=== PATIENT | female | born 1950 | race Caucasian/White ===

== ENCOUNTER → 2018-06-09 14:51 | Outpatient (CLI) | payer MEDICARE, BC, OTHER, SELFPAY ==
[2018-03-03 13:42] VITALS: TEMP 37.1
[2018-06-09 15:10] LABS: Hematocrit 34.2 % (36-46); Hemoglobin 11.4 g/dL (12.0-16.0); Mean Corpuscular HGB Conc 33.3 % (30-36); Mean Corpuscular Hemoglobin 27.7 PG (26-34); Mean Corpuscular Volume 83.2 fL (80-100); Platelet Count 225 X10^3/uL (150-400); Red Blood Cell Count 4.11 X10^6/uL (4.0-5.2); Red Cell Distribution Width 14.8 % (11.6-14.8); White Blood Cell Count 6.5 X10^3/uL (4.5-11.0)
[2018-06-09 15:27] LABS: Neutrophils Absolute Manual 3445 /uL (3000-5900); Total Cells Counted 100
[2018-06-09 15:28] LABS: Anisocytosis 1+; Ovalocytes 1+
[2018-06-09 15:40] LABS: HEMOLYSIS < 15 (0-50); Iron 47 ug/dL (37-170)
[2018-06-09 15:43] LABS: Alanine Aminotransferase 29 IU/L (9-52); Albumin 3.9 g/dL (3.5-5.0); Albumin Globulin Ratio 1.3 (1.0-2.8); Alkaline Phosphatase 78 U/L (38-126); Aspartate Aminotransferase 39 IU/L (14-36); Bilirubin Total 0.4 mg/dL (0.2-1.3); Blood Urea Nitrogen 12 mg/dL (7-17); Carbon Dioxide 28 mmol/L (22-32); Chloride 102 mmol/L (98-107); Estimated Glomerular Filt Rate > 60.0 mL/min (>60); Globulin 2.9 g/dL (1.7-4.1); Glucose 152 mg/dL (80-110); HEMOLYSIS < 15 (0-50); Sodium 140 mmol/L (137-145); Total Protein 6.8 g/dL (6.3-8.2)
[2018-06-09 15:50] LABS: Percent Iron Saturation 12 % (15-50); Total Iron Binding Capacity 393 ug/dL (265-497); Transferrin 318 mg/dL (206-381)
== END ==
PROVIDERS: Family Provider Family Medicine; PCP Family Medicine; Visit Provider Nurse Practitioner Gerontology
DX: D50.9 Iron deficiency anemia, unspecified (principal)
CPT/HCPCS: 36415; 80053; 83540; 83550; 85025

== ENCOUNTER → 2018-06-10 09:43 | Outpatient (CLI) | payer MEDICARE, BC, OTHER, SELFPAY ==
--- NOTE | 2018-06-10 | DI.RAD.S_ITS ---
PROCEDURE: XR ABDOMEN 1V INDICATIONS: FOREIGN BODY IN DIGESTIVE SYSTEM TECHNIQUE: One view of the abdomen acquired. COMPARISON: [facility], CR, XR KUB, 07/06/2015, 12:37. FINDINGS: Surgical changes and devices: Surgical clips again noted along the left iliac region. Bowel: Bowel gas pattern is normal without evidence of obstruction. No radiopaque foreign bodies. Soft tissues: No suspicious abdominal calcifications. Visualized solid organ contours appear normal in size. Bones: No suspicious bony lesions. IMPRESSION: Normal bowel pattern, no foreign body seen. Dictated by: Almas Sadler M.D. on 06/10/2018 at 10:02 Approved by: Almas Sadler M.D. on 06/10/2018 at 10:05
== END ==
PROVIDERS: Family Provider Family Medicine; PCP Family Medicine; Visit Provider Internal Medicine Gastroenterology
DX: T18.9XXA Foreign body of alimentary tract, part unspecified, initial encounter (principal)
CPT/HCPCS: 74018

== ENCOUNTER → 2018-07-10 10:44 | Outpatient (CLI) | payer MEDICARE, BC, OTHER, SELFPAY ==
--- NOTE | 2018-07-10 | DI.MG.S_ITS ---
BILATERAL DIGITAL SCREENING MAMMOGRAM 3D/2D WITH CAD: 07/10/2018 CLINICAL: Routine screening. Comparison is made to exams dated: 07/03/2017 mammogram, 06/22/2016 mammogram, and 06/21/2015 mammogram - [facility]. There are scattered fibroglandular elements in both breasts. Current study was also evaluated with a Computer Aided Detection (CAD) system. No significant masses, calcifications, or other findings are seen in either breast. There is a linear scar marker overlying the upper left breast. There has been no significant interval change. IMPRESSION: NEGATIVE There is no mammographic evidence of malignancy. A 1 year screening mammogram is recommended. This exam was interpreted at Station ID: [id number]. NOTE: For mammograms, a report in lay terms will be sent to the patient. Approximately 15% of breast malignancies will not be visualized mammographically. In the management of a palpable breast mass, a negative mammogram must not discourage biopsy of a clinically suspicious lesion. Electronically Signed By: Germán Mcmullen M.D. ecl/:07/11/2018 03:35:57 letter sent: Normal Exam ACR BI-RADS Category 1: Negative 3341F
== END ==
PROVIDERS: Family Provider Family Medicine; PCP Family Medicine; Visit Provider Family Medicine
DX: Z12.31 Encounter for screening mammogram for malignant neoplasm of breast (principal)
CPT/HCPCS: 77063; 77067

== ENCOUNTER → 2018-07-10 11:34 | Outpatient (CLI) | payer MEDICARE, BC, OTHER, SELFPAY ==
[2018-07-10 12:34] LABS: Estimated Glomerular Filt Rate > 60.0 mL/min (>60)
== END ==
PROVIDERS: PCP Family Medicine; Visit Provider Otolaryngology
DX: J38.01 Paralysis of vocal cords and larynx, unilateral (principal); R22.1 Localized swelling, mass and lump, neck
CPT/HCPCS: 36415; 82565

== ENCOUNTER → 2018-07-14 09:41 | Outpatient (CLI) | payer MEDICARE, BC, OTHER, SELFPAY ==
--- NOTE | 2018-07-14 | DI.CT.S_ITS ---
PROCEDURE: CT SOFT TISSUE NECK W CON INDICATIONS: RIGHT VOCAL CHORD TECHNIQUE: After the administration of intravenous contrast, 3.0 mm axial sections acquired from the skull base to the upper chest. Additional 1.5 mm axial sections acquired through the true vocal cords. 1 mm thick coronal reformats were generated. For radiation dose reduction, the following was used: automated exposure control. COMPARISON: None. FINDINGS: Image quality: Excellent. Vocal cords: The right vocal cord is minimally thickened compared to the left. On coronal images, there is potential hyperenhancement seen of the right vocal cord. The false vocal cords are unremarkable. Neck spaces: The oropharynx, nasopharynx, and pharynx demonstrate no mucosal lesions. The pyriform sinuses, epiglottis, vallecular, and tongue base all appear normal. Extramucosal spaces of the neck are unremarkable. Lymph nodes: No enlarged lymph nodes seen throughout the neck. Vessels: Visualized vasculature appears patent. Glands: The parotid and submandibular glands appear normal. Thyroid gland is small in size. Miscellaneous: Visualized brain and orbits appear unremarkable. Lung apices appear clear. Superficial soft tissues appear normal. Bones: No suspicious bony lesions. Visualized sinuses and mastoids appear unremarkable. Degenerative changes are seen, which are most prominent involving the C6-C7 level. IMPRESSION: The right vocal cord is minimally thickened and potentially hyperenhancing compared to the left. Please correlate with direct visualization via laryngoscopy. Dictated by: Pierre Trinidad M.D. on 07/14/2018 at 10:29 Approved by: Pierre Trinidad M.D. on 07/14/2018 at 10:35
== END ==
PROVIDERS: Family Provider Family Medicine; PCP Family Medicine; Visit Provider Otolaryngology
DX: J38.2 Nodules of vocal cords (principal); J38.00 Paralysis of vocal cords and larynx, unspecified
CPT/HCPCS: 70491; Q9967

== ENCOUNTER → 2018-09-03 12:38 | Outpatient (CLI) | payer MEDICARE, BC, OTHER, SELFPAY | PROVIDERS: Family Provider Family Medicine; PCP Family Medicine; Visit Provider Family Medicine | DX: Z13.820 Encounter for screening for osteoporosis (principal); M85.851 Other specified disorders of bone density and structure, right thigh; Z78.0 Asymptomatic menopausal state; E11.9 Type 2 diabetes mellitus without complications; E07.9 Disorder of thyroid, unspecified | CPT/HCPCS: 77080 ==

== ENCOUNTER → 2018-09-09 14:26 | Outpatient (CLI) | payer MEDICARE, BC, OTHER, SELFPAY ==
[2018-09-09 15:15] LABS: Add Manual Diff / Slide Review NO; Basophils Percent Auto 0.7 % (0-2); Eosinophils Percent Auto 2.9 % (2-4); Hematocrit 38.4 % (36-46); Hemoglobin 12.9 g/dL (12.0-16.0); Lymphocytes Percent Auto 35.3 % (25-40); Mean Corpuscular HGB Conc 33.5 % (30-36); Mean Corpuscular Volume 86.4 fL (80-100); Monocytes Percent Auto 6.5 % (3-14); Neutrophils Absolute Auto 3700 /uL (3000-5900); Neutrophils Percent Auto 54.6 % (50-75); Platelet Count 185 X10^3/uL (150-400); Red Blood Cell Count 4.44 X10^6/uL (4.0-5.2); Red Cell Distribution Width 18.7 % (11.6-14.8); White Blood Cell Count 6.7 X10^3/uL (4.5-11.0)
[2018-09-09 15:25] LABS: Alanine Aminotransferase 37 IU/L (9-52); Albumin 4.1 g/dL (3.5-5.0); Albumin Globulin Ratio 1.5 (1.0-2.8); Alkaline Phosphatase 69 U/L (38-126); Aspartate Aminotransferase 42 IU/L (14-36); BUN Creatinine Ratio 14.3 (6-22); Bilirubin Total 0.3 mg/dL (0.2-1.3); Blood Urea Nitrogen 10 mg/dL (7-17); Carbon Dioxide 28 mmol/L (22-32); Chloride 102 mmol/L (98-107); Estimated Glomerular Filt Rate > 60.0 mL/min (>60); Globulin 2.7 g/dL (1.7-4.1); Glucose 138 mg/dL (80-110); HEMOLYSIS < 15 (0-50); Potassium 4.1 mmol/L (3.4-5.1); Sodium 141 mmol/L (137-145); Total Protein 6.8 g/dL (6.3-8.2)
[2018-09-09 15:53] LABS: HEMOLYSIS < 15 (0-50); Iron 87 ug/dL (37-170)
[2018-09-09 16:04] LABS: Percent Iron Saturation 29 % (15-50); Total Iron Binding Capacity 296 ug/dL (265-497); Transferrin 229 mg/dL (206-381)
== END ==
PROVIDERS: Family Provider Family Medicine; PCP Family Medicine; Visit Provider Internal Medicine Hematology & Oncology
DX: D50.9 Iron deficiency anemia, unspecified (principal)
CPT/HCPCS: 36415; 80053; 82728; 83540; 83550; 85025

== ENCOUNTER 2018-09-17 12:30 | Outpatient (RCR) | payer MEDICARE, BC, OTHER, SELFPAY | END 2018-10-13 10:23 | LOC: SP 12:30 | PROVIDERS: Family Provider Family Medicine; PCP Family Medicine; Visit Provider Specialist | DX: J38.01 Paralysis of vocal cords and larynx, unilateral (principal) | CPT/HCPCS: 92507; 92524; 92526; 92610 ==

== ENCOUNTER → 2019-08-04 09:48 | Outpatient (CLI) | payer MEDICARE, BC, OTHER, SELFPAY ==
--- NOTE | 2019-08-04 | DI.MG.S_ITS ---
BILATERAL DIGITAL SCREENING MAMMOGRAM 3D/2D WITH CAD: 08/04/2019 CLINICAL: Routine screening. Comparison is made to exams dated: 07/10/2018 mammogram, 07/03/2017 mammogram, and 06/22/2016 mammogram - [facility]. There are scattered fibroglandular elements in both breasts. Current study was also evaluated with a Computer Aided Detection (CAD) system. No significant masses, calcifications, or other findings are seen in either breast. There has been no significant interval change. IMPRESSION: NEGATIVE There is no mammographic evidence of malignancy. A 1 year screening mammogram is recommended. This exam was interpreted at Station ID: [id number]. NOTE: For mammograms, a report in lay terms will be sent to the patient. Approximately 15% of breast malignancies will not be visualized mammographically. In the management of a palpable breast mass, a negative mammogram must not discourage biopsy of a clinically suspicious lesion. Electronically Signed By: Carolina barnes/cynthia:08/04/2019 10:29:35 letter sent: Normal Exam ACR BI-RADS Category 1: Negative 3341F
== END ==
PROVIDERS: Family Provider Family Medicine; PCP Family Medicine; Visit Provider Family Medicine
DX: Z12.31 Encounter for screening mammogram for malignant neoplasm of breast (principal)
CPT/HCPCS: 77063; 77067

== ENCOUNTER → 2020-05-11 08:28 | Outpatient (CLI) | payer MEDICARE, BC, OTHER, SELFPAY ==
--- NOTE | 2020-05-11 | DI.NM.S_ITS ---
PROCEDURE: NM GASTRIC EMPTYING STUDY RADIOPHARMACEUTICAL: 1.0 mCi Tc-99m sulfur colloid in an egg sandwich. INDICATIONS: Nausea with vomiting, unspecified TECHNIQUE: A Tc-99m labeled sulfur colloid labeled egg sandwich or oatmeal was served to the patient. Anterior and posterior planar images of the abdomen were obtained at 0 minutes and 30 minutes, then at hourly intervals up to 4 hours. The patient was upright and ambulating during the interval. COMPARISON: None. FINDINGS: The stomach has normal size, morphology, and position. There is delayed emptying of solid gastric contents from the stomach by visual inspection. No gastroesophageal reflux is visualized. The percentage of tracer retained at specific time points are as follows: Time point Percent gastric retention Normal range 1 hour 11% 30% to 90% T1/2: 285 minutes. IMPRESSION: Delayed gastric emptying. Dictated by: Jagdeep Mccormick M.D. on 05/11/2020 at 13:36 Approved by: Jagdeep Mccormick M.D. on 05/11/2020 at 13:39
== END ==
PROVIDERS: Family Provider Family Medicine; PCP Family Medicine; Referring Provider Internal Medicine; Visit Provider Internal Medicine
DX: K30 Functional dyspepsia (principal); R14.0 Abdominal distension (gaseous); R11.2 Nausea with vomiting, unspecified
CPT/HCPCS: 78264; A9541

== ENCOUNTER → 2020-06-22 12:44 | Outpatient (CLI) | payer MEDICARE, BC, OTHER, SELFPAY ==
--- NOTE | 2020-06-22 13:55 | DIET.PN ---
Diabetes Intake: Initial Assessment Assess: Ms. Escamilla is a 70 YOF referred for type 2 diabetes. She has a long standing hx (90?s) of Type 2 Diabetes with a strong family hx including mother, grandmother, and brother. She reports shas not been eating well. Unsure what to eat related to GI issues for the last 5-6 mo. Intake includes a lot of cereal, toast, eggs, nutrition supplements, sweet treats, tea, and occasional carbonated beverage. She monitor?s her BG every other day. Labs: Per pt report: A1c: 7.0 Meds: glipizide am; metformin 500mg BID Wt: 218lb Ht: 67in BMI: 34.14 DX: Altered nutrition related laboratory values related to impaired glucose metabolism, lack of previous exposure to nutrition information as evidenced by pt report, diagnosis of diabetes, previous diet high in refined carbohydrates. Intervention: 1. Completed intake assessment. Discussed barriers to care. 2. Discussed pathophysiology of diabetes. Reviewed A1c and its correlation to blood glucose numbers. Discussed recommended BG ranges. 3. Discussed importance of self-monitoring, how often, and when to check. 4. Reviewed hyper/hypoglycemia and treatment. 5. Reviewed safe disposal of equipment (strip/lancets/insulin needles). 6. Created SMART goals for pt self-care and success. 7. Discussed program curriculum outline and class needs based on individual goals. 8. Discussed Gastroparesis MNT. SMART Goals: 1. Pt would like to lose 10 lb (5%) in the next 3 mo with an overall goal of 185 lb through learning proper eating habits for weight, activity level, and recent GI complications. Monitor/Evaluate: Anticipate excellent compliance. Basic Nutrition class scheduled for Jul 05.
== END ==
PROVIDERS: Family Provider Family Medicine; PCP Family Medicine; Referring Provider Family Medicine; Visit Provider Family Medicine
DX: E11.9 Type 2 diabetes mellitus without complications (principal); Z79.84 Long term (current) use of oral hypoglycemic drugs
CPT/HCPCS: G0108

== ENCOUNTER → 2020-07-05 14:20 | Outpatient (CLI) | payer MEDICARE, BC, OTHER, SELFPAY ==
--- NOTE | 2020-07-05 16:40 | DIET.PN ---
Diabetes: Healthy Eating 1 Intervention: ? Discussed pathophysiology of diabetes and impact of nutrition/diet on blood sugar control.? Discussed fed versus non-fed state.?? ? Reviewed importance of Balance, Variety, and Moderation. ? Discussed the effect of carbohydrates/protein/fat on blood sugar control.? ? Stressed importance of consistent carbohydrate intake at each meal and provided instructions for recommended servings/portions of carbohydrates/protein per meal. Provided educational material. ? Reviewed carbohydrate counting and measuring carbohydrate content via serving sizes and reading nutrition labels.? Provided handouts.?? ? Discussed the difference between simple versus complex carbohydrates and the effect of fiber on blood sugar control.? Discussed various methods to increase fiber content in diet. ? Discussed the plate method for creating more carbohydrate conscious balanced meals. ? Stressed importance of meal timing and not going >4-5 hours between meals. Encouraged adding protein to evening snack to support glucose control overnight. ? Discussed importance of making dietary habits part of lifestyle change.
== END ==
PROVIDERS: Family Provider Family Medicine; PCP Family Medicine; Referring Provider Family Medicine; Visit Provider Family Medicine
DX: E11.9 Type 2 diabetes mellitus without complications (principal); Z71.3 Dietary counseling and surveillance
CPT/HCPCS: G0109

== ENCOUNTER → 2020-07-14 14:15 | Outpatient (CLI) | payer MEDICARE, BC, OTHER, SELFPAY ==
--- NOTE | 2020-07-14 16:03 | DIET.PN ---
Diabetes: Healthy Eating 2 Intervention: Fats effects on glucose, weight, heart disease, cholesterol Sat Vs Unsat Protein- animal and plant based options Low, med, high fat meats Sugar substitutes Sodium Health claims Grocery shopping guidelines Eating away from home Alcohol Sick day guidelines Ketone Testing
== END ==
PROVIDERS: Family Provider Family Medicine; PCP Family Medicine; Referring Provider Family Medicine; Visit Provider Family Medicine
DX: E11.9 Type 2 diabetes mellitus without complications (principal); Z71.3 Dietary counseling and surveillance
CPT/HCPCS: G0109

== ENCOUNTER → 2020-07-26 09:52 | Outpatient (CLI) | payer MEDICARE, BC, OTHER, SELFPAY ==
[2020-07-26 10:49] VITALS: BMI 33.6
--- NOTE | 2020-07-26 10:59 | DIET.PN ---
DIABETES Nutrition Initial Assessment:? ASSESS:?? Ms. Escamilla is a 70 yof??referred for type 2 diabetes seen as part of DSME program. She continues to have frequent nausea, but reports only 2 episodes of vomiting in the last month with dietary changes. She is incorporating small, frequent meals into her routine and is limiting fiber to 3grams/meal. She walking the park 3x/wk and working in her garden the other days, but has noticed this to be more challenging as her energy levels are very low due to anemia. ??? LABS: Per pt report:? A1c: 7.1 FB?s ? MEDS:?? no change ? DIET: Per 24-hour recall:? B: 2 slices white toast w/ apple sauce L: protein drink w/ 2 crackers and cheese D: tilapia w/ mashed potatoes and peas, ice cream Eating Out: rarely Changes in Appetite: less hungry; nervous to eat Nutrition Supplements: Papaya enzyme ? Weight: 214lb Height: 67in BMI: ? 33.5 ? Exercise:? walking; gardening NUTRITION DX 1. Altered Nutrition related labs related to impaired glucose metabolism, lack of previous exposure to accurate nutrition information as evidenced by pt report, dx of diabetes, previous diet high in refined carbohydrates.? INTERVENTION(s): 1. Reviewed pathophysiology of diabetes and impact of nutrition/diet on blood sugar control.? Discussed fed versus non-fed state.?? 2. Discussed the effect of carbohydrates/protein/fat on blood sugar control.? Stressed importance of consistent carbohydrate intake at each meal and provided instructions for recommended servings/portions of carbohydrates/protein per meal. Provided pt with educational material. 3. Reviewed carbohydrate counting and measuring carbohydrate content via serving sizes and reading nutrition labels.? Provided handouts.?? 4. Provided gastroparesis handout and encouraged limiting fiber to 3g/meal, limiting saturated fats, and incorporating nutrition supplements for protein support. 5. Stressed importance of meal timing and not going >4 hours between meals. Encouraged adding protein to meals and snacks for glucose control. 6. Discussed healthy weight loss goals of 1-2lbs per week through diet and exercise.? Pt agreeable to walking at least 30 minutes daily to encourage gastric movement. 7. Recommend alternating monitoring fasting and evening glucose. MONITOR/EVALUATE: Anticipate good compliance.? Nutrition follow-up scheduled for 1 month.
== END ==
PROVIDERS: Family Provider Family Medicine; PCP Family Medicine; Referring Provider Family Medicine; Visit Provider Family Medicine
DX: E11.9 Type 2 diabetes mellitus without complications (principal); R11.0 Nausea; E66.9 Obesity, unspecified; Z68.33 Body mass index [BMI] 33.0-33.9, adult; Z71.3 Dietary counseling and surveillance
CPT/HCPCS: G0109

== ENCOUNTER → 2020-08-04 12:48 | Outpatient (CLI) | payer MEDICARE, BC, OTHER, SELFPAY ==
[2020-08-04 13:04] LABS: Add Manual Diff / Slide Review NO; Basophils Absolute Auto 100 /uL (0-100); Basophils Percent Auto 0.7 % (0-2); Eosinophils Absolute Auto 200 /uL (0-450); Eosinophils Percent Auto 2.3 % (2-4); Hematocrit 32.5 % (36-46); Hemoglobin 10.4 g/dL (12.0-16.0); Lymphocytes Absolute Auto 2700 /uL (1100-4500); Lymphocytes Percent Auto 35.2 % (25-40); Mean Corpuscular Hemoglobin 24.5 PG (26-34); Mean Corpuscular Volume 76.4 fL (80-100); Monocytes Absolute Auto 600 /uL (0-900); Monocytes Percent Auto 7.7 % (3-14); Neutrophils Absolute Auto 4200 /uL (1500-7000); Neutrophils Percent Auto 54.1 % (50-75); Platelet Count 298 X10^3/uL (150-400); Red Blood Cell Count 4.25 X10^6/uL (4.0-5.2); Red Cell Distribution Width 15.9 % (11.6-14.8); White Blood Cell Count 7.8 X10^3/uL (4.5-11.0)
[2020-08-04 13:21] LABS: HEMOLYSIS < 15 (0-50); Iron 37 ug/dL (37-170)
[2020-08-04 13:32] LABS: Percent Iron Saturation 8 % (15-50); Total Iron Binding Capacity 447 ug/dL (265-497); Transferrin 366 mg/dL (206-381)
[2020-08-04 14:00] LABS: Ferritin 6 ng/mL (11-264)
== END ==
PROVIDERS: Family Provider Family Medicine; PCP Family Medicine; Referring Provider Internal Medicine Hematology & Oncology; Visit Provider Internal Medicine Hematology & Oncology
DX: D50.9 Iron deficiency anemia, unspecified (principal)
CPT/HCPCS: 36415; 82728; 83540; 83550; 85025

== ENCOUNTER → 2020-08-10 10:59 | Outpatient (CLI) | payer MEDICARE, BC, OTHER, SELFPAY ==
--- NOTE | 2020-08-10 | DI.MG.S_ITS ---
BILATERAL DIGITAL SCREENING MAMMOGRAM 3D/2D WITH CAD: 08/10/2020 CLINICAL: Routine screening. Comparison is made to exams dated: 08/04/2019 mammogram, 07/10/2018 mammogram, 07/03/2017 mammogram, and 06/22/2016 mammogram - [facility]. There are scattered fibroglandular elements in both breasts. Current study was also evaluated with a Computer Aided Detection (CAD) system. No significant masses, calcifications, or other findings are seen in either breast. There has been no significant interval change. IMPRESSION: NEGATIVE There is no mammographic evidence of malignancy. A 1 year screening mammogram is recommended. This exam was interpreted at Station ID: [id number]. NOTE: For mammograms, a report in lay terms will be sent to the patient. Approximately 15% of breast malignancies will not be visualized mammographically. In the management of a palpable breast mass, a negative mammogram must not discourage biopsy of a clinically suspicious lesion. Electronically Signed By: Aditya jiménez/cynthia:08/10/2020 12:44:16 letter sent: Normal Exam ACR BI-RADS Category 1: Negative 3341F
== END ==
PROVIDERS: Family Provider Family Medicine; PCP Family Medicine; Referring Provider Family Medicine; Visit Provider Family Medicine
DX: Z12.31 Encounter for screening mammogram for malignant neoplasm of breast (principal)
CPT/HCPCS: 77063; 77067

== ENCOUNTER → 2020-08-23 09:47 | Outpatient (CLI) | payer MEDICARE, BC, OTHER, SELFPAY ==
--- NOTE | 2020-08-23 10:40 | DIET.PN ---
Diabetes Follow Up Assess: Ms Escamilla is a 70 yof seen for 3 mo follow up visit for diabetes and gastroparesis. She reports improvement in GI complications with only 1 episode of nausea with abdominal pain in the last month. She continues to eat small meals when she is hungry with limited fiber (3g/meal). She continues to aim for daily activity through walking or gardening, but continues to find this challenging with decreased energy levels. She recently started seeing Dr. Reina for iron infusions. Labs: A1c: 7.1 Meds: glipizide am; metformin 500mg BID Dietary changes: reduced fiber intake, foods with less than 3 grams fiber/serving Ht: 67in Wt: 214lb BMI: 33.5 Nutrition DX: Altered nutrition related laboratory values related to impaired glucose metabolism, lack of previous exposure to nutrition information as evidenced by pt report, diagnosis of diabetes, previous diet high in refined carbohydrates. Intervention: 1. Completed follow up assessment. Reviewed barriers to care. 2. Reviewed new labs and importance of continued BG monitoring. 3. Reviewed SMART goals and made modifications where appropriate including wt management, activity, and A1c goals. 4. Discussed plan for ongoing support. Provided information for continued support and success. SMART goals: 1. Pt would like to lose 10 lb (5%) in the next 3 mo with an overall goal of 185lb through continued improvement in eating habits for weight, activity level, and gastroparesis. Monitor/Evaluate: Pt will follow up in 3 mo to discuss new labs and barriers to care.
== END ==
PROVIDERS: Family Provider Family Medicine; PCP Family Medicine; Referring Provider Family Medicine; Visit Provider Family Medicine
DX: E11.43 Type 2 diabetes mellitus with diabetic autonomic (poly)neuropathy (principal); K31.84 Gastroparesis; E66.9 Obesity, unspecified; Z79.84 Long term (current) use of oral hypoglycemic drugs; Z68.33 Body mass index [BMI] 33.0-33.9, adult; Z71.3 Dietary counseling and surveillance
CPT/HCPCS: G0109

== ENCOUNTER → 2020-11-03 14:20 | Oncology outpatient (ONC) | payer MEDICARE, BC, OTHER, SELFPAY ==
[2018-07-28] MEDS: IRON SUCROSE 200 MG in SODIUM CHLORIDE 0.9% 100 ML 220 ML IV (15:38)
--- NOTE | 2018-07-28 16:36 | PC.NURSE ---
Vital signs taken but machine inadvertently shut off before recording
[2018-08-04 14:54] VITALS: BP 130/68; PULSE 72; RESP 16; TEMP 36.8; O2SAT 97
[2018-08-04] MEDS: IRON SUCROSE 200 MG in SODIUM CHLORIDE 0.9% 100 ML 220 ML IV (15:00)
[2018-08-11 14:49] VITALS: BP 144/75; PULSE 76; RESP 18; TEMP 36.7; O2SAT 98
[2018-08-11] MEDS: IRON SUCROSE 200 MG in SODIUM CHLORIDE 0.9% 100 ML 220 ML IV (14:53)
--- NOTE | 2018-09-15 15:14 | P.PNONC_ITS ---
PN -Subjective Interval history: 68-year-old female with iron deficiency anemia status post 5 infusions weekly of iron sucrose (Venofer). Patient has tolerated the infusion very well. She completed on 08/11/2018. She presents here today for scheduled follow-up. Patient said that she is feeling very good pressure has good energy good appetite. She denies any nausea vomiting. No diarrhea no constipation. For detailed medical history please see my previous note dated 06/09/2018. Briefly she has a long history of iron deficiency anemia likely due to obscured gastrointestinal bleeding. Patient underwent extensive surgical workup in 2017 including EGD, colonoscopy, small-bowel capsule endoscopy, but no obvious bleeding sites were identified. CT scan in 01/15/2018 was unremarkable. - Additional ROS All systems PM: reviewed and no additional remarkable complaints except as stated Home Medications and Allergies Home Medications Medication Instructions Recorded Confirmed Type cyanocobalamin (vitamin B-12) 1,000 mcg PO Q DAY #0 01/18/17 06/16/18 History [Vitamin B-12] cholecalciferol (vitamin D3) 1 tab PO QDAY #0 12/27/17 06/16/18 History [Vitamin D3] Allergies Allergy/AdvReac Type Severity Reaction Status Date / Time No Known Drug Allergies Allergy Verified 06/16/18 14:52 Exam Vital signs: Last Vital Signs Temp 98.1 F 08/11/18 14:49 Pulse 76 08/11/18 14:49 Resp 18 08/11/18 14:49 BP 144/75 H 08/11/18 14:49 Pulse Ox 98 08/11/18 14:49 ECOG 1 Narrative: Constitutional: WDWN, NAD, obese, well groomed, pleasant and cooperative. HEENT: NCAT, EOMI, PERRLA, anicteric sclera, no hearing difficulty; Oral mucus membrane moist and without ulcers. Neck: Supple, symmetrical, and tracheal midline; No palpable thyromegaly and no palpable lymph nodes. Respiratory: No use of accessory muscles. Clear to auscultation, and no wheezes or rales or rubs. Cardiovascular: Regular rate and rhythm, S1 and S2 normal, no murmurs gallops or rubs. No JVD. No pitting edema of lower extremities. Abdomen: Soft, nontender, non-distended, bowel sounds normal, no palpable organomegaly, no hernia, no palpable masses. Lower extremities: No palpable pedal edema. Lymphatic: no palpable lymph nodes in the neck, axillae, or groins. Musculoskeletal: normal gait and station, no clubbing, no cyanosis, no pitting edema. Skin: no rashes, no ulcers, no petechiae Neurological: Awake and alert and oriented x3. CN II-XII grossly intact. No focal motor or sensory deficit. Psychiatric: Good judgment, good insight, normal affect, normal thought process , cooperative, no depression, no anxiety. Results - Labs 09/09/2018: WBC 6.7, hemoglobin 12.9, hematocrit 38.4, MCV 86.4, platelets 185. Sodium 141, potassium 4.1, chloride 102, carbon dioxide 28, BUN 10, creatinine 0.7, glucose 138, calcium 9.0, iron 87, TIBC 296, saturation 29%, transferrin 229, ferritin 99, total bilirubin 0.3, AST 42, ALT 37, alk-phos 69, total protein 6.8, albumin 4.1, - Imaging Additional studies: Procedures Closed [endoscopic] biopsy of large intestine (03/03/14) Other endoscopy of small intestine (03/03/14) Assessment and Plan (1) Iron (Fe) deficiency anemia Assessment and Plan: I reviewed the laboratory tests with the patient. Patient has normal CBC with differentials and normal iron storage. Patient had EGD and colonoscopy in 2017 and small bowel capsule endoscopy in the same year. No obvious bleeding sites were identified. I talked with the patient that she will need continued follow- up. She will need iron infusion on as needed basis. Patient voiced understanding. The patient will continue follow-up with Dr. Flowers, her primary care provider. If there are any new signs of iron deficiency anemia, she will call us for follow-up visit.
[2018-09-15 15:17] VITALS: BP 149/80; PULSE 84; RESP 18; TEMP 36.9; O2SAT 100
--- NOTE | 2020-07-20 09:19 | ONC.MSW ---
Description: New Referral Navigation Reason for Referral: Anemia Activity: Reviewed referral, assessed for medical status and immediate needs. Forwarded to scheduling for next available initial consult visit.
[2020-08-04 12:05] VITALS: BP 152/67; PULSE 84; RESP 18; TEMP 36.6; O2SAT 97
--- NOTE | 2020-08-04 12:10 | P.PNONC_ITS ---
PN -Subjective Interval history: 70-year-old female with iron deficiency anemia of unknown etiology. She requires intermittent iron sucrose (Venofer) infusion. I saw the patient last time on 09/15/2018. Since then patient has been followed with Dr. Flowers, her primary care provider. Patient has had multiple workup in 2017 including EGD, colo noscopy, small-bowel capsule endoscopy, but no obvious bleeding sites were identified. CT scan in 01/15/2018 was unremarkable. Recently, she said she felt tired. She said she gets that symptoms when her iron is low. In addition she also noticed that she has craving for salt. Those are the russell is for her to know that her iron is low. She was seen and Dr. carter office on 07/11/2020. Lab tests showed vitamin B12 less than 50 pg/cc. WBC 5.9, hemoglobin 10.5, hematocrit 32.4, MCV 78.4, platelets 278. She was then started on Vitamin B12 injection 2000 mcg every 2 weeks, and is now being followed by Dr. Flowers. - Patient Self-Reported Symptoms SR Constitution: Fatigue/Malaise SR ears, nose, mouth, throat issues: Ears ringing SR Cardiovascular issues: Dizzy/lightheaded SR Gastrointestinal issues: Poor or no appetite, Nausea, Vomiting SR Neuro issues: Lightheaded/dizzy, Numbness or tingling - Additional ROS All systems PM: reviewed and no additional remarkable complaints except as stated Home Medications and Allergies Home Medications Medication Instructions Recorded Confirmed Type Vitamin B-12 2,000 units SUBCUT Q8W 08/04/20 08/04/20 History aspirin 81 mg PO DAILY 08/04/20 08/04/20 History cholecalciferol (vitamin D3) 1,000 unit DAILY 08/04/20 08/04/20 History [Vitamin D3] glipizide 5 mg PO DAILY 08/04/20 08/04/20 History levothyroxine 100 mcg PO DAILY 08/04/20 08/04/20 History lisinopril 5 mg PO DAILY 08/04/20 08/04/20 History metformin 500 mg PO DAILY 08/04/20 08/04/20 History pantoprazole 40 mg PO DAILY 08/04/20 08/04/20 History simvastatin 10 mg PO DAILY 08/04/20 08/04/20 History Allergies Allergy/AdvReac Type Severity Reaction Status Date / Time No Known Drug Allergies Allergy Verified 06/16/18 14:52 Exam Vital signs: Vital Signs Temp Pulse Resp BP Pulse Ox 08/04/20 12:05 97.9 F 84 18 152/67 H 97 Intake and Output 08/03/20 08/04/20 08/04/20 23:59 07:59 15:59 Other: Weight 98 kg Patient Weight 08/04/20 23:59 Weight 98 kg - Constitutional positive no acute distress, positive obese, positive cooperative - Routine HEENT Exam Head: Present: normocephalic, atraumatic Eye: Present: EOMI, PERRL, normal accommodation. Absent: conjunctival icterus - Routine Neck Exam Present: supple. Absent: lymphadenopathy, thyromegaly - Routine Chest/Breast/Axilla Exam Axillae: Absent: lymphadenopathy - Routine Respiratory Exam Present: Clear to auscultation bilaterally. Absent: wheezes - Routine Cardiovascular Exam Present: RRR, S1, S2. Absent: murmur, gallop, rubs - Routine Abdominal Exam Present: soft. Absent: tenderness, distended, organomegaly - Routine Extremities Exam Absent: edema - Routine Neurological Exam Present: alert, oriented X3, CN II-XII intact. Absent: sensory deficit, motor deficit - Routine Psychiatric Exam Present: normal affect Results - Labs Pending - Imaging Additional studies: Procedures COLONOSCOPY (05/03/10) Closed [endoscopic] biopsy of large intestine (03/03/14) Other endoscopy of small intestine (03/03/14) Assessment and Plan (1) Iron (Fe) deficiency anemia I reviewed the lab tests with the patient. It was drawn on 07/11/2020. Patient has a hypochromic microcytic anemia. In addition vitamin B12 level is below 50. Clinically patient has symptoms she is familiar with including fatigue, and craving for salt. I agree with the patient that the evidence is consistent with iron deficient on top of vitamin B12 deficiency. I talked with the patient that I will proceed with intravenous iron infusion. I encouraged the patient continue follow-up with Dr. Flowers for vitamin B12 injection. Patient voiced understanding. Plan: CBC/D, iron profile, ferritin Venofer 200 mg iv weekly x 5, starting 08/18/2020 per patient preference F/u with Dr. Flowers for B12 injection RTC in 3 months, CBC, CMP, Iron panel, Ferritin, B12, folate
[2020-08-17 11:41] VITALS: BP 142/70; PULSE 79; RESP 16; TEMP 37; O2SAT 98
[2020-08-17] MEDS: IRON SUCROSE 200 MG in SODIUM CHLORIDE 0.9% 100 ML 220 ML IV (11:46)
[2020-08-25 14:30] VITALS: BP 151/71; PULSE 79; RESP 18; TEMP 36.3; O2SAT 100
[2020-08-25] MEDS: IRON SUCROSE 200 MG in SODIUM CHLORIDE 0.9% 100 ML 220 ML IV (14:41)
[2020-09-01 14:49] VITALS: BP 136/62; PULSE 75; RESP 16; O2SAT 99
[2020-09-01] MEDS: IRON SUCROSE 200 MG in SODIUM CHLORIDE 0.9% 100 ML 220 ML IV (15:06)
[2020-09-07] MEDS: IRON SUCROSE 200 MG in SODIUM CHLORIDE 0.9% 100 ML 220 ML IV (14:42)
[2020-09-07 14:50] VITALS: BP 125/61; PULSE 71; RESP 16; TEMP 36.8; O2SAT 100
[2020-09-15 14:37] VITALS: BP 150/70; PULSE 79; RESP 16; TEMP 37; O2SAT 100
[2020-09-15] MEDS: IRON SUCROSE 200 MG in SODIUM CHLORIDE 0.9% 100 ML 110 ML IV (14:38)
[2020-10-26 10:24] LABS: Add Manual Diff / Slide Review NO; Basophils Absolute Auto 100 /uL (0-100); Basophils Percent Auto 0.8 % (0-2); Eosinophils Absolute Auto 200 /uL (0-450); Eosinophils Percent Auto 3.1 % (2-4); Hemoglobin 13.3 g/dL (12.0-16.0); Lymphocytes Absolute Auto 2300 /uL (1100-4500); Lymphocytes Percent Auto 36.5 % (25-40); Mean Corpuscular HGB Conc 33.2 % (30-36); Mean Corpuscular Hemoglobin 27.8 PG (26-34); Monocytes Absolute Auto 500 /uL (0-900); Monocytes Percent Auto 8.2 % (3-14); Neutrophils Absolute Auto 3300 /uL (1500-7000); Neutrophils Percent Auto 51.4 % (50-75); Platelet Count 211 X10^3/uL (150-400); Red Blood Cell Count 4.77 X10^6/uL (4.0-5.2); Red Cell Distribution Width 21.5 % (11.6-14.8); White Blood Cell Count 6.3 X10^3/uL (4.5-11.0)
[2020-10-26 10:40] LABS: Anisocytosis 2+; Poikilocytosis 1+
[2020-10-26 11:03] LABS: Alanine Aminotransferase 23 IU/L (<35); Albumin 4.4 g/dL (3.5-5.0); Albumin Globulin Ratio 1.3 (1.0-2.8); Alkaline Phosphatase 78 U/L (38-126); Aspartate Aminotransferase 38 IU/L (14-36); BUN Creatinine Ratio 13.6 (6-22); Bilirubin Total 0.4 mg/dL (0.2-1.3); Blood Urea Nitrogen 11 mg/dL (7-17); Calcium 9.4 mg/dL (8.4-10.2); Carbon Dioxide 29 mmol/L (22-32); Chloride 103 mmol/L (98-107); Estimated Glomerular Filt Rate > 60.0 mL/min (>60); Globulin 3.4 g/dL (1.7-4.1); Glucose 180 mg/dL (80-110); Potassium 4.5 mmol/L (3.4-5.1); Sodium 136 mmol/L (137-145); Total Protein 7.8 g/dL (6.3-8.2)
[2020-10-26 11:20] LABS: Vitamin D 25 Hydroxy (D3) 37.1 ng/mL (30.0-100.0)
[2020-10-26 11:34] LABS: Thyroid Stimulating Hormone 0.389 uIU/mL (0.47-4.68)
[2020-10-26 11:37] LABS: Ferritin 59 ng/mL (11-264)
[2020-10-26 12:22] LABS: HEMOLYSIS < 15 (0-50); Iron 99 ug/dL (37-170)
[2020-10-26 12:35] LABS: Percent Iron Saturation 29 % (15-50); Total Iron Binding Capacity 338 ug/dL (265-497); Transferrin 256 mg/dL (206-381)
[2020-10-26 12:59] LABS: Alanine Aminotransferase 23 IU/L (<35); Albumin 4.3 g/dL (3.5-5.0); Albumin Globulin Ratio 1.4 (1.0-2.8); Alkaline Phosphatase 78 U/L (38-126); Aspartate Aminotransferase 39 IU/L (14-36); BUN Creatinine Ratio 15.4 (6-22); Bilirubin Total 0.3 mg/dL (0.2-1.3); Blood Urea Nitrogen 12 mg/dL (7-17); Calcium 9.5 mg/dL (8.4-10.2); Carbon Dioxide 27 mmol/L (22-32); Chloride 104 mmol/L (98-107); Cholesterol 154 mg/dL (140-199); Estimated Glomerular Filt Rate > 60.0 mL/min (>60); Globulin 3.1 g/dL (1.7-4.1); Glucose 180 mg/dL (80-110); HDL Cholesterol 41 mg/dL (40-60); HEMOLYSIS < 15 (0-50); LDL Cholesterol Calculated 79 mg/dL (<100); Potassium 4.9 mmol/L (3.4-5.1); Sodium 138 mmol/L (137-145); Total Protein 7.4 g/dL (6.3-8.2); Triglycerides 170 mg/dL (35-150); VLDL Cholesterol Calculated 34 mg/dL (2-30)
[2020-10-26 13:46] LABS: Vitamin B12 341 pg/mL (239-931)
[2020-10-26 14:55] LABS: Hemoglobin A1C% w Est Avg Glu 6.4 % (4.0-6.0)
[2020-10-26 15:16] LABS: Folate 8.6 ng/mL (2.76-20.0); HEMOLYSIS < 15 (0-50); Vitamin B12 336 pg/mL (239-931)
[2020-11-03 15:10] VITALS: BP 135/85; PULSE 88; RESP 18; TEMP 36.4; O2SAT 96
--- NOTE | 2020-11-03 15:31 | ONC.PN ---
PN -Subjective Interval history: 70-year-old female with iron deficiency anemia of unknown etiology. She requires intermittent iron sucrose (Venofer) infusion. I first saw the patient on 09/15/2018. Since then patient has been followed with Dr. Flowers, her primary care provider. The patient has had multiple workup in 2017 including EGD, colonoscopy, small-bowel capsule endoscopy, but no obvious bleeding sites were identified. CT scan in 01/15/2018 was unremarkable. She was aso found to have vitamin B12 deficiency. Therefore, she was also started on Vitamin B12 injection 2000 mcg every 2 weeks, and is now being followed by Dr. Flowers. Recently she completed iron infusion 200 mg weekly x5 from 08/17/2020 through 09/15/2020. She presents here today for scheduled follow-up visit. She said she feels good. She has good energy and good appetite. She denies any shortness of breath or chest pain. She denies any abdominal pain diarrhea or constipation. - Patient Self-Reported Symptoms SR Constitution: Fatigue/Malaise SR ears, nose, mouth, throat issues: Ears ringing SR Cardiovascular issues: Dizzy/lightheaded SR Skin issues: Blistering or peeling SR Gastrointestinal issues: Poor or no appetite, Nausea, Vomiting SR Neuro issues: Numbness or tingling - Additional ROS All systems PM: reviewed and no additional remarkable complaints except as stated Home Medications and Allergies Home Medications Medication Instructions Recorded Confirmed Type Vitamin B-12 2,000 units SUBCUT Q2W 08/04/20 11/03/20 History aspirin 81 mg PO DAILY 08/04/20 11/03/20 History cholecalciferol (vitamin D3) 1,000 unit DAILY 08/04/20 11/03/20 History [Vitamin D3] glipizide 5 mg PO DAILY 08/04/20 11/03/20 History levothyroxine 100 mcg PO DAILY 08/04/20 11/03/20 History lisinopril 5 mg PO DAILY 08/04/20 11/03/20 History metformin 500 mg PO BID 08/04/20 11/03/20 History pantoprazole 40 mg PO DAILY 08/04/20 11/03/20 History simvastatin 10 mg PO DAILY 08/04/20 11/03/20 History Allergies Allergy/AdvReac Type Severity Reaction Status Date / Time No Known Drug Allergies Allergy Verified 06/16/18 14:52 Exam Vital signs: Last Vital Signs Temp 97.5 F L 11/03/20 15:10 Pulse 88 11/03/20 15:10 Resp 18 11/03/20 15:10 BP 135/85 11/03/20 15:10 Pulse Ox 96 11/03/20 15:10 - Constitutional positive no acute distress, positive cooperative - Routine HEENT Exam Head: Present: normocephalic, atraumatic Eye: Present: EOMI, PERRL, normal accommodation. Absent: conjunctival icterus, scleral injection - Routine Neck Exam Absent: lymphadenopathy, thyromegaly - Routine Chest/Breast/Axilla Exam Axillae: Absent: lymphadenopathy - Routine Respiratory Exam Present: Clear to auscultation bilaterally. Absent: wheezes - Routine Cardiovascular Exam Present: RRR, S1, S2. Absent: murmur, gallop, rubs - Routine Abdominal Exam Present: soft. Absent: tenderness, distended, organomegaly - Routine Extremities Exam Absent: edema - Routine Neurological Exam Present: alert, oriented X3, CN II-XII intact. Absent: sensory deficit, motor deficit - Routine Psychiatric Exam Present: normal affect Results - Labs Laboratory Last Values WBC 6.3 X10^3/uL (4.5-11.0) 10/26/20 10:03 RBC 4.77 X10^6/uL (4.0-5.2) 10/26/20 10:03 Hgb 13.3 g/dL (12.0-16.0) 10/26/20 10:03 Hct 40.0 % (36-46) 10/26/20 10:03 MCV 84.0 fL (80-100) 10/26/20 10:03 MCH 27.8 PG (26-34) 10/26/20 10:03 MCHC 33.2 % (30-36) 10/26/20 10:03 RDW 21.5 % (11.6-14.8) H 10/26/20 10:03 Plt Count 211 X10^3/uL (150-400) 10/26/20 10:03 Neut % (Auto) 51.4 % (50-75) 10/26/20 10:03 Lymph % (Auto) 36.5 % (25-40) 10/26/20 10:03 [place] % (Auto) 8.2 % (3-14) 10/26/20 10:03 Eos % (Auto) 3.1 % (2-4) 10/26/20 10:03 Baso % (Auto) 0.8 % (0-2) 10/26/20 10:03 Neut # (Auto) 3300 /uL (0723-3856) 10/26/20 10:03 Lymph # (Auto) 2300 /uL (1612-7837) 10/26/20 10:03 [place] # (Auto) 500 /uL (0-900) 10/26/20 10:03 Eos # (Auto) 200 /uL (0-450) 10/26/20 10:03 Baso # (Auto) 100 /uL (0-100) 10/26/20 10:03 RBC Morphology Not Reportable 10/26/20 10:03 Poikilocytosis 1+ H 10/26/20 10:03 Anisocytosis 2+ H 10/26/20 10:03 Sodium 136 mmol/L (137-145) L 10/26/20 10:03 Sodium 138 mmol/L (137-145) 10/26/20 10:03 Potassium 4.5 mmol/L (3.4-5.1) 10/26/20 10:03 Potassium 4.9 mmol/L (3.4-5.1) 10/26/20 10:03 Chloride 103 mmol/L (98-107) 10/26/20 10:03 Chloride 104 mmol/L (98-107) 10/26/20 10:03 Carbon Dioxide 27 mmol/L (22-32) 10/26/20 10:03 Carbon Dioxide 29 mmol/L (22-32) 10/26/20 10:03 BUN 11 mg/dL (7-17) 10/26/20 10:03 BUN 12 mg/dL (7-17) 10/26/20 10:03 Creatinine 0.78 mg/dL (0.52-1.04) 10/26/20 10:03 Creatinine 0.81 mg/dL (0.52-1.04) 10/26/20 10:03 Estimated GFR > 60.0 mL/min (>60) 10/26/20 10:03 Estimated GFR > 60.0 mL/min (>60) 10/26/20 10:03 BUN/Creatinine Ratio 13.6 (6-22) 10/26/20 10:03 BUN/Creatinine Ratio 15.4 (6-22) 10/26/20 10:03 Glucose 180 mg/dL (80-110) H 10/26/20 10:03 Glucose 180 mg/dL (80-110) H 10/26/20 10:03 Hemoglobin A1c 6.4 % (4.0-6.0) H 10/26/20 10:03 Calcium 9.4 mg/dL (8.4-10.2) 10/26/20 10:03 Calcium 9.5 mg/dL (8.4-10.2) 10/26/20 10:03 Iron 99 ug/dL (37-170) 10/26/20 10:03 TIBC 338 ug/dL (265-497) 10/26/20 10:03 % Saturation 29 % (15-50) 10/26/20 10:03 Transferrin 256 mg/dL (206-381) 10/26/20 10:03 Ferritin 59 ng/mL (11-264) 10/26/20 10:03 Total Bilirubin 0.3 mg/dL (0.2-1.3) 10/26/20 10:03 Total Bilirubin 0.4 mg/dL (0.2-1.3) 10/26/20 10:03 AST 38 IU/L (14-36) H 10/26/20 10:03 AST 39 IU/L (14-36) H 10/26/20 10:03 ALT 23 IU/L (<35) 10/26/20 10:03 ALT 23 IU/L (<35) 10/26/20 10:03 Alkaline Phosphatase 78 U/L (38-126) 10/26/20 10:03 Alkaline Phosphatase 78 U/L (38-126) 10/26/20 10:03 Total Protein 7.4 g/dL (6.3-8.2) 10/26/20 10:03 Total Protein 7.8 g/dL (6.3-8.2) 10/26/20 10:03 Albumin 4.3 g/dL (3.5-5.0) 10/26/20 10:03 Albumin 4.4 g/dL (3.5-5.0) 10/26/20 10:03 Globulin 3.1 g/dL (1.7-4.1) 10/26/20 10:03 Globulin 3.4 g/dL (1.7-4.1) 10/26/20 10:03 Albumin/Globulin Ratio 1.3 (1.0-2.8) 10/26/20 10:03 Albumin/Globulin Ratio 1.4 (1.0-2.8) 10/26/20 10:03 Triglycerides 170 mg/dL (35-150) H 10/26/20 10:03 Cholesterol 154 mg/dL (140-199) 10/26/20 10:03 LDL Cholesterol, Calc 79 mg/dL (<100) 10/26/20 10:03 VLDL Cholesterol 34 mg/dL (2-30) H 10/26/20 10:03 HDL Cholesterol 41 mg/dL (40-60) 10/26/20 10:03 Vitamin B12 336 pg/mL (239-931) 10/26/20 10:03 Vitamin B12 341 pg/mL (239-931) 10/26/20 10:03 25-OH Vitamin D Total 37.1 ng/mL (30.0-100.0) 10/26/20 10:03 Folate 8.6 ng/mL (2.76-20.0) 10/26/20 10:03 TSH 0.389 uIU/mL (0.47-4.68) L 10/26/20 10:03 - Imaging Additional studies: Procedures COLONOSCOPY (05/03/10) Closed [endoscopic] biopsy of large intestine (03/03/14) Other endoscopy of small intestine (03/03/14) Assessment and Plan (1) Iron (Fe) deficiency anemia Today I reviewed the lab results with the patient. Patient's hemoglobin and hematocrit level have returned back to normal. Iron studies showed that the ferritin is within the normal range as well as the iron saturation. I talked with the patient that at this point, I would recommend continued monitoring of the iron storage status and will initiate intravenous iron infusion on an as-needed basis. Patient currently is being followed by Dr. Flowers and will get blood work once every 3 months. Patient prefers to follow-up in that way and if the lab showed any evidence of iron deficiency, she then would like to come back for follow-up visit. Plan: F/u with Dr. Flowers RTC PRN for iron infusion
== END ==
PROVIDERS: Family Provider Family Medicine; PCP Family Medicine; Referring Provider Family Medicine; Visit Provider Internal Medicine Hematology & Oncology
DX: D50.9 Iron deficiency anemia, unspecified (principal); E53.8 Deficiency of other specified B group vitamins
CPT/HCPCS: 36415; 80053; 80061; 82306; 82607; 82728; 82746; 83036; 83540; 83550; 84443; 85025; 96365; 96366; 99214; J1756

== ENCOUNTER → 2020-11-08 12:31 | Outpatient (CLI) | payer MEDICARE, BC, OTHER, SELFPAY | PROVIDERS: Family Provider Family Medicine; PCP Family Medicine; Referring Provider Family Medicine; Visit Provider Family Medicine | DX: M85.851 Other specified disorders of bone density and structure, right thigh (principal); Z78.0 Asymptomatic menopausal state; E07.9 Disorder of thyroid, unspecified; E11.9 Type 2 diabetes mellitus without complications | CPT/HCPCS: 77080 ==

== ENCOUNTER → 2020-11-09 09:43 | Outpatient (CLI) | payer MEDICARE, BC, OTHER, SELFPAY ==
--- NOTE | 2020-11-09 11:35 | DIET.PN ---
Dietary Progress Note Assessment: Ms. Escamilla was seen for DSME 6 mo follow up. She reports improved appetite and energy. Her A1c has come down and Ferritin levels are up. She continues to experience occasional GI discomfort w/ vomiting related to her gastroparesis, but feels this is improving. She has been able to tolerate more foods and is learning appropriate portion sizes. She has not been able to exercise in the last month due to a foot infection which has resolved. HT: 67in WT: 202lb UBW: 220lb BMI: 31.6 Labs: A1c: 6.4 Ferritin: 59 Nutrition Diagnosis: Altered nutrition related laboratory values related to impaired glucose metabolism, lack of previous exposure to nutrition information as evidenced by pt report, diagnosis of diabetes, previous diet high in refined carbohydrates. Interventions: 1. Reviewed current intake. Recommended continuing to keep a list of food intolerances. 2. Discussed importance of exercise for continued glucose control. Monitoring/Evaluations: No f/u at this time. Patient with contact with any concerns or changes in laboratory results.
== END ==
PROVIDERS: Family Provider Family Medicine; PCP Family Medicine; Referring Provider Family Medicine; Visit Provider Family Medicine
DX: E11.43 Type 2 diabetes mellitus with diabetic autonomic (poly)neuropathy (principal); K31.84 Gastroparesis; E66.9 Obesity, unspecified; Z68.31 Body mass index [BMI] 31.0-31.9, adult; Z71.3 Dietary counseling and surveillance
CPT/HCPCS: G0109

== ENCOUNTER → 2021-01-31 08:50 | Outpatient (CLI) | payer MEDICARE, BC, OTHER, SELFPAY ==
[2021-01-31 10:11] LABS: Add Manual Diff / Slide Review NO; Basophils Absolute Auto 0 /uL (0-100); Basophils Percent Auto 0.7 % (0-2); Eosinophils Absolute Auto 200 /uL (0-450); Eosinophils Percent Auto 3.4 % (2-4); Hematocrit 41.1 % (36-46); Lymphocytes Absolute Auto 2800 /uL (1100-4500); Lymphocytes Percent Auto 41.2 % (25-40); Mean Corpuscular HGB Conc 34.2 % (30-36); Mean Corpuscular Hemoglobin 30.4 PG (26-34); Mean Corpuscular Volume 89.1 fL (80-100); Monocytes Absolute Auto 600 /uL (0-900); Monocytes Percent Auto 8.4 % (3-14); Neutrophils Absolute Auto 3100 /uL (1500-7000); Neutrophils Percent Auto 46.3 % (50-75); Platelet Count 272 X10^3/uL (150-400); Red Blood Cell Count 4.61 X10^6/uL (4.0-5.2); Red Cell Distribution Width 14.2 % (11.6-14.8); White Blood Cell Count 6.7 X10^3/uL (4.5-11.0)
[2021-01-31 10:17] LABS: Hemoglobin A1C% w Est Avg Glu 6.5 % (4.0-6.0)
[2021-01-31 10:31] LABS: Alanine Aminotransferase 25 IU/L (<35); Albumin 4.1 g/dL (3.5-5.0); Albumin Globulin Ratio 1.5 (1.0-2.8); Alkaline Phosphatase 72 U/L (38-126); Aspartate Aminotransferase 39 IU/L (14-36); BUN Creatinine Ratio 14.5 (6-22); Bilirubin Total 0.6 mg/dL (0.2-1.3); Blood Urea Nitrogen 11 mg/dL (7-17); Calcium 9.3 mg/dL (8.4-10.2); Carbon Dioxide 26 mmol/L (22-32); Chloride 103 mmol/L (98-107); Cholesterol 111 mg/dL (140-199); Estimated Glomerular Filt Rate > 60.0 mL/min (>60); Globulin 2.8 g/dL (1.7-4.1); Glucose 161 mg/dL (80-110); HDL Cholesterol 27 mg/dL (40-60); LDL Cholesterol Calculated 60 mg/dL (<100); Sodium 139 mmol/L (137-145); Total Protein 6.9 g/dL (6.3-8.2); Triglycerides 120 mg/dL (35-150)
[2021-01-31 11:34] LABS: Ferritin 40 ng/mL (11-264); HEMOLYSIS < 15 (0-50)
[2021-01-31 11:35] LABS: Free T4, Direct Thyroxine 2.01 ng/dL (0.78-2.19)
[2021-01-31 11:48] LABS: Vitamin B12 636 pg/mL (239-931)
[2021-01-31 11:49] LABS: Thyroid Stimulating Hormone 0.197 uIU/mL (0.47-4.68)
== END ==
PROVIDERS: Family Provider Family Medicine; PCP Family Medicine; Referring Provider Family Medicine; Visit Provider Family Medicine
DX: E11.9 Type 2 diabetes mellitus without complications (principal)
CPT/HCPCS: 36415; 80053; 80061; 82607; 82728; 83036; 84439; 84443; 85025

== ENCOUNTER → 2021-05-04 08:37 | Outpatient (CLI) | payer MEDICARE, BC, OTHER, SELFPAY ==
[2021-05-04 09:49] LABS: Add Manual Diff / Slide Review NO; Basophils Absolute Auto 0 /uL (0-100); Basophils Percent Auto 0.8 % (0-2); Eosinophils Absolute Auto 200 /uL (0-450); Hematocrit 40.5 % (36-46); Hemoglobin 13.5 g/dL (12.0-16.0); Lymphocytes Absolute Auto 2300 /uL (1100-4500); Lymphocytes Percent Auto 41.2 % (25-40); Mean Corpuscular HGB Conc 33.3 % (30-36); Mean Corpuscular Hemoglobin 30.1 PG (26-34); Mean Corpuscular Volume 90.3 fL (80-100); Monocytes Absolute Auto 400 /uL (0-900); Monocytes Percent Auto 6.5 % (3-14); Neutrophils Absolute Auto 2700 /uL (1500-7000); Neutrophils Percent Auto 48.5 % (50-75); Platelet Count 219 X10^3/uL (150-400); Red Blood Cell Count 4.49 X10^6/uL (4.0-5.2); Red Cell Distribution Width 13.3 % (11.6-14.8); White Blood Cell Count 5.6 X10^3/uL (4.5-11.0)
[2021-05-04 10:17] LABS: Hemoglobin A1C% w Est Avg Glu 6.8 % (4.0-6.0)
[2021-05-04 10:18] LABS: Alanine Aminotransferase 32 IU/L (<35); Albumin Globulin Ratio 1.4 (1.0-2.8); Alkaline Phosphatase 66 U/L (38-126); Aspartate Aminotransferase 63 IU/L (14-36); BUN Creatinine Ratio 15.7 (6-22); Bilirubin Total 0.4 mg/dL (0.2-1.3); Blood Urea Nitrogen 11 mg/dL (7-17); Calcium 9.3 mg/dL (8.4-10.2); Carbon Dioxide 26 mmol/L (22-32); Chloride 107 mmol/L (98-107); Estimated Glomerular Filt Rate > 60.0 mL/min (>60); Globulin 2.9 g/dL (1.7-4.1); Glucose 174 mg/dL (80-110); HEMOLYSIS < 15 (0-50); Potassium 4.4 mmol/L (3.4-5.1); Sodium 140 mmol/L (137-145); Total Protein 6.9 g/dL (6.3-8.2)
[2021-05-04 10:48] LABS: Free T4, Direct Thyroxine 1.62 ng/dL (0.78-2.19)
[2021-05-04 10:56] LABS: Ferritin 21 ng/mL (11-264)
[2021-05-04 11:02] LABS: Thyroid Stimulating Hormone 0.575 uIU/mL (0.47-4.68)
[2021-05-04 11:10] LABS: Vitamin B12 342 pg/mL (239-931)
== END ==
PROVIDERS: Family Provider Family Medicine; PCP Family Medicine; Referring Provider Family Medicine; Visit Provider Family Medicine
DX: E78.5 Hyperlipidemia, unspecified (principal); D64.9 Anemia, unspecified; E03.9 Hypothyroidism, unspecified; E11.9 Type 2 diabetes mellitus without complications
CPT/HCPCS: 36415; 80053; 82607; 82728; 83036; 84439; 84443; 85025

== ENCOUNTER → 2021-08-15 09:43 | Outpatient (CLI) | payer MEDICARE, BC, OTHER, SELFPAY ==
--- NOTE | 2021-08-15 09:45 | DI.MG.S_ITS ---
BILATERAL DIGITAL SCREENING MAMMOGRAM 3D/2D WITH CAD: 08/15/2021 CLINICAL: Routine screening. Comparison is made to exams dated: 08/10/2020 mammogram, 08/04/2019 mammogram, and 07/10/2018 mammogram - [facility]. There are scattered fibroglandular elements in both breasts. Current study was also evaluated with a Computer Aided Detection (CAD) system. No significant masses, calcifications, or other findings are seen in either breast. There has been no significant interval change. IMPRESSION: NEGATIVE There is no mammographic evidence of malignancy. A 1 year screening mammogram is recommended. This exam was interpreted at Station ID: [id number]. NOTE: For mammograms, a report in lay terms will be sent to the patient. Approximately 15% of breast malignancies will not be visualized mammographically. In the management of a palpable breast mass, a negative mammogram must not discourage biopsy of a clinically suspicious lesion. Electronically Signed By: Thomas Bettencourt M.D., jr/cynthia:08/15/2021 10:39:11 letter sent: Normal Exam ACR BI-RADS Category 1: Negative 3341F
== END ==
PROVIDERS: Family Provider Family Medicine; PCP Family Medicine; Referring Provider Family Medicine; Visit Provider Family Medicine
DX: Z12.31 Encounter for screening mammogram for malignant neoplasm of breast (principal)
CPT/HCPCS: 77063; 77067

== ENCOUNTER → 2021-10-02 08:19 | Outpatient (CLI) | payer MEDICARE, BC, OTHER, SELFPAY ==
[2021-10-02 11:22] LABS: COVID19 -Nasal RAPID Negative (Negative)
== END ==
PROVIDERS: Family Provider Family Medicine; PCP Family Medicine; Visit Provider Nurse Practitioner Family
DX: Z20.822 Contact with and (suspected) exposure to COVID-19 (principal)
CPT/HCPCS: 87635; C9803

== ENCOUNTER 2021-10-03 11:52 | Day surgery (SDC) | payer MEDICARE, BC, OTHER, SELFPAY ==
--- NOTE | 2021-10-03 | PATH_ITS ---
[facility] Accession Number: [id number] . 01 Material submitted: . PART A: colon - ASCENDING COLON POLYP PART B: colon - RECTO-SIGMOID COLON POLYP . 02 Diagnosis: A. Ascending Colon Polyp: Tubular adenoma. . B. Rectosigmoid Colon Polyp: Portions of tubular adenoma x3. MRV 10/05/2021 0920 Local . 02 Electronically signed: . Tayler Ceja MD, Pathologist NPI- [id number] . 01 Gross description: . Part A: ASCENDING COLON POLYP: Received in formalin is 1 fragment(s) of prasad, soft tissue measuring 0.5 x 0.3 x 0.3 cm submitted entirely in 1 cassette(s) Part B: RECTO-SIGMOID COLON POLYP: Received in formalin are 3 fragment(s) of prasad, soft tissue measuring 0.6 x 0.5 x 0.4 cm to 0.3 x 0.3 x 0.1 cm submitted entirely in 1 cassette(s) /QBJ 10/04/2021 0302 Local . 02 Pathologist provided ICD-10: K63.5 . 02 CPT . 856324, 011101 Performed at: 01 [facility] [address], [place], [place] [id number] MD Dom Javed MD Phone: [phone] Performed at: 02 [facility] [address] [place], [place] [id number] MD Cherry Farmer MD Phone: [phone]
[2021-10-03 13:31] VITALS: BP 180/91; PULSE 95; RESP 16; TEMP 37.1; O2SAT 96; BMI 31.8
[2021-10-03] MEDS: SODIUM CHLORIDE 0.9% 1,000 ML 100 ML IV (13:46)
--- NOTE | 2021-10-03 14:19 | PM.HP.1 ---
History of Present Illness History of Present Illness Date Patient Seen: 10/03/21 Time Patient Seen: 14:19 Chief complaint: SDC Narrative: I reviewed my note from July 31. No changes. Patient History Medical History Diabetes Gastroparesis Hypothyroidism Kidney stones Neuropathy Surgical History H/O: hysterectomy Family & Social History Social History: household members none Tobacco & Substance use: Smoking Status Never smoker alcohol intake frequency holiday/special occasion Substance Use Type does not use Meds Home Medications and Allergies Home Medications Medication Instructions Recorded Confirmed Type Vitamin B-12 2,000 units SUBCUT QMONTH 08/04/20 10/03/21 History aspirin 81 mg tablet,delayed 81 mg PO DAILY 08/04/20 10/03/21 History release cholecalciferol (vitamin D3) 25 1,000 unit DAILY 08/04/20 10/03/21 History mcg (1,000 unit) capsule (Vitamin D3) glipizide 5 mg tablet, extended 5 mg PO DAILY 08/04/20 10/03/21 History release 24 hr levothyroxine 100 mcg tablet 100 mcg PO DAILY 08/04/20 10/03/21 History lisinopril 5 mg tablet 5 mg PO DAILY 08/04/20 10/03/21 History metformin 500 mg tablet 500 mg PO BID 08/04/20 10/03/21 History pantoprazole 40 mg tablet,delayed 40 mg PO DAILY 08/04/20 10/03/21 History release simvastatin 10 mg tablet 10 mg PO DAILY 08/04/20 10/03/21 History Allergies Allergy/AdvReac Type Severity Reaction Status Date / Time iron AdvReac ITCHING Verified 10/03/21 13:23 Review of Systems Review of Systems ROS: Yes All systems reviewed with the patient and are negative except as otherwise documented Exam Vital Signs (past 8 hours): - 10/03/21 13:31 Temperature 98.7 F Pulse Rate 95 H Respiratory Rate 16 Blood Pressure 180/91 H Pulse Oximetry 96 Oxygen Delivery Method Room Air Const General: cooperative and comfortable Orientation: alert HENMT Head: normocephalic Ears: external ears normal Nose: external nose normal Face and sinus: normal facial exam Mouth: oral mucosae normal Eyes General: appearance normal, both eyes and all related structures Neck Neck: normal visual inspection Chest Chest: normal inspection of the chest Resp Effort & Inspection: normal respiratory effort Cardio Rate: regular rate GI Inspection: normal to inspection Skin General: no rashes or lesions noted and No jaundice Neuro General: patient alert and moves all extremities Cognition: normal cognition Speech: speech normal Extrem General: no pedal edema Psych Appearance: grossly normal Assessment & Plan Assessment & Plan narrative: Personal history of unknown histology colon polyps. Colonoscopy is planned for today. Time Spent With Patient Critical Care time: I spent a total of [] minutes of critical care time on this patient's care today; this time is exclusive of procedural time.
--- NOTE | 2021-10-03 14:21 | PM.PREOP ---
Pre-operative Note COVID-19 COVID-19 status: Negative Result date/Date tested (Pos, Neg/Pending): 10/02/21 Interval Note History & Physical reviewed/Exam performed by Physician: Yes Changes to H&P: No ASA Class (for procedural sedation): II
[2021-10-03 15:45] VITALS: BP 137/65; PULSE 80; RESP 15; TEMP 36.3; O2SAT 100
--- NOTE | 2021-10-03 15:48 | PM.OP.COLON ---
Operative Date/Time/Diagnoses Date of procedure: 10/03/21 Time of procedure: 15:48 Pre-op diagnosis: Polyp history Post-op diagnosis: same Procedure & Clinicians Study performed: Colonoscopy with hot snare polypectomy Same procedure as scheduled: Yes Indications: Polyp history Surgeon: Darrick Hammond Procedure Notes SCOAP/Timeout: Done Procedure in detail: After the risks and benefits were explained, written and verbal informed consent was obtained. The patient was brought into the procedure room and placed into the left lateral decubitus position. Please see nurse special service representative notes for sedation details. Digital rectal examination was accomplished. The scope was introduced into the patient and advanced under direct visualization to the cecum as identified by the appendiceal orifice and ileocecal valve. The scope was slowly withdrawn to carefully examine the mucosa for any defects or lesions. Comprehensive imaging was accomplished throughout the rectum including the dentate line. The colon was decompressed, the scope was then removed from the patient who tolerated the procedure well. Bowel prep adequate Initial efforts with the adult colonoscope were unsuccessful at the rectosigmoid junction. We swapped out for a pediatric scope and achieve cecal intubation. Prolonged procedure time secondary to navigation challenges and complex polypectomy. Twenty-two modifier is requested. Scope withdrawal time: 23 minutes Sedation minutes: 44 Complications: none Impression: Medication was very difficult through the rectosigmoid. We failed with the adult scope and swapped out for the pediatric scope. We were able to successfully arrive in cecum. There was an approximately 7 mm sessile polyp in the ascending colon removed with hot snare. There was an approximately 15 mm sessile polyp in the rectosigmoid junction at about 14 cm from the anal verge. This was removed with hot snare. After our initial excision there was a small fragment on the left aspect of this polyp which was removed with a 2nd snare application. I then ablated a very small focus of possible residual adenomatous the mucosa on the proximal right aspect of this site. After all of our efforts all of the polyp appeared to have been excised and/or ablated. Endoscopic diagnosis 1. Colon polyps 2. Challenging navigation Post-procedure Plan for aftercare: 1. Await histopathology 2. Repeat flexible sigmoidoscopy 6 months time to ensure the rectosigmoid polyp has been completely excised 3. Otherwise repeat colonoscopy 3 years. 4. Hold off on resuming NSAIDs for another 5-7 days. Disposition: PACU
[2021-10-03 15:50] VITALS: PULSE 76; RESP 16; O2SAT 98
[2021-10-03 15:55] VITALS: BP 126/92; PULSE 83; RESP 16; O2SAT 94
[2021-10-03 16:15] VITALS: BP 180/91; PULSE 88; RESP 18; TEMP 36.9; O2SAT 99
== END 2021-10-03 16:25 | disposition home or self-care (01) ==
PROVIDERS: Family Provider Family Medicine; PCP Family Medicine; Referring Provider Internal Medicine Gastroenterology; Visit Provider Internal Medicine Gastroenterology
PROC: 0DJD8ZZ Inspection of Lower Intestinal Tract, Via Natural or Artificial Opening Endoscopic (ICD-10-PCS; CPT 45378; principal; 2021-10-03 14:00)
DX: Z12.11 Encounter for screening for malignant neoplasm of colon (principal); Z86.010 Personal history of colon polyps; E11.9 Type 2 diabetes mellitus without complications; K31.84 Gastroparesis; Z79.84 Long term (current) use of oral hypoglycemic drugs; D12.2 Benign neoplasm of ascending colon; D12.5 Benign neoplasm of sigmoid colon
CPT/HCPCS: 45385; J2704

== ENCOUNTER 2022-02-22 11:37 | Emergency (ER) | payer MEDICARE, BC, OTHER, SELFPAY ==
[2022-02-22 11:49] VITALS: BP 225/100; PULSE 108; RESP 16; TEMP 36.1; O2SAT 96; BMI 31.0
[2022-02-22 12:10] LABS: Ictotest Urine Negative (Negative)
--- NOTE | 2022-02-22 12:16 | DI.CT.S_ITS ---
PROCEDURE: CT KIDNEY URETER BLADDER (KUB) INDICATIONS: hematuria, hx nephrolithiasis, rt flank pain, hx hysterectomy TECHNIQUE: Axial sections were acquired from the lung bases to the pubic symphysis. Coronal and sagittal reformats were performed. For radiation dose reduction, the following was used: automated exposure control, adjustment of mA and/or kV according to patient size. COMPARISON: CT, ABDOMEN/PELVIS WITH CONTRAST, 01/15/2018, 9:00. FINDINGS: Image quality: Excellent. Lung bases: Unremarkable. Heart: Coronary artery calcifications. Small hiatal hernia. URINARY: Right Kidney: No stones or hydronephrosis. Right Ureter: No hydroureter. Left Kidney: Mild hydronephrosis. No additional kidney stones. Left Ureter: Obstructing calculus at the UVJ measuring at 0.4 cm, (4/43). Mild hydroureter. Bladder: Decompressed. Punctate calcification in the region of the urachus, (44). ABDOMEN: Liver: Unremarkable. Gallbladder: Unremarkable. Biliary ducts: Unremarkable. Pancreas: Unremarkable. Spleen: Unremarkable. Adrenal Glands: Unremarkable. Stomach and Bowel: Stomach, small bowel loops, and colon are unremarkable. Peritoneum: No abnormal intraperitoneal fluid. No free air. Ventral Wall: No hernia. Abdominal Nodes: No enlarged retroperitoneal or mesenteric lymph nodes. Vessels: Aorta and inferior vena cava are normal in size. Circumferential calcified atherosclerotic plaque. Surgical clips in the region of the left external iliac artery. PELVIS: Pelvic Organs: Uterus is absent. Pelvic Nodes: Unremarkable. Miscellaneous: No inguinal hernias are seen. Bones: No suspicious lesion. Multilevel DDD. No compression fracture. IMPRESSION: 1. Obstructing calculus at the left UVJ measuring 0.4 cm. Mild hydronephrosis. 2. No additional kidney stones. 3. Punctate calcification at the urachus. This could represent a bladder stone. It is difficult to exclude calcified neoplasm. The bladder is mostly decompressed limiting evaluation of the bladder. Consider cystoscopy for further evaluation. Dictated by: Arcenio Henriquez M.D. on 02/22/2022 at 12:54 Approved by: Arcenio Henriquez M.D. on 02/22/2022 at 13:03
--- NOTE | 2022-02-22 12:21 | ED_ITS ---
HPI - Female Genitourinary <Cherry Gao [facility] - Last Filed: 02/22/22 18:26> General Chief complaint: Urogenital-Female Stated complaint: thinks kidney stone Time Seen by Provider: 02/22/22 12:03 Source: patient Mode of arrival: Ambulatory History of Present Illness HPI Narrative: This is a 71-year-old female with history of xld-pzhccyu-puvhcrfeh diabetes on metformin, hypertension and gastroparesis who presents to the emergency department complaining of right-sided flank pain that started four nights ago. Patient states that she initially had urinary urgency and frequency, she has had some urinary retention and was taking skeh-rbg-[id number] azo to help with her symptoms, states her urinary symptoms improved 2 days ago and her right-sided flank pain has gotten worse. She states she also has nausea, has not had any vomiting, but did have chills last night. She has a history of a hysterectomy but denies any other surgical abdominal history. She states that she has a history of kidney stone on the right in the past, did not require any stenting. Patient has an allergy to iron and she has iron deficiency anemia. Primary care providers Dr. Flowers, she states she took naproxen 1 hour prior to arrival and her pain is improving. She states that she still has nausea and she is anxious. She states that she did take her lisinopril today. Related Data Home Medications Medication Instructions Recorded Confirmed Vitamin B-12 2,000 units SUBCUT QMONTH 08/04/20 10/03/21 aspirin 81 mg tablet,delayed 81 mg PO DAILY 08/04/20 10/03/21 release cholecalciferol (vitamin D3) 25 1,000 unit DAILY 08/04/20 10/03/21 mcg (1,000 unit) capsule (Vitamin D3) glipizide 5 mg tablet, extended 5 mg PO DAILY 08/04/20 10/03/21 release 24 hr levothyroxine 100 mcg tablet 100 mcg PO DAILY 08/04/20 10/03/21 lisinopril 5 mg tablet 5 mg PO DAILY 08/04/20 10/03/21 metformin 500 mg tablet 500 mg PO BID 08/04/20 10/03/21 pantoprazole 40 mg tablet,delayed 40 mg PO DAILY 08/04/20 10/03/21 release simvastatin 10 mg tablet 10 mg PO DAILY 08/04/20 10/03/21 Previous Rx's Medication Instructions Recorded hydrocodone 5 mg-acetaminophen 325 1 tab PO Q6-8H PRN #14 tab 02/22/22 mg tablet ketorolac 10 mg tablet 10 mg PO Q8H PRN #14 tab 02/22/22 ondansetron 4 mg disintegrating 4 mg PO Q8H PRN #10 tab 02/22/22 tablet sulfamethoxazole 800 1 tab PO BID 7 Days #14 tab 02/22/22 mg-trimethoprim 160 mg tablet (Bactrim DS) tamsulosin 0.4 mg capsule (Flomax) 0.4 mg PO DAILY 14 Days #14 cap 02/22/22 Allergies Allergy/AdvReac Type Severity Reaction Status Date / Time iron AdvReac ITCHING Verified 02/22/22 11:49 Review of Systems <BENJAMIN Carbajal - Last Filed: 02/22/22 18:26> Review of Systems Narrative: General: denies fever, states that she had chills last night denies any malaise, sweats, fatigue Head/Neck: denies headache, neck pain, dizziness Eyes: denies visual changes, eye pain Cardio: denies chest pain, palpitations, edema Respiratory: denies dyspnea, cough, orthopnea GI: denies abdominal pain, nausea, vomiting, or diarrhea : denies dysuria, hematuria, endorses urinary retention and some mild urinary urgency without frequency or incontinence MSK: denies joint pain, muscle weakness Skin: denies rash, itching, skin lesions or other Neuro: denies numbness, tingling Patient History <BENJAMIN Carbajal - Last Filed: 02/22/22 18:26> Medical History Diabetes Gastroparesis Hypothyroidism Kidney stones Neuropathy Surgical History H/O: hysterectomy alcohol intake frequency: holidays/special occasions only Substance Use Type: does not use Exam <BENJAMIN Carbajal - Last Filed: 02/22/22 18:26> Narrative Exam Narrative: Independently reviewed vitals signs and nursing notes. General: cooperative, anxious /nervous, in no acute distress, pleasant, good historian, well developed and well groomed Head: atraumatic, symmetrical facial expressions Neck: supple, atraumatic, without lymphadenopathy. Eyes: pupils equal round and reactive, EOMI, conjunctiva normal Nose: nares patent, no rhinorrhea Mouth/Throat: moist mucus membranes Cardiovascular: tachycardia, S1S2, no peripheral edema, warm extremities , no murmurs, radial pulses are 2+ Respiratory: normal effort, able to speak in complete sentences, no audible wheezing, stridor, or rales. No retractions or tachypnea. GI: abdomen soft, nontender to palpation, nondistended, no masses, no exquisite tenderness with exam, without guarding or rebound. right CVA tenderness to palpation MSK: moves all extremities, ambulatory w/steady gait, neurovascularly intact, no weakness Skin: brisk capillary refill, no rash, no erythema Neuro: normal speech and cognition, A&O x3, normal tone Psych: mental status is grossly normal, congruent mood, normal affect, pleasant and cooperative Initial Vital Signs Initial Vital Signs: Vital Signs Temperature 97.0 F L 02/22/22 11:49 Pulse Rate 108 H 02/22/22 11:49 Respiratory Rate 16 02/22/22 11:49 Blood Pressure 225/100 H 02/22/22 11:49 Pulse Oximetry 96 02/22/22 11:49 <Ramón Martin DO - Last Filed: 02/22/22 18:43> Initial Vital Signs Initial Vital Signs: Vital Signs Temperature 97.0 F L 02/22/22 11:49 Pulse Rate 108 H 02/22/22 11:49 Respiratory Rate 16 02/22/22 11:49 Blood Pressure 225/100 H 02/22/22 11:49 Pulse Oximetry 96 02/22/22 11:49 Scores <BENJAMIN Carbajal - Last Filed: 02/22/22 18:26> SOFA Platelets: >= 150 Bilirubin: < 1.2 mg/dL Hypotension: MAP >= 70 mmHg Melvin Coma Scale: 15 Renal: < 1.2 mg/dL Course <BENJAMIN Carbajal - Last Filed: 02/22/22 18:26> Orders Ordered: ED Orders 02/22/22 11:50 Ictotest Urine Stat Urine Culture Stat Urine Microscopic Stat 02/22/22 12:16 CT kidney ureter bladder (KUB) Stat 02/22/22 13:10 CBC Auto Diff [Complete Blood Count AUTO DIFF] Stat CMP [Comprehensive Metabolic Panel] Stat Lipase Stat Procalcitonin Stat 02/22/22 13:45 Consult to Urology Stat Discontinued Medications Acetaminophen (Acetaminophen 325 Mg Tablet) 975 mg PO NOW ONE Stop: 02/22/22 12:17 Last Admin: 02/22/22 13:24 Dose: 975 mg Documented by: ALDAIR Ceftriaxone Sodium 1,000 mg/ (Sodium Chloride) 100 mls @ 200 mls/hr IV NOW ONE Stop: 02/22/22 13:19 Last Infusion: 02/22/22 14:10 Dose: 0 mls/hr Documented by: Admin: 02/22/22 13:27 Dose: 200 mls/hr Documented by: ALDAIR Ketorolac Tromethamine (Ketorolac 30 Mg/Ml Vial) 15 mg IV NOW ONE Stop: 02/22/22 14:08 Last Admin: 02/22/22 14:15 Dose: 15 mg Documented by: BRITTNEY Ondansetron HCl (Ondansetron 4 Mg Odt) 4 mg SL NOW ONE Stop: 02/22/22 12:17 Last Admin: 02/22/22 13:25 Dose: 4 mg Documented by: ALDAIR Tamsulosin HCl (Tamsulosin 0.4 Mg Capsule) 0.4 mg PO NOW ONE Stop: 02/22/22 13:14 Last Admin: 02/22/22 13:25 Dose: 0.4 mg Documented by: WILLYLOR Trimethoprim/Sulfamethoxazole (Trimeth/Sulfa 160/800 (Ds) Tablet) 1 tab PO NOW ONE Stop: 02/22/22 12:31 Last Admin: 02/22/22 13:50 Dose: Not Given Documented by: ATAYLOR Trimethoprim/Sulfamethoxazole (Trimeth/Sulfa 160/800 (Ds) Tablet) 1 tab PO NOW ONE Stop: 02/22/22 14:04 Last Admin: 02/22/22 14:16 Dose: 1 tab Documented by: BRITTNEY Vital Signs Vital signs: Vital Signs - 8 hr 02/22/22 11:49 02/22/22 13:27 02/22/22 14:56 Temperature 97.0 F L Pulse Rate 108 H 77 81 Respiratory Rate 16 16 16 Blood Pressure 225/100 H 190/85 H 158/73 H Pulse Oximetry 96 98 98 <Ramón Martin, DO - Last Filed: 02/22/22 18:43> Orders Ordered: ED Orders 02/22/22 11:50 Ictotest Urine Stat Urine Culture Stat Urine Microscopic Stat 02/22/22 12:16 CT kidney ureter bladder (KUB) Stat 02/22/22 13:10 CBC Auto Diff [Complete Blood Count AUTO DIFF] Stat CMP [Comprehensive Metabolic Panel] Stat Lipase Stat Procalcitonin Stat 02/22/22 13:45 Consult to Urology Stat Discontinued Medications Acetaminophen (Acetaminophen 325 Mg Tablet) 975 mg PO NOW ONE Stop: 02/22/22 12:17 Last Admin: 02/22/22 13:24 Dose: 975 mg Documented by: ALDAIR Ceftriaxone Sodium 1,000 mg/ (Sodium Chloride) 100 mls @ 200 mls/hr IV NOW ONE Stop: 02/22/22 13:19 Last Infusion: 02/22/22 14:10 Dose: 0 mls/hr Documented by: Admin: 02/22/22 13:27 Dose: 200 mls/hr Documented by: ALDAIR Ketorolac Tromethamine (Ketorolac 30 Mg/Ml Vial) 15 mg IV NOW ONE Stop: 02/22/22 14:08 Last Admin: 02/22/22 14:15 Dose: 15 mg Documented by: BRITTNEY Ondansetron HCl (Ondansetron 4 Mg Odt) 4 mg SL NOW ONE Stop: 02/22/22 12:17 Last Admin: 02/22/22 13:25 Dose: 4 mg Documented by: ALDAIR Tamsulosin HCl (Tamsulosin 0.4 Mg Capsule) 0.4 mg PO NOW ONE Stop: 02/22/22 13:14 Last Admin: 02/22/22 13:25 Dose: 0.4 mg Documented by: ATAYLMARILU Trimethoprim/Sulfamethoxazole (Trimeth/Sulfa 160/800 (Ds) Tablet) 1 tab PO NOW ONE Stop: 02/22/22 12:31 Last Admin: 02/22/22 13:50 Dose: Not Given Documented by: ATAYLOR Trimethoprim/Sulfamethoxazole (Trimeth/Sulfa 160/800 (Ds) Tablet) 1 tab PO NOW ONE Stop: 02/22/22 14:04 Last Admin: 02/22/22 14:16 Dose: 1 tab Documented by: BTONER Vital Signs Vital signs: Vital Signs - 8 hr 02/22/22 11:49 02/22/22 13:27 02/22/22 14:56 Temperature 97.0 F L Pulse Rate 108 H 77 81 Respiratory Rate 16 16 16 Blood Pressure 225/100 H 190/85 H 158/73 H Pulse Oximetry 96 98 98 MDM - Female Genitourinary <BENJAMIN Carbajal - Last Filed: 02/22/22 18:26> Lab Data Result diagrams: 02/22/22 13:10 02/22/22 13:10 Labs: Lab Results 02/22/22 02/22/22 02/22/22 Range/Units 11:50 11:50 13:10 WBC 8.2 (4.5-11.0) X10^3/uL RBC 4.35 (4.0-5.2) X10^6/uL Hgb 12.8 (12.0-16.0) g/dL Hct 38.2 (36-46) % MCV 87.9 (80-100) fL MCH 29.4 (26-34) PG MCHC 33.5 (30-36) % RDW 14.1 (11.6-14.8) % Plt Count 253 (150-400) X10^3/uL Neut % (Auto) 76.2 H (50-75) % Lymph % (Auto) 14.6 L (25-40) % [place] % (Auto) 6.6 (3-14) % Eos % (Auto) 2.0 (2-4) % Baso % (Auto) 0.6 (0-2) % Neut # (Auto) 6300 (0280-7518) /uL Lymph # (Auto) 1200 (7534-5524) /uL [place] # (Auto) 500 (0-900) /uL Eos # (Auto) 200 (0-450) /uL Baso # (Auto) 0 (0-100) /uL Sodium (137-145) mmol/L Potassium (3.4-5.1) mmol/L Chloride (98-107) mmol/L Carbon Dioxide (22-32) mmol/L BUN (7-17) mg/dL Creatinine (0.52-1.04) mg/dL Estimated GFR (>60) mL/min BUN/Creatinine Ratio (6-22) Glucose (80-110) mg/dL Calcium (8.4-10.2) mg/dL Total Bilirubin (0.2-1.3) mg/dL AST (14-36) IU/L ALT (<35) IU/L Alkaline Phosphatase (38-126) U/L Total Protein (6.3-8.2) g/dL Albumin (3.5-5.0) g/dL Globulin (1.7-4.1) g/dL Albumin/Globulin Ratio (1.0-2.8) Lipase (23-300) U/L Procalcitonin (<0.5) ng/mL Ur Bilirubin Confirm Negative (Negative) Urine RBC 5-10/hpf H (0-5/HPF) Urine WBC 5-10/hpf H (0-5/HPF) Ur Squamous Epith Cells 1-5 /hpf (0-5/HPF) Amorphous Sediment 1+ Urine Bacteria Moderate (10-30) H (None) Ur Culture Indicated? Culture not indicate 02/22/22 02/22/22 Range/Units 13:10 13:10 WBC (4.5-11.0) X10^3/uL RBC (4.0-5.2) X10^6/uL Hgb (12.0-16.0) g/dL Hct (36-46) % MCV (80-100) fL MCH (26-34) PG MCHC (30-36) % RDW (11.6-14.8) % Plt Count (150-400) X10^3/uL Neut % (Auto) (50-75) % Lymph % (Auto) (25-40) % [place] % (Auto) (3-14) % Eos % (Auto) (2-4) % Baso % (Auto) (0-2) % Neut # (Auto) (5548-7638) /uL Lymph # (Auto) (7321-7043) /uL [place] # (Auto) (0-900) /uL Eos # (Auto) (0-450) /uL Baso # (Auto) (0-100) /uL Sodium 140 (137-145) mmol/L Potassium 3.9 (3.4-5.1) mmol/L Chloride 106 (98-107) mmol/L Carbon Dioxide 26 (22-32) mmol/L BUN 6 L (7-17) mg/dL Creatinine 0.86 (0.52-1.04) mg/dL Estimated GFR > 60 (>60) mL/min BUN/Creatinine Ratio 7.0 (6-22) Glucose 103 (80-110) mg/dL Calcium 8.6 (8.4-10.2) mg/dL Total Bilirubin 0.5 (0.2-1.3) mg/dL AST 29 (14-36) IU/L ALT 15 (<35) IU/L Alkaline Phosphatase 74 (38-126) U/L Total Protein 7.1 (6.3-8.2) g/dL Albumin 4.0 (3.5-5.0) g/dL Globulin 3.1 (1.7-4.1) g/dL Albumin/Globulin Ratio 1.3 (1.0-2.8) Lipase 75 (23-300) U/L Procalcitonin 0.06 (<0.5) ng/mL Ur Bilirubin Confirm (Negative) Urine RBC (0-5/HPF) Urine WBC (0-5/HPF) Ur Squamous Epith Cells (0-5/HPF) Amorphous Sediment Urine Bacteria (None) Ur Culture Indicated? Urine Dip Bedside Urine Glucose Negative Bedside Urine Bilirubin + 1 Bedside Urine Ketone - Negative Urine Specific [place] 1.015 Bedside Urine Occult Blood ++ Bedside Urine pH 6.0 Bedside Urine Protein - Negative Bedside Urine Urobilinogen 1+ 2mg Bedside Urine Nitrite + Positive Bedside Urine Leukocytes + [address] scan - abdomen/pelvis: Radiologist's Impression: PROCEDURE:? CT KIDNEY URETER BLADDER (KUB) ? INDICATIONS:? hematuria, hx nephrolithiasis, rt flank pain, hx hysterectomy ? TECHNIQUE:? Axial sections were acquired from the lung bases to the pubic symphysis.? Coronal and sagittal reformats were performed.? For radiation dose reduction, the following was used: ?automated exposure control, adjustment of mA and/or kV according to patient size.? ? COMPARISON:? CT, ABDOMEN/PELVIS WITH CONTRAST, 01/15/2018, 9:00. ? FINDINGS:? Image quality:? Excellent.? ? Lung bases:? Unremarkable.? ? Heart:? Coronary artery calcifications.? Small hiatal hernia. ? URINARY: Right Kidney: ? No stones or hydronephrosis.? Right Ureter:? No hydroureter.? ? Left Kidney:? Mild hydronephrosis.? No additional kidney stones.? Left Ureter:? Obstructing calculus at the UVJ measuring at 0.4 cm, ().? Mild hydroureter.? ? Bladder:? Decompressed.? Punctate calcification in the region of the urachus, (). ? ABDOMEN: Liver:? Unremarkable.? ? Gallbladder:? Unremarkable.? ? Biliary ducts:? Unremarkable.? ? Pancreas:? Unremarkable.? ? Spleen:? Unremarkable.? ? Adrenal Glands:? Unremarkable.? ? ? Stomach and Bowel:? Stomach, small bowel loops, and colon are unremarkable.? Peritoneum:? No abnormal intraperitoneal fluid.? No free air.? ? Ventral Wall: ? No hernia.? Abdominal Nodes:? No enlarged retroperitoneal or mesenteric lymph nodes.? Vessels:? Aorta and inferior vena cava are normal in size.? Circumferential calcified atherosclerotic plaque.? Surgical clips in the region of the left external iliac artery.? ? ? PELVIS: Pelvic Organs:? Uterus is absent.? ? Pelvic Nodes: Unremarkable. Miscellaneous: No inguinal hernias are seen. ? ? ? Bones:? No suspicious lesion.? Multilevel DDD.? No compression fracture. ? IMPRESSION: 1. Obstructing calculus at the left UVJ measuring 0.4 cm. Mild hydronephrosis. ? 2. No additional kidney stones. ? 3. Punctate calcification at the urachus.? This could represent a bladder stone.? It is difficult to exclude calcified neoplasm.? The bladder is mostly decompressed limiting evaluation of the bladder.? Consider cystoscopy for further evaluation. ? ? ? Dictated by: Arcenio Henriquez M.D. on 02/22/2022 at 12:54 ? ? Approved by: Arcenio Henriquez M.D. on 02/22/2022 at 13:03 ? ? ? ADDENDUM: The calcification at the urachus is unchanged compared to 2018. ? ? Dictated by: Arcenio Henriquez M.D. on 02/22/2022 at 13:08 ? ? Approved by: Arcenio Henriquez M.D. on 02/22/2022 at 13:08 ? MDM Narrative Medical decision making narrative: This is a 71-year-old female presents to the emergency department complaining of right-sided flank pain for at least 4 days. She has a history of kidney stones, had to have 1 removed as it was too large to pass in the past. She has a history of diabetes, non-insulin dependent, and gastroparesis. Surgical abdominal history includes a hysterectomy. Patient was found to have, she greer teria in her urine with urinary frequency, dysuria, and flank pain. Her procalcitonin is 0.06, lipase of 75, no elevation in liver enzymes, electrolytes are within normal ranges, no leukocytosis although there is a left shift, creatinine is 0.86, her baseline is 0.70. CT KUB shows obstructing calculus in the left UVJ measuring 0.4 cm with mild hydronephrosis, no additional kidney stones, punctate calcification at the urachus which could represent a bladder stone verses calcified neoplasm. Consultation with Dr. Gonzalez from Urology who states that patient will need surgical intervention and likely a stent. He is on-call and willing to see her if she returns to the emergency department. He has arranged an appointment for her on Saturday02/26/2022. She was given pain control in the emergency department, I gave her Toradol, Zofran, and ceftriaxone in the emergency department. Dr. Gonzalez recommend Bactrim, she was given a prescription of this for 7 days, b.i.d. dosing, ketorolac p.o. for pain, tamsulosin daily for 2 weeks, hydrocodone for breakthrough pain and Zofran for nausea. Patient was given strict return precautions for any worsening of her pain, chills, vomiting, lightheadedness, dizziness, feeling weak. Since patient is a diabetic, encourage close blood sugar monitoring, today her glucose is 103. She felt much better after the Toradol dose, was given information to follow-up with Dr. Gonzalez. No peritoneal signs on abdominal exam. Patient remains p.o. tolerant. Serial abdominal exam without increase in abdominal pain. Given history and exam, low suspicion for acute abdominal process, such as acute cholecystitis, pancreatitis, perforated viscus, atypical appendicitis, colitis, diverticulitis or torsion. Extensive conversation about ER return precautions and need for close follow-up. Patient is appropriate and amenable to discharge home. Vital signs are stable on repeat examination is unremarkable. Patient has been informed of results. Patient has been given strict return to ER precautions for any new or worsening symptoms. Patient understands to follow up closely with outpatient providers as instructed. Patient understands plan and agrees to discharge home. All questions and concerns answered at this time. <Ramón Martin DO - Last Filed: 02/22/22 18:43> Lab Data Labs: Lab Results 02/22/22 02/22/22 02/22/22 Range/Units 11:50 11:50 13:10 WBC 8.2 (4.5-11.0) X10^3/uL RBC 4.35 (4.0-5.2) X10^6/uL Hgb 12.8 (12.0-16.0) g/dL Hct 38.2 (36-46) % MCV 87.9 (80-100) fL MCH 29.4 (26-34) PG MCHC 33.5 (30-36) % RDW 14.1 (11.6-14.8) % Plt Count 253 (150-400) X10^3/uL Neut % (Auto) 76.2 H (50-75) % Lymph % (Auto) 14.6 L (25-40) % [place] % (Auto) 6.6 (3-14) % Eos % (Auto) 2.0 (2-4) % Baso % (Auto) 0.6 (0-2) % Neut # (Auto) 6300 (7476-5706) /uL Lymph # (Auto) 1200 (4818-1796) /uL [place] # (Auto) 500 (0-900) /uL Eos # (Auto) 200 (0-450) /uL Baso # (Auto) 0 (0-100) /uL Sodium (137-145) mmol/L Potassium (3.4-5.1) mmol/L Chloride (98-107) mmol/L Carbon Dioxide (22-32) mmol/L BUN (7-17) mg/dL Creatinine (0.52-1.04) mg/dL Estimated GFR (>60) mL/min BUN/Creatinine Ratio (6-22) Glucose (80-110) mg/dL Calcium (8.4-10.2) mg/dL Total Bilirubin (0.2-1.3) mg/dL AST (14-36) IU/L ALT (<35) IU/L Alkaline Phosphatase (38-126) U/L Total Protein (6.3-8.2) g/dL Albumin (3.5-5.0) g/dL Globulin (1.7-4.1) g/dL Albumin/Globulin Ratio (1.0-2.8) Lipase (23-300) U/L Procalcitonin (<0.5) ng/mL Ur Bilirubin Confirm Negative (Negative) Urine RBC 5-10/hpf H (0-5/HPF) Urine WBC 5-10/hpf H (0-5/HPF) Ur Squamous Epith Cells 1-5 /hpf (0-5/HPF) Amorphous Sediment 1+ Urine Bacteria Moderate (10-30) H (None) Ur Culture Indicated? Culture not indicate 02/22/22 02/22/22 Range/Units 13:10 13:10 WBC (4.5-11.0) X10^3/uL RBC (4.0-5.2) X10^6/uL Hgb (12.0-16.0) g/dL Hct (36-46) % MCV (80-100) fL MCH (26-34) PG MCHC (30-36) % RDW (11.6-14.8) % Plt Count (150-400) X10^3/uL Neut % (Auto) (50-75) % Lymph % (Auto) (25-40) % [place] % (Auto) (3-14) % Eos % (Auto) (2-4) % Baso % (Auto) (0-2) % Neut # (Auto) (1033-2863) /uL Lymph # (Auto) (1292-1043) /uL [place] # (Auto) (0-900) /uL Eos # (Auto) (0-450) /uL Baso # (Auto) (0-100) /uL Sodium 140 (137-145) mmol/L Potassium 3.9 (3.4-5.1) mmol/L Chloride 106 (98-107) mmol/L Carbon Dioxide 26 (22-32) mmol/L BUN 6 L (7-17) mg/dL Creatinine 0.86 (0.52-1.04) mg/dL Estimated GFR > 60 (>60) mL/min BUN/Creatinine Ratio 7.0 (6-22) Glucose 103 (80-110) mg/dL Calcium 8.6 (8.4-10.2) mg/dL Total Bilirubin 0.5 (0.2-1.3) mg/dL AST 29 (14-36) IU/L ALT 15 (<35) IU/L Alkaline Phosphatase 74 (38-126) U/L Total Protein 7.1 (6.3-8.2) g/dL Albumin 4.0 (3.5-5.0) g/dL Globulin 3.1 (1.7-4.1) g/dL Albumin/Globulin Ratio 1.3 (1.0-2.8) Lipase 75 (23-300) U/L Procalcitonin 0.06 (<0.5) ng/mL Ur Bilirubin Confirm (Negative) Urine RBC (0-5/HPF) Urine WBC (0-5/HPF) Ur Squamous Epith Cells (0-5/HPF) Amorphous Sediment Urine Bacteria (None) Ur Culture Indicated? Urine Dip Bedside Urine Glucose Negative Bedside Urine Bilirubin + 1 Bedside Urine Ketone - Negative Urine Specific [place] 1.015 Bedside Urine Occult Blood ++ Bedside Urine pH 6.0 Bedside Urine Protein - Negative Bedside Urine Urobilinogen 1+ 2mg Bedside Urine Nitrite + Positive Bedside Urine Leukocytes + 70 Esterase Discharge Plan Departure Patient Disposition: Home Clinical Impression: Complicated urinary tract infection, Calculus of ureterovesical junction (UVJ) Instructions: Kidney Stones -- Adult, DI for Kidney Infection, DI for Urinary Tract Infection (UTI) Activity Restrictions/Additional Instructions: *You have been diagnosed with a 0.4 cm stone in the ureterovesical junction of your left kidney, a complicated urinary tract infection. Please stay hydrated, take Zofran every 7 hours as needed for nausea, take Toradol every 6 hours starting tomorrow with food and water for pain, take Flomax daily, Bactrim twice a day for the next 7 days, and hydrocodone as needed for breakthrough pain. Please take your other medications as prescribed. If you have any worsening, please return to the emergency department. If your feeling lightheaded, dizzy, started vomiting, if your pain is exceptional please return to the emergency department. You may need a stent emergently, Dr. Gonzalez is willing to see you for this. He is on-call [facility], and he will arrange to have you seen in his office Saturday. Thank you for trusting us with your care, please do not hesitate to return if you have any worsening. I hope you feel better soon. This will likely need a procedure to get better, if your pain is out of control, it means that you need help. *What to do: *Please continue to take your regular medications as directed. [x ] New medication prescriptions sent to your pharmacy: [ [facility]] [ ] New medication written as a paper prescription [ ] No new medications given *Please follow up with your primary care provider in 2-3 days, call for an appointment. Let them know you were seen in the Emergency Department and that we asked that you be seen for follow-up. We will electronically transmit a record of today's note if your PCP is in our system *If you do not have a primary care provider please contact [phone] to establish care with one of the [facility] primary care providers. *Return to Emergency Department if you should have any new, worsening or concerning symptoms, such as [fever greater than 101F, chills, worsening pain, persistent vomiting or other bothersome symptoms] Prescriptions: New sulfamethoxazole-trimethoprim [Bactrim DS] 800-160 mg tablet 1 tab PO BID 7 Days Qty: 14 0RF ondansetron 4 mg tablet,disintegrating 4 mg PO Q8H PRN (Reason: nausea and vomiting) Qty: 10 0RF ketorolac 10 mg tablet 10 mg PO Q8H PRN (Reason: pain) Qty: 14 0RF Rx Instructions: with food and water hydrocodone-acetaminophen 5-325 mg tablet 1 tab PO Q6-8H PRN (Reason: pain) Qty: 14 0RF tamsulosin [Flomax] 0.4 mg capsule 0.4 mg PO DAILY 14 Days Qty: 14 0RF No Action metformin 500 mg Tablet 500 mg PO BID 0RF simvastatin 10 mg Tablet 10 mg PO DAILY 0RF glipizide 5 mg Tablet Extended Release 24hr 5 mg PO DAILY 0RF aspirin 81 mg Tablet,Delayed Release (Dr/Ec) 81 mg PO DAILY 0RF levothyroxine 100 mcg Tablet 100 mcg PO DAILY 0RF pantoprazole 40 mg Tablet,Delayed Release (Dr/Ec) 40 mg PO DAILY 0RF lisinopril 5 mg Tablet 5 mg PO DAILY 0RF cholecalciferol (vitamin D3) [Vitamin D3] 25 mcg (1,000 unit) Capsule 1,000 unit DAILY 0RF Vitamin B-12 2,000 units 2,000 units SUBCUT QMONTH 0RF Referrals: Mine Flowers MD [Primary Care Provider] - Sid Gonzalez MD [Non-Staff] - As soon as possible <Ramón aMrtin DO - Last Filed: 02/22/22 18:43> Cosign ED Attending Cosignature Attestation: Dr Martin Co-Sign Statement: I was available for consultation during this patient's emergency department visit. This chart is signed by myself for administrative purposes only. I did not have direct contact with this patient during this visit. They were seen independently by the APC.
[2022-02-22 12:23] LABS: Amorphous Sediment Urine 1+; Bacteria Urine Moderate (10-30); RBC Urine 5-10/HPF (0-5/HPF); Squamous Epithelial Cell Urine 1-5 /HPF (0-5/HPF); WBC Urine 5-10/HPF (0-5/HPF)
[2022-02-22] MEDS: ACETAMINOPHEN 325 MG TABLET 975 MG PO (13:24)
[2022-02-22] MEDS: TAMSULOSIN 0.4 MG CAPSULE PO (13:25)
[2022-02-22] MEDS: ONDANSETRON 4 MG ODT SL (13:25)
[2022-02-22 13:27] VITALS: BP 190/85; PULSE 77; RESP 16; O2SAT 98
[2022-02-22] MEDS: cefTRIAXone 1,000 MG in SODIUM CHLORIDE 0.9% 100 ML 200 ML IV (13:27)
[2022-02-22 13:32] LABS: Add Manual Diff / Slide Review NO; Basophils Absolute Auto 0 /uL (0-100); Basophils Percent Auto 0.6 % (0-2); Eosinophils Absolute Auto 200 /uL (0-450); Hematocrit 38.2 % (36-46); Hemoglobin 12.8 g/dL (12.0-16.0); Lymphocytes Absolute Auto 1200 /uL (1100-4500); Lymphocytes Percent Auto 14.6 % (25-40); Mean Corpuscular HGB Conc 33.5 % (30-36); Mean Corpuscular Hemoglobin 29.4 PG (26-34); Mean Corpuscular Volume 87.9 fL (80-100); Monocytes Absolute Auto 500 /uL (0-900); Monocytes Percent Auto 6.6 % (3-14); Neutrophils Absolute Auto 6300 /uL (1500-7000); Neutrophils Percent Auto 76.2 % (50-75); Platelet Count 253 X10^3/uL (150-400); Red Blood Cell Count 4.35 X10^6/uL (4.0-5.2); Red Cell Distribution Width 14.1 % (11.6-14.8); White Blood Cell Count 8.2 X10^3/uL (4.5-11.0)
[2022-02-22 13:48] LABS: Alanine Aminotransferase 15 IU/L (<35); Albumin Globulin Ratio 1.3 (1.0-2.8); Alkaline Phosphatase 74 U/L (38-126); Aspartate Aminotransferase 29 IU/L (14-36); Bilirubin Total 0.5 mg/dL (0.2-1.3); Blood Urea Nitrogen 6 mg/dL (7-17); Calcium 8.6 mg/dL (8.4-10.2); Carbon Dioxide 26 mmol/L (22-32); Chloride 106 mmol/L (98-107); Estimated Glomerular Filt Rate > 60 mL/min (>60); Globulin 3.1 g/dL (1.7-4.1); Glucose 103 mg/dL (80-110); HEMOLYSIS < 15 (0-50); Lipase 75 U/L (23-300); Potassium 3.9 mmol/L (3.4-5.1); Sodium 140 mmol/L (137-145); Total Protein 7.1 g/dL (6.3-8.2)
[2022-02-22 14:04] LABS: Procalcitonin 0.06 ng/mL (<0.5)
[2022-02-22] MEDS: KETOROLAC 30 MG/ML VIAL 15 MG IV (14:15)
[2022-02-22] MEDS: TRIMETH/SULFA 160/800 (DS) TABLET 1 TAB PO (14:16)
[2022-02-22 14:56] VITALS: BP 158/73; PULSE 81; RESP 16; O2SAT 98
== END 2022-02-22 14:57 | disposition home or self-care (01) ==
PROVIDERS: Emergency Medicine; Emergency Provider Nurse Practitioner Critical Care Medicine; Family Provider Family Medicine; PCP Family Medicine
DX: N39.0 Urinary tract infection, site not specified (principal); N20.1 Calculus of ureter; Z87.442 Personal history of urinary calculi
CPT/HCPCS: 74176; 80053; 81003; 81015; 83690; 84145; 85025; 87086; 96365; 96375; 99284; J0696; J1885

== ENCOUNTER → 2022-05-09 09:00 | Outpatient (CLI) | payer MEDICARE, BC, OTHER, SELFPAY ==
[2022-05-09 11:12] LABS: Hematocrit 38.9 % (36-46); Hemoglobin 13.2 g/dL (12.0-16.0); Mean Corpuscular HGB Conc 33.9 % (30-36); Mean Corpuscular Hemoglobin 29.4 PG (26-34); Mean Corpuscular Volume 86.6 fL (80-100); Platelet Count 226 X10^3/uL (150-400); Red Blood Cell Count 4.49 X10^6/uL (4.0-5.2); Red Cell Distribution Width 13.8 % (11.6-14.8); White Blood Cell Count 6.3 X10^3/uL (4.5-11.0)
[2022-05-09 11:13] LABS: HEMOLYSIS < 15 (0-50)
[2022-05-09 11:26] LABS: Alanine Aminotransferase 16 IU/L (<35); Albumin 4.2 g/dL (3.5-5.0); Albumin Globulin Ratio 1.4 (1.0-2.8); Alkaline Phosphatase 67 U/L (38-126); Aspartate Aminotransferase 35 IU/L (14-36); BUN Creatinine Ratio 15.1 (6-22); Bilirubin Total 0.5 mg/dL (0.2-1.3); Blood Urea Nitrogen 11 mg/dL (7-17); Calcium 9.2 mg/dL (8.4-10.2); Carbon Dioxide 27 mmol/L (22-32); Chloride 103 mmol/L (98-107); Cholesterol 139 mg/dL (140-199); Estimated Glomerular Filt Rate > 60 mL/min (>60); Glucose 150 mg/dL (80-110); HDL Cholesterol 32 mg/dL (40-60); Iron 85 ug/dL (37-170); LDL Cholesterol Calculated 86 mg/dL (<100); Potassium 4.2 mmol/L (3.4-5.1); Sodium 138 mmol/L (137-145); Total Protein 7.2 g/dL (6.3-8.2); Triglycerides 105 mg/dL (35-150); VLDL Cholesterol Calculated 21 mg/dL (2-30)
[2022-05-09 12:07] LABS: TSH w/ Reflex to FT4 0.24 uIU/mL (0.47-4.68)
[2022-05-10 00:19] LABS: Vitamin B12 270 pg/mL (239-931)
[2022-05-10 03:20] LABS: Free T4, Direct Thyroxine 1.74 ng/dL (0.78-2.19)
[2022-05-10 03:58] LABS: Hemoglobin A1C% w Est Avg Glu 6.4 % (4.0-6.0)
== END ==
PROVIDERS: Family Provider Family Medicine; PCP Family Medicine; Referring Provider Family Medicine; Visit Provider Family Medicine
DX: E11.9 Type 2 diabetes mellitus without complications; E03.9 Hypothyroidism, unspecified; E53.8 Deficiency of other specified B group vitamins; E78.5 Hyperlipidemia, unspecified; D50.9 Iron deficiency anemia, unspecified
CPT/HCPCS: 36415; 80053; 80061; 82607; 83036; 83540; 84439; 84443; 85027

== ENCOUNTER 2022-06-22 10:00 | Outpatient (RCR) | payer MEDICARE, BC, OTHER, SELFPAY ==
--- NOTE | 2022-05-24 16:59 | PT.OIE ---
Current Diagnoses Other specified enthesopathies of unspecified lower limb, excluding foot (05/24/22) Difficulty in walking, not elsewhere classified (05/24/22) Weakness (05/24/22) Past Medical History (Last Updated 04/24/22 @ 12:57 by Tayler Miranda LPN) Diabetes Gastroparesis Hx of cervical cancer Hx of nephrolithotomy with removal of calculi Hypothyroidism Kidney stones Neuropathy Past Surgical History (Last Updated 04/24/22 @ 12:57 by Tayler Miranda LPN) H/O: hysterectomy Hx of breast biopsy Visit Care Team Role Provider Type Mine Flowers MD Attending Provider Physician Family Provider Primary Care Provider Referring Provider Specialty: Family Practice Address: [address] [place] [address] [place], [place], [facility] Email: [email or web address] Physical Therapy Initial Evaluation PT-OP-A Visit Information Start: 05/23/22 14:05 Freq: Status: Active Protocol: Document 05/24/22 13:51 SAK (Rec: 05/24/22 14:32 SAK [id number]) Out-Patient Physical Therapy Visit Information Visit Information Visit Type Initial Evaluation Visit Start Time 13:45 Visit Stop Time 14:40 Total Visit Minutes 55 Visit Number 1 Precautions Precautions DM Type II PT-OP-B Current Condition Start: 05/23/22 14:05 Freq: Status: Active Protocol: Document 05/24/22 13:51 SAK (Rec: 05/24/22 14:32 SAK [id number]) Current Condition History of Current Condition Onset Date 3 months Current Complaints bilateral hamstring pain History of Current Condition Reports acute onset, not sure what she did. Posterior thighs really hurt, seemed like it got a little better, then reinjured moving furniture, lives alone. At first did stretches and still does periodically, helped some . Takes Alleve occasionally, otherwise no treatment. No ice or heat. 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 Walks and gardens for exercise. Prior Treatments and Tests no imaging Future Testing and Treatments Planned sees doctor Jun 25. Treatment Goals Patient/Caregiver Goals Main goal is to be able to sit in car 30 min without pain, walk on stairs without pain. Prior Functional Status Baseline Function- ADL's Independent Baseline Function- Mobility Independent Baseline Function- Gait independent Baseline Function- Recreation/Hobbies garden and walk Current Functional Impairments (Reported) Functional Limitations- ADL's painful Functional Limitations- Mobility/Gait painful Functional Limitations- Recreation/ painful gardneing and walking Hobbies Personal Factors Other Personal Factors That May Effect neuropathy bilateral feet Therapy/Recovery PT-OP-C Subjective Start: 05/23/22 14:05 Freq: Status: Active Protocol: Document 05/24/22 13:51 [facility] (Rec: 05/28/22 16:58 [facility] [id number]) OP-PT Pain Assessment Location Bilateral Posterior Leg Intensity 5 Description Burning,Tender,Tightness Frequency Frequent PT-OP-G Mobility & Gait Start: 05/23/22 14:05 Freq: Status: Active Protocol: Document 05/24/22 13:51 [facility] (Rec: 05/28/22 16:58 [facility] [id number]) OP Mobility Evaluation Transfers Sit to Stand requires use of UE's Stair Climbing Evaluation Evaluation Level of Assist On Stairs Independent Technique/Endurance Stair Climbing Technique Step to Step Comments Stair Climbing Comments painful PT-OP-H Neuro Start: 05/23/22 14:05 Freq: Status: Active Protocol: Document 05/24/22 13:51 [facility] (Rec: 05/28/22 16:58 [facility] [id number]) Sensation Evaluation Gross Sensation Gross Sensation WNL PT-OP-J Posture/Palpation/Skin Start: 05/23/22 14:05 Freq: Status: Active Protocol: Document 05/24/22 13:51 [facility] (Rec: 05/28/22 16:58 [facility] [id number]) Posture Evaluation Position Standing Head/C-Spine Posture Forward Head T-Spine Posture Increased Kyphosis Hip Posture (L) Externally Rotated,(R) Externally Rotated Knee Posture (L) Genu Varus,(R) Genu Varus Ankle/Foot Posture (R) Forefoot Adducted,(L) Forefoot Eversion Palpation Assessment Location hamstring Palpation Findings Soft Tissue Tightness,Muscle Guarding,Tenderness Palpation Details bilateral PT-OP-K Range of Motion Start: 05/23/22 14:05 Freq: Status: Active Protocol: Document 05/24/22 13:51 [facility] (Rec: 05/28/22 16:58 [facility] [id number]) Lumbar Spine Range of Motion Lumbar Spine Active Comments FF limited by hamstring tightness and pain Hip Goniometric Range of Motion Hip chikis Flexion w/Knee Flexed 125 Straight Leg Raise 55 Extension 5 Abduction 35 Internal Rotation 20 External Rotation 45 Knee Goniometric Range of Motion Knee chikis Knee ROM WFL Yes Ankle and Foot Goniometric Range of Motion Ankle and Foot chikis Dorsiflexion with Knee Flexed 5 Dorsiflexion with Knee Extended 0 PT-OP-M Strength Start: 05/23/22 14:05 Freq: Status: Active Protocol: Document 05/24/22 13:51 [facility] (Rec: 05/28/22 16:58 [facility] [id number]) Trunk Strength Trunk Manual Muscle Testing Flexion 4- Good- Extension 4- Good- Core Stabilization decreased core stabilization ability Hip Strength Hip Manual Muscle Testing chikis Flexion (L2) 4 Good Extension (S1) 3+ Fair+ Abduction 4- Good- Adduction 4 Good External Rotation 4- Good- Internal Rotation 4 Good Knee Strength Knee Manual Muscle Testing chikis Flexion (S2) 4 Good Extension (L3) 5 Normal Comments painful resisted flexion Ankle/Foot Strength Ankle and Foot Manual Muscle Testing chikis Dorsiflexion (L4) 4+ Good+ Plantarflexion (S1) 4+ Good+ PT-OP-Q Treatments Start: 05/23/22 14:05 Freq: Status: Active Protocol: Document 05/24/22 13:51 [facility] (Rec: 05/28/22 16:58 [facility] [id number]) Self-Care/Home Management Treatment Education Patient Education Home Exercise Program,Pain Management PT-OP-R Modalities Start: 05/23/22 14:05 Freq: Status: Active Protocol: Document 05/24/22 13:51 [facility] (Rec: 05/28/22 16:58 [facility] [id number]) Hot Pack/Cold Pack Treatment Cold Pack Location bilateral hamstrings Patient Position Prone Treatment Duration (minutes) 10 Patient Tolerance Good PT-OP-T Assessment and Plan Start: 05/23/22 14:05 Freq: Status: Active Protocol: Document 05/24/22 13:51 [facility] (Rec: 05/24/22 14:32 [facility] [id number]) Physical Therapy Assessment Rehab Potential Rehabilitation Potential Good Evaluation Complexity Number of Personal Factors/Comorbidities 1-2 Number of Body Systems Impaired 3 Clinical Presentation at Evaluation Evolving Impairments Impairments Activity Tolerance,Gait,Pain Goals activity tolerance Impairment painful to sit 30 min, unable to ambulate on stairs without increased pain Snf Goal (LTG) Patient able to sit for 30-45 min, and ascend/descend stairs with min to no pain LTG Duration 08/26/22 lacking HEP Short Term Goal (STG) Patient to be instructed in progressive HEP for purposes of flexibility and strengthening bilateral LE's Bench Manager Goal (LTG) Patient to be independent and compliant with HEP for purposes of flexibility and strengthening bilateral LE's and demonstrate 5/5 muscle strength and ROM WNL LTG Duration 08/26/22 pain bilateral hamstrings Impairment 5/10 on pain scale Impairment Unable to garden or take walks as previously due to pain bilateral hamstrings Short Term Goal (STG) pain no greater than 3/10 with all usual activities STG Duration 06/28/22 Bench Manager Goal (LTG) pain no greater than 1/10 with all usual activities including gardening and walking LTG Duration 08/26/22 Assessment Summary Assessment Patient presents to PT with acute onset bilateral hamstring pain. Signs and symptoms consistent with hamstring strain though mechanism of injury uncertain. Patient has tightness in bilateral hamstrings, tenderness bilateral ischial tuberosities, painful resisted knee flexion. Would benefit from PT to help her decrease her pain, improve her flexibility and strength, and return to her prior level of function. Physical Therapy Plan Frequency and Duration Frequency of Treatment 2x/Week Duration of Treatment 12 weeks Plan of Care Start Date 05/24/22 Plan of Care End Date 08/26/22 Therapeutic Interventions Therapeutic Interventions Aquatic Therapy,Gait Training, Home Exercise Program,Manual Therapy,Patient/Caregiver Education,Self-Care/Home Management,Soft Tissue Mobilization,Taping, Therapeutic Activities, Therapeutic Exercises Modalities Cold Pack/Ice Massage,Electric Stimulation,Hot Packs, Infrared Therapy,Ultrasound Next Visit Focus/Plan Next Note Type Treatment Note Next Visit Plan Review HEP, gentle progression as tolerated for flexibility and strengthening. Manual therapy to hamstrings to include DTM, kinesiotape for inhibition. Evaluate response to ice last session, continue or consider heat.
--- NOTE | 2022-05-24 16:59 | PT.OPPOC ---
Physical, Occupational & Speech Therapy At [facility] Current Diagnoses Other specified enthesopathies of unspecified lower limb, excluding foot (05/24/22) Difficulty in walking, not elsewhere classified (05/24/22) Weakness (05/24/22) Visit Care Team Role Provider Type Mine Flowers MD Attending Provider Physician Family Provider Primary Care Provider Referring Provider Specialty: [facility] Address: [address] [place] [address], [facility] [place], [place], [facility] Email: [email or web address] Plan Of Care PT-OP-T Assessment and Plan Start: 05/23/22 14:05 Freq: Status: Active Protocol: Document 05/24/22 13:51 SAK (Rec: 05/24/22 14:32 SAK [id number]) Physical Therapy Assessment Rehab Potential Rehabilitation Potential Good Evaluation Complexity Number of Personal Factors/Comorbidities 1-2 Number of Body Systems Impaired 3 Clinical Presentation at Evaluation Evolving Impairments Impairments Activity Tolerance,Gait,Pain Goals activity tolerance Impairment painful to sit 30 min, unable to ambulate on stairs without increased pain Long-Term Goal (LTG) Patient able to sit for 30-45 min, and ascend/descend stairs with min to no pain LTG Duration 08/26/22 lacking HEP Short Term Goal (STG) Patient to be instructed in progressive HEP for purposes of flexibility and strengthening bilateral LE's Manager Payment Goal (LTG) Patient to be independent and compliant with HEP for purposes of flexibility and strengthening bilateral LE's and demonstrate 5/5 muscle strength and ROM WNL LTG Duration 08/26/22 pain bilateral hamstrings Impairment 5/10 on pain scale Impairment Unable to garden or take walks as previously due to pain bilateral hamstrings Short Term Goal (STG) pain no greater than 3/10 with all usual activities STG Duration 06/28/22 Manager Payment Goal (LTG) pain no greater than 1/10 with all usual activities including gardening and walking LTG Duration 08/26/22 Assessment Summary Assessment Patient presents to PT with acute onset bilateral hamstring pain. Signs and symptoms consistent with hamstring strain though mechanism of injury uncertain. Patient has tightness in bilateral hamstrings, tenderness bilateral ischial tuberosities, painful resisted knee flexion. Would benefit from PT to help her decrease her pain, improve her flexibility and strength, and return to her prior level of function. Physical Therapy Plan Frequency and Duration Frequency of Treatment 2x/Week Duration of Treatment 12 weeks Plan of Care Start Date 05/24/22 Plan of Care End Date 08/26/22 Therapeutic Interventions Therapeutic Interventions Aquatic Therapy,Gait Training, Home Exercise Program,Manual Therapy,Patient/Caregiver Education,Self-Care/Home Management,Soft Tissue Mobilization,Taping, Therapeutic Activities, Therapeutic Exercises Modalities Cold Pack/Ice Massage,Electric Stimulation,Hot Packs, Infrared Therapy,Ultrasound Next Visit Focus/Plan Next Note Type Treatment Note Next Visit Plan Review HEP, gentle progression as tolerated for flexibility and strengthening. Manual therapy to hamstrings to include DTM, kinesiotape for inhibition. Evaluate response to ice last session, continue or consider heat. Plan of Care Dates Plan of Care Start Date 05/24/22 Plan of Care End Date 08/26/22 Electronically Signed by: Ely Zapata, PT 05/28/22 [id number] If you are in agreement with this Plan of Care, please return a signed and dated copy. I have reviewed this Plan of Care and certify that the skilled therapy services above are required to meet the patient?s needs. Physician Signature Date Printed Name and Credentials Clinical Instructor Signature Printed Name and Credentials
--- NOTE | 2022-05-29 11:33 | PT.OTN ---
Current Diagnoses Other specified enthesopathies of unspecified lower limb, excluding foot (05/29/22) Difficulty in walking, not elsewhere classified (05/29/22) Weakness (05/29/22) Physical Therapy Treatment Note PT-OP-A Visit Information Start: 05/23/22 14:05 Freq: Status: Active Protocol: Document 05/29/22 09:44 [facility] (Rec: 05/29/22 10:30 [facility] [id number]) Out-Patient Physical Therapy Visit Information Visit Information Visit Type Treatment Note Visit Start Time 09:45 Visit Stop Time 10:40 Total Visit Minutes 50 Visit Number 2 Precautions Precautions DM Type II PT-OP-B Current Condition Start: 05/23/22 14:05 Freq: Status: Active Protocol: Document 05/29/22 09:44 [facility] (Rec: 05/29/22 10:30 [facility] [id number]) Current Condition History of Current Condition Onset Date 3 months Current Complaints bilateral hamstring pain History of Current Condition Reports acute onset, not sure what she did. Posterior thighs really hurt, seemed like it got a little better, then reinjured moving furniture, lives alone. At first did stretches and still does periodically, helped some . Takes Alleve occasionally, otherwise no treatment. No ice or heat. 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 Walks and gardens for exercise. Prior Treatments and Tests no imaging Future Testing and Treatments Planned sees doctor Jun 25. Treatment Goals Patient/Caregiver Goals Main goal is to be able to sit in car 30 min without pain, walk on stairs without pain. PT-OP-C Subjective Start: 05/23/22 14:05 Freq: Status: Active Protocol: Document 05/29/22 09:44 [facility] (Rec: 05/29/22 10:30 [facility] [id number]) OP-PT Subjective Patient Comments Patient Comments Reports muscle soreness with exercises but no increase in pain. PT-OP-G Mobility & Gait Start: 05/23/22 14:05 Freq: Status: Active Protocol: Document 05/24/22 13:51 SAK (Rec: 05/28/22 16:58 [facility] [id number]) OP Mobility Evaluation Transfers Sit to Stand requires use of UE's Stair Climbing Evaluation Evaluation Level of Assist On Stairs Independent Technique/Endurance Stair Climbing Technique Step to Step Comments Stair Climbing Comments painful PT-OP-H Neuro Start: 05/23/22 14:05 Freq: Status: Active Protocol: Document 05/24/22 13:51 [facility] (Rec: 05/28/22 16:58 [facility] [id number]) Sensation Evaluation Gross Sensation Gross Sensation WNL PT-OP-J Posture/Palpation/Skin Start: 05/23/22 14:05 Freq: Status: Active Protocol: Document 05/24/22 13:51 [facility] (Rec: 05/28/22 16:58 [facility] [id number]) Posture Evaluation Position Standing Head/C-Spine Posture Forward Head T-Spine Posture Increased Kyphosis Hip Posture (L) Externally Rotated,(R) Externally Rotated Knee Posture (L) Genu Varus,(R) Genu Varus Ankle/Foot Posture (R) Forefoot Adducted,(L) Forefoot Eversion Palpation Assessment Location hamstring Palpation Findings Soft Tissue Tightness,Muscle Guarding,Tenderness Palpation Details bilateral PT-OP-K Range of Motion Start: 05/23/22 14:05 Freq: Status: Active Protocol: Document 05/24/22 13:51 [facility] (Rec: 05/28/22 16:58 [facility] [id number]) Lumbar Spine Range of Motion Lumbar Spine Active Comments FF limited by hamstring tightness and pain Hip Goniometric Range of Motion Hip chikis Flexion w/Knee Flexed 125 Straight Leg Raise 55 Extension 5 Abduction 35 Internal Rotation 20 External Rotation 45 Knee Goniometric Range of Motion Knee chikis Knee ROM WFL Yes Ankle and Foot Goniometric Range of Motion Ankle and Foot chikis Dorsiflexion with Knee Flexed 5 Dorsiflexion with Knee Extended 0 PT-OP-M Strength Start: 05/23/22 14:05 Freq: Status: Active Protocol: Document 05/24/22 13:51 [facility] (Rec: 05/28/22 16:58 [facility] [id number]) Trunk Strength Trunk Manual Muscle Testing Flexion 4- Good- Extension 4- Good- Core Stabilization decreased core stabilization ability Hip Strength Hip Manual Muscle Testing chikis Flexion (L2) 4 Good Extension (S1) 3+ Fair+ Abduction 4- Good- Adduction 4 Good External Rotation 4- Good- Internal Rotation 4 Good Knee Strength Knee Manual Muscle Testing chikis Flexion (S2) 4 Good Extension (L3) 5 Normal Comments painful resisted flexion Ankle/Foot Strength Ankle and Foot Manual Muscle Testing chikis Dorsiflexion (L4) 4+ Good+ Plantarflexion (S1) 4+ Good+ PT-OP-Q Treatments Start: 05/23/22 14:05 Freq: Status: Active Protocol: Document 05/29/22 09:44 [facility] (Rec: 05/29/22 10:30 [facility] [id number]) Cardio Equipment Recumbent Stepper (Sci-Fit) Duration (Minutes) 5 Resistance 1 Seat Position 13 Other 55rpm Therapeutic Exercises Supine Exercises heel digs Side bilateral Reps/Minutes 5 clamshells Equipment Used green band Reps/Minutes 5 ball squeezes Reps/Minutes 5 glute squeezes Reps/Minutes 5 Prone Exercises hamstring curl Side bilateral Reps/Minutes 5 Comments 5 second hold Sitting Exercises hamstring stretch Side bilateral Reps/Minutes 2 x 30 Standing Exercises SLS Side bilateral Reps/Minutes 3 hip extension Side bilateral Reps/Minutes 5 Comments cues for alignment and muscle activation chair quad sretch Side bilateral Reps/Minutes 2 x 30 Comments braced at wall calf stretch Side bilateral Reps/Minutes 2 x 30 Manual Therapy Treatment Soft Tissue Mobilization hamstrings Mobilization Type Myofascial Release,Strumming Intensity/Depth Moderate Comments Left Medial tighter than right Self-Care/Home Management Treatment Education Patient Education Body Mechanics,Home Exercise Program,Safety PT-OP-R Modalities Start: 05/23/22 14:05 Freq: Status: Active Protocol: Document 05/29/22 09:44 [facility] (Rec: 05/29/22 10:30 [facility] [id number]) Hot Pack/Cold Pack Treatment Cold Pack Location bilateral hamstrings Patient Position Prone Treatment Duration (minutes) 10 Patient Tolerance Good PT-OP-T Assessment and Plan Start: 05/23/22 14:05 Freq: Status: Active Protocol: Document 05/29/22 09:44 [facility] (Rec: 05/29/22 10:30 [facility] [id number]) Physical Therapy Assessment Impairments Impairments Activity Tolerance,Gait,Pain Goals activity tolerance Impairment painful to sit 30 min, unable to ambulate on stairs without increased pain Project Asst Goal (LTG) Patient able to sit for 30-45 min, and ascend/descend stairs with min to no pain LTG Duration 08/26/22 lacking HEP Short Term Goal (STG) Patient to be instructed in progressive HEP for purposes of flexibility and strengthening bilateral LE's Project Asst Goal (LTG) Patient to be independent and compliant with HEP for purposes of flexibility and strengthening bilateral LE's and demonstrate 5/5 muscle strength and ROM WNL LTG Duration 08/26/22 pain bilateral hamstrings Impairment 5/10 on pain scale Impairment Unable to garden or take walks as previously due to pain bilateral hamstrings Short Term Goal (STG) pain no greater than 3/10 with all usual activities STG Duration 06/28/22 [facility] Goal (LTG) pain no greater than 1/10 with all usual activities including gardening and walking LTG Duration 08/26/22 Assessment Summary Assessment Improved performance of calf stretch after review and instruction for alignment. Pt compliant with HEP. With prone hamstring curl pt experienced slight but tolerable pain in LLE. Palpable tightness left hamstring with soft tissue work. Physical Therapy Plan Frequency and Duration Frequency of Treatment 2x/Week Duration of Treatment 12 weeks Plan of Care Start Date 05/24/22 Plan of Care End Date 08/26/22 Therapeutic Interventions Therapeutic Interventions Aquatic Therapy,Gait Training, Home Exercise Program,Manual Therapy,Patient/Caregiver Education,Self-Care/Home Management,Soft Tissue Mobilization,Taping, Therapeutic Activities, Therapeutic Exercises Modalities Cold Pack/Ice Massage,Electric Stimulation,Hot Packs, Infrared Therapy,Ultrasound Next Visit Focus/Plan Next Note Type Treatment Note Next Visit Plan Evaluate response to ther ex progression. Further DTM ( patient advised to wear shorts ), consider kinesiotape for inhibition.
--- NOTE | 2022-05-31 10:27 | PT.OTN ---
Current Diagnoses Other specified enthesopathies of unspecified lower limb, excluding foot (05/31/22) Difficulty in walking, not elsewhere classified (05/31/22) Weakness (05/31/22) Physical Therapy Treatment Note PT-OP-A Visit Information Start: 05/23/22 14:05 Freq: Status: Active Protocol: Document 05/31/22 09:46 [facility] (Rec: 05/31/22 10:27 [facility] [id number]) Out-Patient Physical Therapy Visit Information Visit Information Visit Type Treatment Note Visit Start Time 09:45 Visit Stop Time 10:40 Total Visit Minutes 50 Visit Number 3 Precautions Precautions DM Type II PT-OP-B Current Condition Start: 05/23/22 14:05 Freq: Status: Active Protocol: Document 05/31/22 09:46 [facility] (Rec: 05/31/22 10:27 [facility] [id number]) Current Condition History of Current Condition Onset Date 3 months Current Complaints bilateral hamstring pain History of Current Condition Reports acute onset, not sure what she did. Posterior thighs really hurt, seemed like it got a little better, then reinjured moving furniture, lives alone. At first did stretches and still does periodically, helped some . Takes Alleve occasionally, otherwise no treatment. No ice or heat. 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 Walks and gardens for exercise. Prior Treatments and Tests no imaging Future Testing and Treatments Planned sees doctor Jun 25. Treatment Goals Patient/Caregiver Goals Main goal is to be able to sit in car 30 min without pain, walk on stairs without pain. PT-OP-C Subjective Start: 05/23/22 14:05 Freq: Status: Active Protocol: Document 05/31/22 09:46 [facility] (Rec: 05/31/22 10:27 [facility] [id number]) OP-PT Subjective Patient Comments Patient Comments Can sit a little longer. Good compliance to HEP without difficulty. PT-OP-G Mobility & Gait Start: 05/23/22 14:05 Freq: Status: Active Protocol: Document 05/24/22 13:51 [facility] (Rec: 05/28/22 16:58 [facility] [id number]) OP Mobility Evaluation Transfers Sit to Stand requires use of UE's Stair Climbing Evaluation Evaluation Level of Assist On Stairs Independent Technique/Endurance Stair Climbing Technique Step to Step Comments Stair Climbing Comments painful PT-OP-H Neuro Start: 05/23/22 14:05 Freq: Status: Active Protocol: Document 05/24/22 13:51 [facility] (Rec: 05/28/22 16:58 [facility] [id number]) Sensation Evaluation Gross Sensation Gross Sensation WNL PT-OP-J Posture/Palpation/Skin Start: 05/23/22 14:05 Freq: Status: Active Protocol: Document 05/24/22 13:51 [facility] (Rec: 05/28/22 16:58 [facility] [id number]) Posture Evaluation Position Standing Head/C-Spine Posture Forward Head T-Spine Posture Increased Kyphosis Hip Posture (L) Externally Rotated,(R) Externally Rotated Knee Posture (L) Genu Varus,(R) Genu Varus Ankle/Foot Posture (R) Forefoot Adducted,(L) Forefoot Eversion Palpation Assessment Location hamstring Palpation Findings Soft Tissue Tightness,Muscle Guarding,Tenderness Palpation Details bilateral PT-OP-K Range of Motion Start: 05/23/22 14:05 Freq: Status: Active Protocol: Document 05/24/22 13:51 [facility] (Rec: 05/28/22 16:58 [facility] [id number]) Lumbar Spine Range of Motion Lumbar Spine Active Comments FF limited by hamstring tightness and pain Hip Goniometric Range of Motion Hip chikis Flexion w/Knee Flexed 125 Straight Leg Raise 55 Extension 5 Abduction 35 Internal Rotation 20 External Rotation 45 Knee Goniometric Range of Motion Knee chikis Knee ROM WFL Yes Ankle and Foot Goniometric Range of Motion Ankle and Foot chikis Dorsiflexion with Knee Flexed 5 Dorsiflexion with Knee Extended 0 PT-OP-M Strength Start: 05/23/22 14:05 Freq: Status: Active Protocol: Document 05/24/22 13:51 [facility] (Rec: 05/28/22 16:58 [facility] [id number]) Trunk Strength Trunk Manual Muscle Testing Flexion 4- Good- Extension 4- Good- Core Stabilization decreased core stabilization ability Hip Strength Hip Manual Muscle Testing chikis Flexion (L2) 4 Good Extension (S1) 3+ Fair+ Abduction 4- Good- Adduction 4 Good External Rotation 4- Good- Internal Rotation 4 Good Knee Strength Knee Manual Muscle Testing chikis Flexion (S2) 4 Good Extension (L3) 5 Normal Comments painful resisted flexion Ankle/Foot Strength Ankle and Foot Manual Muscle Testing chikis Dorsiflexion (L4) 4+ Good+ Plantarflexion (S1) 4+ Good+ PT-OP-Q Treatments Start: 05/23/22 14:05 Freq: Status: Active Protocol: Document 05/31/22 09:46 [facility] (Rec: 05/31/22 10:27 [facility] [id number]) Cardio Equipment Recumbent Stepper (Sci-Fit) Duration (Minutes) 7 Resistance 1.5 Seat Position 13 Other first 2 min UE's and LE's, then LE's only Therapeutic Exercises Sitting Exercises hamstring stretch Side bilateral Reps/Minutes 2 x 30 Manual Therapy Treatment Soft Tissue Mobilization hamstrings Body Location left LE Mobilization Type Instrument Assisted,Myofascial Release,Rolling,Strumming Intensity/Depth Moderate Taping left hamstrings Treatment Focus inhibition, pain reduction Type of Tape kinesiotape Comments Y strip Self-Care/Home Management Treatment Education Patient Education Pain Management Other Education self-massage with rolling pin PT-OP-R Modalities Start: 05/23/22 14:05 Freq: Status: Active Protocol: Document 05/31/22 09:46 [facility] (Rec: 05/31/22 10:27 [facility] [id number]) Hot Pack/Cold Pack Treatment moist heat Location left hamstrings Patient Position Prone Treatment Duration (minutes) 15 Patient Tolerance Good PT-OP-T Assessment and Plan Start: 05/23/22 14:05 Freq: Status: Active Protocol: Document 05/31/22 09:46 [facility] (Rec: 05/31/22 10:27 [facility] [id number]) Physical Therapy Assessment Goals activity tolerance Impairment painful to sit 30 min, unable to ambulate on stairs without increased pain [employer] Goal (LTG) Patient able to sit for 30-45 min, and ascend/descend stairs with min to no pain LTG Duration 08/26/22 lacking HEP Short Term Goal (STG) Patient to be instructed in progressive HEP for purposes of flexibility and strengthening bilateral LE's Skilled Nursing Goal (LTG) Patient to be independent and compliant with HEP for purposes of flexibility and strengthening bilateral LE's and demonstrate 5/5 muscle strength and ROM WNL LTG Duration 08/26/22 pain bilateral hamstrings Impairment 5/10 on pain scale Impairment Unable to garden or take walks as previously due to pain bilateral hamstrings Short Term Goal (STG) pain no greater than 3/10 with all usual activities STG Duration 06/28/22 [employer] Goal (LTG) pain no greater than 1/10 with all usual activities including gardening and walking LTG Duration 08/26/22 Assessment Summary Assessment Improving pain, decreased hamstring tightness with soft tissue mobilization. Patient demonstrated good understanding of self-massage. Good HEP compliance. Trial moist heat after soft tissue mobilization today. Physical Therapy Plan Frequency and Duration Frequency of Treatment 2x/Week Duration of Treatment 12 weeks Plan of Care Start Date 05/24/22 Plan of Care End Date 08/26/22 Therapeutic Interventions Therapeutic Interventions Aquatic Therapy,Gait Training, Home Exercise Program,Manual Therapy,Patient/Caregiver Education,Self-Care/Home Management,Soft Tissue Mobilization,Taping, Therapeutic Activities, Therapeutic Exercises Modalities Cold Pack/Ice Massage,Electric Stimulation,Hot Packs, Infrared Therapy,Ultrasound Next Visit Focus/Plan Next Note Type Treatment Note Next Visit Plan Evaluate response to soft tissue mobilization, self- massage if able to do at home, and kinesiotape.
--- NOTE | 2022-06-05 18:45 | PT.OTN ---
Current Diagnoses Other specified enthesopathies of unspecified lower limb, excluding foot (06/05/22) Difficulty in walking, not elsewhere classified (06/05/22) Weakness (06/05/22) Physical Therapy Treatment Note PT-OP-A Visit Information Start: 05/23/22 14:05 Freq: Status: Active Protocol: Document 06/05/22 10:46 [facility] (Rec: 06/05/22 11:23 [facility] [id number]) Out-Patient Physical Therapy Visit Information Visit Information Visit Type Treatment Note Visit Start Time 10:35 Visit Stop Time 11:20 Total Visit Minutes 45 Visit Number 4 Number of SERVICES MANAGER Visits 1 PT-OP-B Current Condition Start: 05/23/22 14:05 Freq: Status: Active Protocol: Document 05/31/22 09:46 [facility] (Rec: 05/31/22 10:27 [facility] [id number]) Current Condition History of Current Condition Onset Date 3 months Current Complaints bilateral hamstring pain History of Current Condition Reports acute onset, not sure what she did. Posterior thighs really hurt, seemed like it got a little better, then reinjured moving furniture, lives alone. At first did stretches and still does periodically, helped some . Takes Alleve occasionally, otherwise no treatment. No ice or heat. 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 Walks and gardens for exercise. Prior Treatments and Tests no imaging Future Testing and Treatments Planned sees doctor Jun 25. Treatment Goals Patient/Caregiver Goals Main goal is to be able to sit in car 30 min without pain, walk on stairs without pain. PT-OP-C Subjective Start: 05/23/22 14:05 Freq: Status: Active Protocol: Document 06/05/22 10:46 [facility] (Rec: 06/05/22 11:23 [facility] [id number]) OP-PT Subjective Patient Comments Patient Comments Pt states her HS feels sore when she sits like in car, but then is better. She is doing her exercises. She did not notice a difference with KT tape. PT-OP-G Mobility & Gait Start: 05/23/22 14:05 Freq: Status: Active Protocol: Document 05/24/22 13:51 [facility] (Rec: 05/28/22 16:58 [facility] [id number]) OP Mobility Evaluation Transfers Sit to Stand requires use of UE's Stair Climbing Evaluation Evaluation Level of Assist On Stairs Independent Technique/Endurance Stair Climbing Technique Step to Step Comments Stair Climbing Comments painful PT-OP-H Neuro Start: 05/23/22 14:05 Freq: Status: Active Protocol: Document 05/24/22 13:51 [facility] (Rec: 05/28/22 16:58 [facility] [id number]) Sensation Evaluation Gross Sensation Gross Sensation WNL PT-OP-J Posture/Palpation/Skin Start: 05/23/22 14:05 Freq: Status: Active Protocol: Document 05/24/22 13:51 [facility] (Rec: 05/28/22 16:58 [facility] [id number]) Posture Evaluation Position Standing Head/C-Spine Posture Forward Head T-Spine Posture Increased Kyphosis Hip Posture (L) Externally Rotated,(R) Externally Rotated Knee Posture (L) Genu Varus,(R) Genu Varus Ankle/Foot Posture (R) Forefoot Adducted,(L) Forefoot Eversion Palpation Assessment Location hamstring Palpation Findings Soft Tissue Tightness,Muscle Guarding,Tenderness Palpation Details bilateral PT-OP-K Range of Motion Start: 05/23/22 14:05 Freq: Status: Active Protocol: Document 05/24/22 13:51 [facility] (Rec: 05/28/22 16:58 [facility] [id number]) Lumbar Spine Range of Motion Lumbar Spine Active Comments FF limited by hamstring tightness and pain Hip Goniometric Range of Motion Hip chikis Flexion w/Knee Flexed 125 Straight Leg Raise 55 Extension 5 Abduction 35 Internal Rotation 20 External Rotation 45 Knee Goniometric Range of Motion Knee chikis Knee ROM WFL Yes Ankle and Foot Goniometric Range of Motion Ankle and Foot chikis Dorsiflexion with Knee Flexed 5 Dorsiflexion with Knee Extended 0 PT-OP-M Strength Start: 05/23/22 14:05 Freq: Status: Active Protocol: Document 05/24/22 13:51 [facility] (Rec: 05/28/22 16:58 [facility] [id number]) Trunk Strength Trunk Manual Muscle Testing Flexion 4- Good- Extension 4- Good- Core Stabilization decreased core stabilization ability Hip Strength Hip Manual Muscle Testing chikis Flexion (L2) 4 Good Extension (S1) 3+ Fair+ Abduction 4- Good- Adduction 4 Good External Rotation 4- Good- Internal Rotation 4 Good Knee Strength Knee Manual Muscle Testing chikis Flexion (S2) 4 Good Extension (L3) 5 Normal Comments painful resisted flexion Ankle/Foot Strength Ankle and Foot Manual Muscle Testing chikis Dorsiflexion (L4) 4+ Good+ Plantarflexion (S1) 4+ Good+ PT-OP-Q Treatments Start: 05/23/22 14:05 Freq: Status: Active Protocol: Document 06/05/22 10:46 [facility] (Rec: 06/05/22 11:23 [facility] [id number]) Cardio Equipment Recumbent Stepper (Sci-Fit) Duration (Minutes) 9 Resistance 1.5 Seat Position 13 Other first 2 min UE's and LE's, then LE's only, cue for knee alignment Therapeutic Exercises Supine Exercises heel digs Side bilateral Reps/Minutes 5 Comments cue for LE alignment clamshells Equipment Used green band Reps/Minutes 5 ball squeezes Reps/Minutes 5 glute squeezes Reps/Minutes 5 Comments cue for LE alignment Prone Exercises hamstring curl Side bilateral Reps/Minutes 5 Comments 5 second hold, cue for ankle/ knee alignment Sitting Exercises hamstring stretch Side bilateral Reps/Minutes 2 x 30 Standing Exercises SLS Side bilateral Equipment Used mirror and gaitbelt at hips for visual feedback Reps/Minutes 3 Comments vc for trendelenberg hip extension Side bilateral Equipment Used block extending from between feet to keep from tandem position Reps/Minutes 5 Comments cues for alignment, straight leg, increase feet width chair quad sretch Side bilateral Reps/Minutes 2 x 30 Comments braced at wall calf stretch Side bilateral Reps/Minutes 2 x 30 Manual Therapy Treatment Soft Tissue Mobilization hamstrings Body Location left LE Mobilization Type Other Intensity/Depth Moderate Body Position Prone Comments circular strokes distal to proximal PT-OP-R Modalities Start: 05/23/22 14:05 Freq: Status: Active Protocol: Document 06/05/22 10:46 [facility] (Rec: 06/05/22 11:23 [facility] [id number]) Hot Pack/Cold Pack Treatment Cold Pack Location bilateral hamstrings Patient Position Prone Treatment Duration (minutes) 10 Patient Tolerance Good Comments Pt requested cold pack instead of moist heat end of session. PT-OP-T Assessment and Plan Start: 05/23/22 14:05 Freq: Status: Active Protocol: Document 06/05/22 10:46 [facility] (Rec: 06/05/22 11:23 [facility] [id number]) Physical Therapy Assessment Impairments Impairments Activity Tolerance,Gait,Pain Goals activity tolerance Impairment painful to sit 30 min, unable to ambulate on stairs without increased pain [employer] Operator Goal (LTG) Patient able to sit for 30-45 min, and ascend/descend stairs with min to no pain LTG Duration 08/26/22 lacking HEP Short Term Goal (STG) Patient to be instructed in progressive HEP for purposes of flexibility and strengthening bilateral LE's Senior Care Goal (LTG) Patient to be independent and compliant with HEP for purposes of flexibility and strengthening bilateral LE's and demonstrate 5/5 muscle strength and ROM WNL LTG Duration 08/26/22 pain bilateral hamstrings Impairment 5/10 on pain scale Impairment Unable to garden or take walks as previously due to pain bilateral hamstrings Short Term Goal (STG) pain no greater than 3/10 with all usual activities STG Duration 06/28/22 Senior [facility] Goal (LTG) pain no greater than 1/10 with all usual activities including gardening and walking LTG Duration 08/26/22 Assessment Summary Assessment Treatment focus today on HEP review. Pt requires maximum verbal and tactile cues for maintaining hip/knee/ankle alignment throughout treatment session but demonstrates improved self-awareness end of session. Pt's copies of HEP were updated w/ cues for positioning and maintaing hip/ knee/foot alignment where appropriate. Physical Therapy Plan Frequency and Duration Frequency of Treatment 2x/Week Duration of Treatment 12 weeks Plan of Care Start Date 05/24/22 Plan of Care End Date 08/26/22 Therapeutic Interventions Therapeutic Interventions Aquatic Therapy,Gait Training, Home Exercise Program,Manual Therapy,Patient/Caregiver Education,Self-Care/Home Management,Soft Tissue Mobilization,Taping, Therapeutic Activities, Therapeutic Exercises Modalities Cold Pack/Ice Massage,Electric Stimulation,Hot Packs, Infrared Therapy,Ultrasound Next Visit Focus/Plan Next Note Type Treatment Note Next Visit Plan Evaluate response to soft tissue mobilization, self- massage if able to do at home, and kinesiotape.
--- NOTE | 2022-06-07 10:30 | PT.OTN ---
Current Diagnoses Other specified enthesopathies of unspecified lower limb, excluding foot (06/07/22) Difficulty in walking, not elsewhere classified (06/07/22) Weakness (06/07/22) Physical Therapy Treatment Note PT-OP-A Visit Information Start: 05/23/22 14:05 Freq: Status: Active Protocol: Document 06/07/22 09:48 SP (Rec: 06/07/22 10:41 SP [id number]) Out-Patient Physical Therapy Visit Information Visit Information Visit Type Treatment Note Visit Start Time 09:48 Visit Stop Time 10:30 Total Visit Minutes 42 Visit Number 5 Number of VASCULAR SURGEON Visits 2 Precautions Precautions DM Type II, 06/07/22 states has gastroparesis. PT-OP-B Current Condition Start: 05/23/22 14:05 Freq: Status: Active Protocol: Document 05/31/22 09:46 SAK (Rec: 05/31/22 10:27 SAK [id number]) Current Condition History of Current Condition Onset Date 3 months Current Complaints bilateral hamstring pain History of Current Condition Reports acute onset, not sure what she did. Posterior thighs really hurt, seemed like it got a little better, then reinjured moving furniture, lives alone. At first did stretches and still does periodically, helped some . Takes Alleve occasionally, otherwise no treatment. No ice or heat. 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 Walks and gardens for exercise. Prior Treatments and Tests no imaging Future Testing and Treatments Planned sees doctor Jun 25. Treatment Goals Patient/Caregiver Goals Main goal is to be able to sit in car 30 min without pain, walk on stairs without pain. PT-OP-C Subjective Start: 05/23/22 14:05 Freq: Status: Active Protocol: Document 06/07/22 09:48 SP (Rec: 06/07/22 10:41 SP [id number]) OP-PT Subjective Patient Comments Patient Comments Pt reports did well after last tx and with HEP thus far. PT-OP-G Mobility & Gait Start: 05/23/22 14:05 Freq: Status: Active Protocol: Document 05/24/22 13:51 SAK (Rec: 05/28/22 16:58 SAK [id number]) OP Mobility Evaluation Transfers Sit to Stand requires use of UE's Stair Climbing Evaluation Evaluation Level of Assist On Stairs Independent Technique/Endurance Stair Climbing Technique Step to Step Comments Stair Climbing Comments painful PT-OP-H Neuro Start: 05/23/22 14:05 Freq: Status: Active Protocol: Document 05/24/22 13:51 [facility] (Rec: 05/28/22 16:58 [facility] [id number]) Sensation Evaluation Gross Sensation Gross Sensation WNL PT-OP-J Posture/Palpation/Skin Start: 05/23/22 14:05 Freq: Status: Active Protocol: Document 05/24/22 13:51 [facility] (Rec: 05/28/22 16:58 [facility] [id number]) Posture Evaluation Position Standing Head/C-Spine Posture Forward Head T-Spine Posture Increased Kyphosis Hip Posture (L) Externally Rotated,(R) Externally Rotated Knee Posture (L) Genu Varus,(R) Genu Varus Ankle/Foot Posture (R) Forefoot Adducted,(L) Forefoot Eversion Palpation Assessment Location hamstring Palpation Findings Soft Tissue Tightness,Muscle Guarding,Tenderness Palpation Details bilateral PT-OP-K Range of Motion Start: 05/23/22 14:05 Freq: Status: Active Protocol: Document 05/24/22 13:51 [facility] (Rec: 05/28/22 16:58 [facility] [id number]) Lumbar Spine Range of Motion Lumbar Spine Active Comments FF limited by hamstring tightness and pain Hip Goniometric Range of Motion Hip chikis Flexion w/Knee Flexed 125 Straight Leg Raise 55 Extension 5 Abduction 35 Internal Rotation 20 External Rotation 45 Knee Goniometric Range of Motion Knee chikis Knee ROM WFL Yes Ankle and Foot Goniometric Range of Motion Ankle and Foot chikis Dorsiflexion with Knee Flexed 5 Dorsiflexion with Knee Extended 0 PT-OP-M Strength Start: 05/23/22 14:05 Freq: Status: Active Protocol: Document 05/24/22 13:51 [facility] (Rec: 05/28/22 16:58 [facility] [id number]) Trunk Strength Trunk Manual Muscle Testing Flexion 4- Good- Extension 4- Good- Core Stabilization decreased core stabilization ability Hip Strength Hip Manual Muscle Testing chikis Flexion (L2) 4 Good Extension (S1) 3+ Fair+ Abduction 4- Good- Adduction 4 Good External Rotation 4- Good- Internal Rotation 4 Good Knee Strength Knee Manual Muscle Testing chikis Flexion (S2) 4 Good Extension (L3) 5 Normal Comments painful resisted flexion Ankle/Foot Strength Ankle and Foot Manual Muscle Testing chikis Dorsiflexion (L4) 4+ Good+ Plantarflexion (S1) 4+ Good+ PT-OP-Q Treatments Start: 05/23/22 14:05 Freq: Status: Active Protocol: Document 06/07/22 09:48 SP (Rec: 06/07/22 10:41 SP [id number]) Cardio Equipment Recumbent Stepper (Sci-Fit) Duration (Minutes) 7 Resistance 1.5> 2 last minute Seat Position 13 Other first 2 min UE's and LE's, then LE's only, cue for knee alignment Therapeutic Exercises Supine Exercises Jamir stretch Supine Exercise Name added to HEP Side bilateral Resistance L>R tight Reps/Minutes 30 hold Comments opp LE knee bent on table, cued neutral LS awareness Prone Exercises hamstring curl Side bilateral Reps/Minutes 5 Comments 5 second hold, cue for ankle/ knee alignment Sitting Exercises self STMs Sitting Exercise Name rolling pin to HS primarily but also calf, quad, ITB Side bilateral Reps/Minutes 3 min total Comments good feedback response it felt good after last time no handles home hamstring stretch Sitting Exercise Name 1.feet //, IR, ER hold stretch 2. w/ AP Side bilateral Reps/Minutes 2 x 30 Comments good feedback response stretch w/ mob Standing Exercises SLS Standing Exercise Name HEP reviewed Side bilateral Equipment Used mirror and gaitbelt at hips for visual feedback Reps/Minutes RLE 10s, 15 s ; LLE 12s, 10 s Comments vcs for tall posturing over stance LE, core/glut squeeze hip extension Standing Exercise Name HEP reviewed Side bilateral Resistance AROM Equipment Used mirror for self space between BLE awareness Reps/Minutes 5 Comments cues for alignment, straight leg, incr feet width and TA no LB recruitment chair quad sretch Side bilateral Reps/Minutes 2 x 30 Comments braced at wall calf stretch Standing Exercise Name HEP reviewed: lunge positioning Side bilateral Equipment Used towel under forefoot, also aligns feet space between Reps/Minutes 2 x 30 Comments good feedback stretch Manual Therapy Treatment Soft Tissue Mobilization B anterior hip Body Location TFL, quad Mobilization Type Cross-Friction,Instrument Assisted,Myofascial Release, Strumming Intensity/Depth Moderate Comments manual and instruction on self ball wall and rolling pin use . Added Jamir stretch. Self-Care/Home Management Treatment Education Patient Education Home Exercise Program,Pain Management Other Education demonstrated self-massage with rolling pin (no handles at home though), also initiated Jamir stretch, L>R quad tightness. PT-OP-R Modalities Start: 05/23/22 14:05 Freq: Status: Active Protocol: Document 06/05/22 10:46 NBM (Rec: 06/05/22 11:23 NBM [id number]) Hot Pack/Cold Pack Treatment Cold Pack Location bilateral hamstrings Patient Position Prone Treatment Duration (minutes) 10 Patient Tolerance Good Comments Pt requested cold pack instead of moist heat end of session. PT-OP-T Assessment and Plan Start: 05/23/22 14:05 Freq: Status: Active Protocol: Document 06/07/22 09:48 SP (Rec: 06/07/22 10:41 SP [id number]) Physical Therapy Assessment Goals activity tolerance Impairment painful to sit 30 min, unable to ambulate on stairs without increased pain Shaker Repairer Goal (LTG) Patient able to sit for 30-45 min, and ascend/descend stairs with min to no pain LTG Duration 08/26/22 lacking HEP Short Term Goal (STG) Patient to be instructed in progressive HEP for purposes of flexibility and strengthening bilateral LE's Shaker Repairer Goal (LTG) Patient to be independent and compliant with HEP for purposes of flexibility and strengthening bilateral LE's and demonstrate 5/5 muscle strength and ROM WNL LTG Duration 08/26/22 pain bilateral hamstrings Impairment 5/10 on pain scale Impairment Unable to garden or take walks as previously due to pain bilateral hamstrings Short Term Goal (STG) pain no greater than 3/10 with all usual activities STG Duration 06/28/22 Snf Goal (LTG) pain no greater than 1/10 with all usual activities including gardening and walking LTG Duration 08/26/22 Assessment Summary Assessment Pt improved decrease hip flexion during prone HS curl post manual STMs to quad and use rolling pin and jamir stretch. Good HEP review wth use HOs. Pt able to perform SLS up to 12s B, improved understanding and confidence with set up with cues for trunk posturing/ alignment. Physical Therapy Plan Frequency and Duration Frequency of Treatment 2x/Week Duration of Treatment 12 weeks Plan of Care Start Date 05/24/22 Plan of Care End Date 08/26/22 Therapeutic Interventions Therapeutic Interventions Aquatic Therapy,Gait Training, Home Exercise Program,Manual Therapy,Patient/Caregiver Education,Self-Care/Home Management,Soft Tissue Mobilization,Taping, Therapeutic Activities, Therapeutic Exercises Modalities Cold Pack/Ice Massage,Electric Stimulation,Hot Packs, Infrared Therapy,Ultrasound Next Visit Focus/Plan Next Note Type Treatment Note Next Visit Plan Recheck jamir stretch, self rolling, prone HS curl decreas hip flexion compenstation. POC: continue progress HS ROM strengthening. Continue manual.
--- NOTE | 2022-06-12 13:00 | PT.OTN ---
Current Diagnoses Other specified enthesopathies of unspecified lower limb, excluding foot (06/12/22) Difficulty in walking, not elsewhere classified (06/12/22) Weakness (06/12/22) Physical Therapy Treatment Note PT-OP-A Visit Information Start: 05/23/22 14:05 Freq: Status: Active Protocol: Document 06/12/22 10:31 SAK (Rec: 06/12/22 11:17 SAK [id number]) Out-Patient Physical Therapy Visit Information Visit Information Visit Type Treatment Note Visit Start Time 10:30 Visit Stop Time 11:25 Total Visit Minutes 55 Visit Number 6 Number of NETWORK MGR Visits 0 Precautions Precautions DM Type II, 06/07/22 states has gastroparesis. PT-OP-B Current Condition Start: 05/23/22 14:05 Freq: Status: Active Protocol: Document 05/31/22 09:46 SAK (Rec: 05/31/22 10:27 SAK [id number]) Current Condition History of Current Condition Onset Date 3 months Current Complaints bilateral hamstring pain History of Current Condition Reports acute onset, not sure what she did. Posterior thighs really hurt, seemed like it got a little better, then reinjured moving furniture, lives alone. At first did stretches and still does periodically, helped some . Takes Alleve occasionally, otherwise no treatment. No ice or heat. 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 Walks and gardens for exercise. Prior Treatments and Tests no imaging Future Testing and Treatments Planned sees doctor Jun 25. Treatment Goals Patient/Caregiver Goals Main goal is to be able to sit in car 30 min without pain, walk on stairs without pain. PT-OP-C Subjective Start: 05/23/22 14:05 Freq: Status: Active Protocol: Document 06/12/22 10:31 SAK (Rec: 06/12/22 11:17 SAK [id number]) OP-PT Subjective Patient Comments Patient Comments Patient reports some decrease in pain, I know maybe I don't do it any good while gardening but gardening feels some better. Compliant to HEP. I don't do well with the self massage against the wall with tennis ball. PT-OP-G Mobility & Gait Start: 05/23/22 14:05 Freq: Status: Active Protocol: Document 05/24/22 13:51 SAK (Rec: 05/28/22 16:58 [facility] [id number]) OP Mobility Evaluation Transfers Sit to Stand requires use of UE's Stair Climbing Evaluation Evaluation Level of Assist On Stairs Independent Technique/Endurance Stair Climbing Technique Step to Step Comments Stair Climbing Comments painful PT-OP-H Neuro Start: 05/23/22 14:05 Freq: Status: Active Protocol: Document 05/24/22 13:51 [facility] (Rec: 05/28/22 16:58 [facility] [id number]) Sensation Evaluation Gross Sensation Gross Sensation WNL PT-OP-J Posture/Palpation/Skin Start: 05/23/22 14:05 Freq: Status: Active Protocol: Document 05/24/22 13:51 [facility] (Rec: 05/28/22 16:58 [facility] [id number]) Posture Evaluation Position Standing Head/C-Spine Posture Forward Head T-Spine Posture Increased Kyphosis Hip Posture (L) Externally Rotated,(R) Externally Rotated Knee Posture (L) Genu Varus,(R) Genu Varus Ankle/Foot Posture (R) Forefoot Adducted,(L) Forefoot Eversion Palpation Assessment Location hamstring Palpation Findings Soft Tissue Tightness,Muscle Guarding,Tenderness Palpation Details bilateral PT-OP-K Range of Motion Start: 05/23/22 14:05 Freq: Status: Active Protocol: Document 05/24/22 13:51 [facility] (Rec: 05/28/22 16:58 [facility] [id number]) Lumbar Spine Range of Motion Lumbar Spine Active Comments FF limited by hamstring tightness and pain Hip Goniometric Range of Motion Hip chikis Flexion w/Knee Flexed 125 Straight Leg Raise 55 Extension 5 Abduction 35 Internal Rotation 20 External Rotation 45 Knee Goniometric Range of Motion Knee chikis Knee ROM WFL Yes Ankle and Foot Goniometric Range of Motion Ankle and Foot chikis Dorsiflexion with Knee Flexed 5 Dorsiflexion with Knee Extended 0 PT-OP-M Strength Start: 05/23/22 14:05 Freq: Status: Active Protocol: Document 05/24/22 13:51 [facility] (Rec: 05/28/22 16:58 [facility] [id number]) Trunk Strength Trunk Manual Muscle Testing Flexion 4- Good- Extension 4- Good- Core Stabilization decreased core stabilization ability Hip Strength Hip Manual Muscle Testing chikis Flexion (L2) 4 Good Extension (S1) 3+ Fair+ Abduction 4- Good- Adduction 4 Good External Rotation 4- Good- Internal Rotation 4 Good Knee Strength Knee Manual Muscle Testing chikis Flexion (S2) 4 Good Extension (L3) 5 Normal Comments painful resisted flexion Ankle/Foot Strength Ankle and Foot Manual Muscle Testing chikis Dorsiflexion (L4) 4+ Good+ Plantarflexion (S1) 4+ Good+ PT-OP-Q Treatments Start: 05/23/22 14:05 Freq: Status: Active Protocol: Document 06/12/22 10:31 SAK (Rec: 06/12/22 11:17 SAK [id number]) Cardio Equipment Recumbent Stepper (Sci-Fit) Duration (Minutes) 8 Resistance 1.5 Seat Position 13 Other first 2 min UE's and LE's, then LE's only, cue for knee alignment Therapeutic Exercises Supine Exercises SLR Reps/Minutes 10 Groin stretch Equipment Used strap Reps/Minutes 2x IT band stretch Equipment Used strap Reps/Minutes 2x HS stretch Equipment Used strap Reps/Minutes 2x Jamir stretch Side bilateral Resistance L>R tight Reps/Minutes 30 hold Comments opp LE knee bent on table, cued neutral LS awareness Prone Exercises hamstring curl Side bilateral Reps/Minutes 10xL, 6xR (cramping limited) Comments 5 second hold, cue for ankle/ knee alignment Sidelying Exercises clamshell Reps/Minutes 10x Comments cues for alignment, core engagement. hip abduction Reps/Minutes 10x Comments cues for LE alignment Sitting Exercises hamstring stretch Sitting Exercise Name 1.feet //, IR, ER hold stretch 2. w/ AP Side bilateral Comments good feedback response stretch w/ mob Manual Therapy Treatment Soft Tissue Mobilization B anterior hip Body Location TFL, quad Mobilization Type Cross-Friction,Instrument Assisted,Myofascial Release, Strumming Intensity/Depth Moderate Self-Care/Home Management Treatment Education Patient Education Home Exercise Program,Pain Management Other Education updated HEP PT-OP-R Modalities Start: 05/23/22 14:05 Freq: Status: Active Protocol: Document 06/05/22 10:46 NBM (Rec: 06/05/22 11:23 NBM [id number]) Hot Pack/Cold Pack Treatment Cold Pack Location bilateral hamstrings Patient Position Prone Treatment Duration (minutes) 10 Patient Tolerance Good Comments Pt requested cold pack instead of moist heat end of session. PT-OP-T Assessment and Plan Start: 05/23/22 14:05 Freq: Status: Active Protocol: Document 06/12/22 10:31 [facility] (Rec: 06/12/22 11:17 [facility] [id number]) Physical Therapy Assessment Goals activity tolerance Impairment painful to sit 30 min, unable to ambulate on stairs without increased pain Chair Mender Goal (LTG) Patient able to sit for 30-45 min, and ascend/descend stairs with min to no pain LTG Duration 08/26/22 lacking HEP Short Term Goal (STG) Patient to be instructed in progressive HEP for purposes of flexibility and strengthening bilateral LE's Senior Living Goal (LTG) Patient to be independent and compliant with HEP for purposes of flexibility and strengthening bilateral LE's and demonstrate 5/5 muscle strength and ROM WNL LTG Duration 08/26/22 pain bilateral hamstrings Impairment 5/10 on pain scale Impairment Unable to garden or take walks as previously due to pain bilateral hamstrings Short Term Goal (STG) pain no greater than 3/10 with all usual activities STG Duration 06/28/22 Senior Living Goal (LTG) pain no greater than 1/10 with all usual activities including gardening and walking LTG Duration 08/26/22 Assessment Summary Assessment Patient improving tolerance for gardening, some improvement in strength. Needs further HS and gluteal strengthening, lengthening anterior chain Physical Therapy Plan Frequency and Duration Frequency of Treatment 2x/Week Duration of Treatment 12 weeks Plan of Care Start Date 05/24/22 Plan of Care End Date 08/26/22 Therapeutic Interventions Therapeutic Interventions Aquatic Therapy,Gait Training, Home Exercise Program,Manual Therapy,Patient/Caregiver Education,Self-Care/Home Management,Soft Tissue Mobilization,Taping, Therapeutic Activities, Therapeutic Exercises Modalities Cold Pack/Ice Massage,Electric Stimulation,Hot Packs, Infrared Therapy,Ultrasound Next Visit Focus/Plan Next Note Type Treatment Note Next Visit Plan Continue PT, strengthening HS and gluteals, soft tissue and flexibility ant. Functional strengthening, consider partial supported lift.
--- NOTE | 2022-06-14 12:50 | PT.OTN ---
Current Diagnoses Other specified enthesopathies of unspecified lower limb, excluding foot (06/14/22) Difficulty in walking, not elsewhere classified (06/14/22) Weakness (06/14/22) Physical Therapy Treatment Note PT-OP-A Visit Information Start: 05/23/22 14:05 Freq: Status: Active Protocol: Document 06/14/22 09:42 SAK (Rec: 06/14/22 10:32 [facility] [id number]) Out-Patient Physical Therapy Visit Information Visit Information Visit Type Treatment Note Visit Start Time 09:45 Visit Stop Time 10:40 Total Visit Minutes 55 Visit Number 7 Number of SYSTEM SUPPORT ANALYST Visits 0 Precautions Precautions DM Type II, 06/07/22 states has gastroparesis. PT-OP-B Current Condition Start: 05/23/22 14:05 Freq: Status: Active Protocol: Document 05/31/22 09:46 SAK (Rec: 05/31/22 10:27 SAK [id number]) Current Condition History of Current Condition Onset Date 3 months Current Complaints bilateral hamstring pain History of Current Condition Reports acute onset, not sure what she did. Posterior thighs really hurt, seemed like it got a little better, then reinjured moving furniture, lives alone. At first did stretches and still does periodically, helped some . Takes Alleve occasionally, otherwise no treatment. No ice or heat. 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 Walks and gardens for exercise. Prior Treatments and Tests no imaging Future Testing and Treatments Planned sees doctor Jun 25. Treatment Goals Patient/Caregiver Goals Main goal is to be able to sit in car 30 min without pain, walk on stairs without pain. PT-OP-C Subjective Start: 05/23/22 14:05 Freq: Status: Active Protocol: Document 06/14/22 09:42 SAK (Rec: 06/14/22 10:32 [facility] [id number]) OP-PT Subjective Patient Comments Patient Comments I can sit longer with less fidgeting due to pain, improvement in strength for gardening, but pain still as high as 7/10 at times. PT-OP-G Mobility & Gait Start: 05/23/22 14:05 Freq: Status: Active Protocol: Document 05/24/22 13:51 SAK (Rec: 05/28/22 16:58 SAK [id number]) OP Mobility Evaluation Transfers Sit to Stand requires use of UE's Stair Climbing Evaluation Evaluation Level of Assist On Stairs Independent Technique/Endurance Stair Climbing Technique Step to Step Comments Stair Climbing Comments painful PT-OP-H Neuro Start: 05/23/22 14:05 Freq: Status: Active Protocol: Document 05/24/22 13:51 [facility] (Rec: 05/28/22 16:58 [facility] [id number]) Sensation Evaluation Gross Sensation Gross Sensation WNL PT-OP-J Posture/Palpation/Skin Start: 05/23/22 14:05 Freq: Status: Active Protocol: Document 05/24/22 13:51 [facility] (Rec: 05/28/22 16:58 [facility] [id number]) Posture Evaluation Position Standing Head/C-Spine Posture Forward Head T-Spine Posture Increased Kyphosis Hip Posture (L) Externally Rotated,(R) Externally Rotated Knee Posture (L) Genu Varus,(R) Genu Varus Ankle/Foot Posture (R) Forefoot Adducted,(L) Forefoot Eversion Palpation Assessment Location hamstring Palpation Findings Soft Tissue Tightness,Muscle Guarding,Tenderness Palpation Details bilateral PT-OP-K Range of Motion Start: 05/23/22 14:05 Freq: Status: Active Protocol: Document 05/24/22 13:51 [facility] (Rec: 05/28/22 16:58 [facility] [id number]) Lumbar Spine Range of Motion Lumbar Spine Active Comments FF limited by hamstring tightness and pain Hip Goniometric Range of Motion Hip chikis Flexion w/Knee Flexed 125 Straight Leg Raise 55 Extension 5 Abduction 35 Internal Rotation 20 External Rotation 45 Knee Goniometric Range of Motion Knee chikis Knee ROM WFL Yes Ankle and Foot Goniometric Range of Motion Ankle and Foot chikis Dorsiflexion with Knee Flexed 5 Dorsiflexion with Knee Extended 0 PT-OP-M Strength Start: 05/23/22 14:05 Freq: Status: Active Protocol: Document 05/24/22 13:51 [facility] (Rec: 05/28/22 16:58 [facility] [id number]) Trunk Strength Trunk Manual Muscle Testing Flexion 4- Good- Extension 4- Good- Core Stabilization decreased core stabilization ability Hip Strength Hip Manual Muscle Testing chikis Flexion (L2) 4 Good Extension (S1) 3+ Fair+ Abduction 4- Good- Adduction 4 Good External Rotation 4- Good- Internal Rotation 4 Good Knee Strength Knee Manual Muscle Testing chikis Flexion (S2) 4 Good Extension (L3) 5 Normal Comments painful resisted flexion Ankle/Foot Strength Ankle and Foot Manual Muscle Testing chikis Dorsiflexion (L4) 4+ Good+ Plantarflexion (S1) 4+ Good+ PT-OP-Q Treatments Start: 05/23/22 14:05 Freq: Status: Active Protocol: Document 06/14/22 09:42 [facility] (Rec: 06/14/22 10:32 [facility] [id number]) Therapeutic Exercises Supine Exercises bridge Reps/Minutes 10x Comments pain-free ROM glute squeezes Reps/Minutes 10x Comments knees bent Prone Exercises hamstring curl Side bilateral Reps/Minutes 10x Comments 5 second hold, cue for ankle/ knee alignment Sidelying Exercises figure 4 stretch Reps/Minutes 2x30 clamshell Sidelying Exercise Name HEP hip abduction Sidelying Exercise Name HEP Manual Therapy Treatment Soft Tissue Mobilization hamstrings Body Location chikis right greater than left Mobilization Type Myofascial Release,Strumming Intensity/Depth Moderate Body Position Prone Comments also IT band Self-Care/Home Management Treatment Education Patient Education Home Exercise Program,Pain Management Other Education added bridge, figure-4, piriformis stretch PT-OP-R Modalities Start: 05/23/22 14:05 Freq: Status: Active Protocol: Document 06/14/22 09:42 [facility] (Rec: 06/14/22 12:48 [facility] [id number]) Hot Pack/Cold Pack Treatment moist heat Location left HS Patient Position Prone Treatment Duration (minutes) 15 Comments during US and DTM right Cold Pack Location chikis HS Patient Position Supine Treatment Duration (minutes) 10 Patient Tolerance Good Comments end of session Ultrasound Therapy Treatment right proximal HS Treatment Duration (minutes) 8 Patient Position Prone Coupling Medium Ultrasound Gel Frequency Setting (mHz) 1 Mode Setting Continuous Duty Cycle 100% Intensity Setting (w/cm2) 1.5 PT-OP-T Assessment and Plan Start: 05/23/22 14:05 Freq: Status: Active Protocol: Document 06/14/22 09:42 [facility] (Rec: 06/14/22 10:32 [facility] [id number]) Physical Therapy Assessment Goals activity tolerance Impairment painful to sit 30 min, unable to ambulate on stairs without increased pain Half-Way Goal (LTG) Patient able to sit for 30-45 min, and ascend/descend stairs with min to no pain LTG Duration 08/26/22 lacking HEP Short Term Goal (STG) Patient to be instructed in progressive HEP for purposes of flexibility and strengthening bilateral LE's Propagation Manager Goal (LTG) Patient to be independent and compliant with HEP for purposes of flexibility and strengthening bilateral LE's and demonstrate 5/5 muscle strength and ROM WNL LTG Duration 08/26/22 pain bilateral hamstrings Impairment 5/10 on pain scale Impairment Unable to garden or take walks as previously due to pain bilateral hamstrings Short Term Goal (STG) pain no greater than 3/10 with all usual activities STG Duration 06/28/22 Half-Way Goal (LTG) pain no greater than 1/10 with all usual activities including gardening and walking LTG Duration 08/26/22 Assessment Summary Assessment Patient is noting improved tolerance for sitting though pain still as high as 7/10. Patient improved ability with prone hamstring curl right, able to complete 10 reps without cramping and with improved form. Trial ultrasound right proximal HS, and prone DTM chikis hamstrings right greater than left. Updated HEP. Patient compliant to HEP. Physical Therapy Plan Frequency and Duration Frequency of Treatment 2x/Week Duration of Treatment 12 weeks Plan of Care Start Date 05/24/22 Plan of Care End Date 08/26/22 Therapeutic Interventions Therapeutic Interventions Aquatic Therapy,Gait Training, Home Exercise Program,Manual Therapy,Patient/Caregiver Education,Self-Care/Home Management,Soft Tissue Mobilization,Taping, Therapeutic Activities, Therapeutic Exercises Modalities Cold Pack/Ice Massage,Electric Stimulation,Hot Packs, Infrared Therapy,Ultrasound Next Visit Focus/Plan Next Note Type Treatment Note Next Visit Plan Assess response to ultrasound, DTM HS, new ex. Continue strengthening and flexibility hamstrings. Continue PT per POC to decrease pain and improve LE function.
--- NOTE | 2022-06-19 12:00 | PT.OTN ---
Current Diagnoses Other specified enthesopathies of unspecified lower limb, excluding foot (06/19/22) Difficulty in walking, not elsewhere classified (06/19/22) Weakness (06/19/22) Physical Therapy Treatment Note PT-OP-A Visit Information Start: 05/23/22 14:05 Freq: Status: Active Protocol: Document 06/19/22 09:52 NBM (Rec: 06/19/22 10:33 [facility] [id number]) Out-Patient Physical Therapy Visit Information Visit Information Visit Type Treatment Note Visit Start Time 09:47 Visit Stop Time 10:35 Total Visit Minutes 48 Visit Number 8 Number of EMPLOYEE DEVELOPMENT SPECIALIST Visits 1 PT-OP-B Current Condition Start: 05/23/22 14:05 Freq: Status: Active Protocol: Document 05/31/22 09:46 SAK (Rec: 05/31/22 10:27 [facility] [id number]) Current Condition History of Current Condition Onset Date 3 months Current Complaints bilateral hamstring pain History of Current Condition Reports acute onset, not sure what she did. Posterior thighs really hurt, seemed like it got a little better, then reinjured moving furniture, lives alone. At first did stretches and still does periodically, helped some . Takes Alleve occasionally, otherwise no treatment. No ice or heat. 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 Walks and gardens for exercise. Prior Treatments and Tests no imaging Future Testing and Treatments Planned sees doctor Jun 25. Treatment Goals Patient/Caregiver Goals Main goal is to be able to sit in car 30 min without pain, walk on stairs without pain. PT-OP-C Subjective Start: 05/23/22 14:05 Freq: Status: Active Protocol: Document 06/19/22 09:52 NBM (Rec: 06/19/22 10:33 [facility] [id number]) OP-PT Subjective Patient Comments Patient Comments Pt reports she can sit for longer periods before pain sets in. She is not in pain right now and thinks the deep massage last treatment was very helpful. PT-OP-G Mobility & Gait Start: 05/23/22 14:05 Freq: Status: Active Protocol: Document 05/24/22 13:51 SAK (Rec: 05/28/22 16:58 SAK [id number]) OP Mobility Evaluation Transfers Sit to Stand requires use of UE's Stair Climbing Evaluation Evaluation Level of Assist On Stairs Independent Technique/Endurance Stair Climbing Technique Step to Step Comments Stair Climbing Comments painful PT-OP-H Neuro Start: 05/23/22 14:05 Freq: Status: Active Protocol: Document 05/24/22 13:51 [facility] (Rec: 05/28/22 16:58 [facility] [id number]) Sensation Evaluation Gross Sensation Gross Sensation WNL PT-OP-J Posture/Palpation/Skin Start: 05/23/22 14:05 Freq: Status: Active Protocol: Document 05/24/22 13:51 [facility] (Rec: 05/28/22 16:58 [facility] [id number]) Posture Evaluation Position Standing Head/C-Spine Posture Forward Head T-Spine Posture Increased Kyphosis Hip Posture (L) Externally Rotated,(R) Externally Rotated Knee Posture (L) Genu Varus,(R) Genu Varus Ankle/Foot Posture (R) Forefoot Adducted,(L) Forefoot Eversion Palpation Assessment Location hamstring Palpation Findings Soft Tissue Tightness,Muscle Guarding,Tenderness Palpation Details bilateral PT-OP-K Range of Motion Start: 05/23/22 14:05 Freq: Status: Active Protocol: Document 05/24/22 13:51 [facility] (Rec: 05/28/22 16:58 [facility] [id number]) Lumbar Spine Range of Motion Lumbar Spine Active Comments FF limited by hamstring tightness and pain Hip Goniometric Range of Motion Hip chikis Flexion w/Knee Flexed 125 Straight Leg Raise 55 Extension 5 Abduction 35 Internal Rotation 20 External Rotation 45 Knee Goniometric Range of Motion Knee chikis Knee ROM WFL Yes Ankle and Foot Goniometric Range of Motion Ankle and Foot chikis Dorsiflexion with Knee Flexed 5 Dorsiflexion with Knee Extended 0 PT-OP-M Strength Start: 05/23/22 14:05 Freq: Status: Active Protocol: Document 05/24/22 13:51 [facility] (Rec: 05/28/22 16:58 [facility] [id number]) Trunk Strength Trunk Manual Muscle Testing Flexion 4- Good- Extension 4- Good- Core Stabilization decreased core stabilization ability Hip Strength Hip Manual Muscle Testing chikis Flexion (L2) 4 Good Extension (S1) 3+ Fair+ Abduction 4- Good- Adduction 4 Good External Rotation 4- Good- Internal Rotation 4 Good Knee Strength Knee Manual Muscle Testing chikis Flexion (S2) 4 Good Extension (L3) 5 Normal Comments painful resisted flexion Ankle/Foot Strength Ankle and Foot Manual Muscle Testing chikis Dorsiflexion (L4) 4+ Good+ Plantarflexion (S1) 4+ Good+ PT-OP-Q Treatments Start: 05/23/22 14:05 Freq: Status: Active Protocol: Document 06/19/22 09:52 NBM (Rec: 06/19/22 10:33 [facility] [id number]) Therapeutic Exercises Supine Exercises bridge Reps/Minutes 10x Comments cues for increased height d/t no pain SLR Reps/Minutes 10 Sidelying Exercises clamshell Reps/Minutes 10x hip abduction Reps/Minutes 10x Comments cues for knees/toes fwd, less height Manual Therapy Treatment Soft Tissue Mobilization hamstrings Body Location chikis right greater than left Mobilization Type Myofascial Release,Strumming Intensity/Depth Moderate Body Position Prone Comments also IT band PT-OP-R Modalities Start: 05/23/22 14:05 Freq: Status: Active Protocol: Document 06/19/22 09:52 [facility]BM (Rec: 06/19/22 10:33 [facility] [id number]) Hot Pack/Cold Pack Treatment moist heat Location left HS Patient Position Prone Treatment Duration (minutes) 15 Comments during US and DTM right Cold Pack Location chikis HS Patient Position Supine Treatment Duration (minutes) 10 Patient Tolerance Good Comments end of session Ultrasound Therapy Treatment right proximal HS Treatment Duration (minutes) 8 Patient Position Prone Coupling Medium Ultrasound Gel Frequency Setting (mHz) 1 Mode Setting Continuous Duty Cycle 100% Intensity Setting (w/cm2) 1.5 PT-OP-T Assessment and Plan Start: 05/23/22 14:05 Freq: Status: Active Protocol: Document 06/19/22 09:52 [facility] (Rec: 06/19/22 10:33 [facility] [id number]) Physical Therapy Assessment Goals activity tolerance Impairment painful to sit 30 min, unable to ambulate on stairs without increased pain Senior Living Goal (LTG) Patient able to sit for 30-45 min, and ascend/descend stairs with min to no pain LTG Duration 08/26/22 lacking HEP Short Term Goal (STG) Patient to be instructed in progressive HEP for purposes of flexibility and strengthening bilateral LE's Client Service Administrator Goal (LTG) Patient to be independent and compliant with HEP for purposes of flexibility and strengthening bilateral LE's and demonstrate 5/5 muscle strength and ROM WNL LTG Duration 08/26/22 pain bilateral hamstrings Impairment 5/10 on pain scale Impairment Unable to garden or take walks as previously due to pain bilateral hamstrings Short Term Goal (STG) pain no greater than 3/10 with all usual activities STG Duration 06/28/22 Senior Living Goal (LTG) pain no greater than 1/10 with all usual activities including gardening and walking LTG Duration 08/26/22 Assessment Summary Assessment Treatment focus today on reviewing new HEP exercises, HS strengthening and flexibility, and manual therapy to hamstrings. Pt continues to require cues for excessive hip ER w/ exercises but improves w/ initial cueing . Pt able to perform full bridge today without pain and prone leg curls without hamstring cramps. Physical Therapy Plan Next Visit Focus/Plan Next Note Type Treatment Note Next Visit Plan Continue strengthening and flexibility hamstrings. Continue PT per POC to decrease pain and improve LE function.
--- NOTE | 2022-06-22 10:49 | PT.OTN ---
Current Diagnoses Other specified enthesopathies of unspecified lower limb, excluding foot (06/22/22) Difficulty in walking, not elsewhere classified (06/22/22) Weakness (06/22/22) Physical Therapy Treatment Note PT-OP-A Visit Information Start: 05/23/22 14:05 Freq: Status: Active Protocol: Document 06/22/22 10:02 NBM (Rec: 06/22/22 10:48 [facility] [id number]) Out-Patient Physical Therapy Visit Information Visit Information Visit Type Treatment Note Visit Start Time 10:00 Visit Stop Time 10:40 Total Visit Minutes 40 Visit Number 9 Number of STORE PROTECTION SPECIALIST Visits 2 PT-OP-B Current Condition Start: 05/23/22 14:05 Freq: Status: Active Protocol: Document 05/31/22 09:46 [facility] (Rec: 05/31/22 10:27 [facility] [id number]) Current Condition History of Current Condition Onset Date 3 months Current Complaints bilateral hamstring pain History of Current Condition Reports acute onset, not sure what she did. Posterior thighs really hurt, seemed like it got a little better, then reinjured moving furniture, lives alone. At first did stretches and still does periodically, helped some . Takes Alleve occasionally, otherwise no treatment. No ice or heat. 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 Walks and gardens for exercise. Prior Treatments and Tests no imaging Future Testing and Treatments Planned sees doctor Jun 25. Treatment Goals Patient/Caregiver Goals Main goal is to be able to sit in car 30 min without pain, walk on stairs without pain. PT-OP-C Subjective Start: 05/23/22 14:05 Freq: Status: Active Protocol: Document 06/19/22 09:52 [facility] (Rec: 06/19/22 10:33 [facility] [id number]) OP-PT Subjective Patient Comments Patient Comments Pt reports she can sit for longer periods before pain sets in. She is not in pain right now and thinks the deep massage last treatment was very helpful. I feel myself improving. PT-OP-G Mobility & Gait Start: 05/23/22 14:05 Freq: Status: Active Protocol: Document 05/24/22 13:51 [facility] (Rec: 05/28/22 16:58 [facility] [id number]) OP Mobility Evaluation Transfers Sit to Stand requires use of UE's Stair Climbing Evaluation Evaluation Level of Assist On Stairs Independent Technique/Endurance Stair Climbing Technique Step to Step Comments Stair Climbing Comments painful PT-OP-H Neuro Start: 05/23/22 14:05 Freq: Status: Active Protocol: Document 05/24/22 13:[address] [facility] (Rec: 05/28/22 16:[address] [facility] [id number]) Sensation Evaluation Gross Sensation Gross Sensation WNL PT-OP-J Posture/Palpation/Skin Start: 05/23/22 14:05 Freq: Status: Active Protocol: Document 05/24/22 13:[address] [facility] (Rec: 05/28/22 16:[address] [facility] [id number]) Posture Evaluation Position Standing Head/C-Spine Posture Forward Head T-Spine Posture Increased Kyphosis Hip Posture (L) Externally Rotated,(R) Externally Rotated Knee Posture (L) Genu Varus,(R) Genu Varus Ankle/Foot Posture (R) Forefoot Adducted,(L) Forefoot Eversion Palpation Assessment Location hamstring Palpation Findings Soft Tissue Tightness,Muscle Guarding,Tenderness Palpation Details bilateral PT-OP-K Range of Motion Start: 05/23/22 14:05 Freq: Status: Active Protocol: Document 05/24/22 13:[address] [facility] (Rec: 05/28/22 16:[address] [facility] [id number]) Lumbar Spine Range of Motion Lumbar Spine Active Comments FF limited by hamstring tightness and pain Hip Goniometric Range of Motion Hip chikis Flexion w/Knee Flexed 125 Straight Leg Raise 55 Extension 5 Abduction 35 Internal Rotation 20 External Rotation 45 Knee Goniometric Range of Motion Knee chikis Knee ROM WFL Yes Ankle and Foot Goniometric Range of Motion Ankle and Foot chikis Dorsiflexion with Knee Flexed 5 Dorsiflexion with Knee Extended 0 PT-OP-M Strength Start: 05/23/22 14:05 Freq: Status: Active Protocol: Document 05/24/22 13:[address] [facility] (Rec: 05/28/22 16:[address] [facility] [id number]) Trunk Strength Trunk Manual Muscle Testing Flexion 4- Good- Extension 4- Good- Core Stabilization decreased core stabilization ability Hip Strength Hip Manual Muscle Testing chikis Flexion (L2) 4 Good Extension (S1) 3+ Fair+ Abduction 4- Good- Adduction 4 Good External Rotation 4- Good- Internal Rotation 4 Good Knee Strength Knee Manual Muscle Testing chikis Flexion (S2) 4 Good Extension (L3) 5 Normal Comments painful resisted flexion Ankle/Foot Strength Ankle and Foot Manual Muscle Testing chikis Dorsiflexion (L4) 4+ Good+ Plantarflexion (S1) 4+ Good+ PT-OP-Q Treatments Start: 05/23/22 14:05 Freq: Status: Active Protocol: Document 06/22/22 10:02 [facility] (Rec: 06/22/22 10:48 [facility] [id number]) Therapeutic Exercises Standing Exercises Squats Standing Exercise Name mini squat Equipment Used rail Reps/Minutes x10 Comments cue for glute squeeze at top Band walking Standing Exercise Name fwd/bwd/lat - added to HEP Resistance Lvl2 Tb>Lvl1 Tb at ankles, 1>2 at knees Equipment Used rail Reps/Minutes 2x10ft Comments toes fwd, slow controlled eccentric Manual Therapy Treatment Soft Tissue Mobilization hamstrings Body Location chikis right HS Mobilization Type Myofascial Release,Strumming, Sustained Pressure Intensity/Depth Moderate Body Position Prone Comments also IT band Self-Care/Home Management Treatment Education Patient Education Home Exercise Program Other Education Added bandwalks fwd/bwd/lat and Mini squats at rail to HEP - HO given. PT-OP-R Modalities Start: 05/23/22 14:05 Freq: Status: Active Protocol: Document 06/19/22 09:52 [facility] (Rec: 06/19/22 10:33 [facility] [id number]) Hot Pack/Cold Pack Treatment moist heat Location left HS Patient Position Prone Treatment Duration (minutes) 15 Comments during US and DTM right Cold Pack Location chikis HS Patient Position Supine Treatment Duration (minutes) 10 Patient Tolerance Good Comments end of session Ultrasound Therapy Treatment right proximal HS Treatment Duration (minutes) 8 Patient Position Prone Coupling Medium Ultrasound Gel Frequency Setting (mHz) 1 Mode Setting Continuous Duty Cycle 100% Intensity Setting (w/cm2) 1.5 PT-OP-T Assessment and Plan Start: 05/23/22 14:05 Freq: Status: Active Protocol: Document 06/22/22 10:02 [facility] (Rec: 06/22/22 10:48 [facility] [id number]) Physical Therapy Assessment Goals activity tolerance Impairment painful to sit 30 min, unable to ambulate on stairs without increased pain Records Section Supervisor Goal (LTG) Patient able to sit for 30-45 min, and ascend/descend stairs with min to no pain LTG Duration 08/26/22 lacking HEP Short Term Goal (STG) Patient to be instructed in progressive HEP for purposes of flexibility and strengthening bilateral LE's Records Section Supervisor Goal (LTG) Patient to be independent and compliant with HEP for purposes of flexibility and strengthening bilateral LE's and demonstrate 5/5 muscle strength and ROM WNL LTG Duration 08/26/22 pain bilateral hamstrings Impairment 5/10 on pain scale Impairment Unable to garden or take walks as previously due to pain bilateral hamstrings Short Term Goal (STG) pain no greater than 3/10 with all usual activities STG Duration 06/28/22 Snf Goal (LTG) pain no greater than 1/10 with all usual activities including gardening and walking LTG Duration 08/26/22 Assessment Summary Assessment Treatment focus today on hip and HS strengthening and flexibility, and manual therapy to hamstrings. Pt continues to require cues for excessive hip ER w/ exercises but demonstrates increased self-correction of hip ER with exercises - pt more aware of R hip ER than L. Progressed hip extension w/ Tband at knees. Decreased palpable tightness in hamstrings after manual therapy. Added bandwalks fwd/bwd/lat and Mini squats at rail to HEP - HO given. Physical Therapy Plan Next Visit Focus/Plan Next Note Type Treatment Note Next Visit Plan Continue strengthening and flexibility hamstrings. Continue PT per POC to decrease pain and improve LE function.
--- NOTE | 2023-05-01 09:20 | PT.OPDS ---
Current Diagnoses Other specified enthesopathies of unspecified lower limb, excluding foot (06/22/22) Difficulty in walking, not elsewhere classified (06/22/22) Weakness (06/22/22) Visit Care Team Role Provider Type Mine Flowers MD Attending Provider Physician Family Provider Primary Care Provider Referring Provider Specialty: Family Practice Address: [address] [place] [address], [facility] [place], [address] Email: [email or web address] Visit Number Visit Number 9 Discharge Summary PT-OP-B Current Condition Start: 05/23/22 14:05 Freq: Status: Active Protocol: Document 05/31/22 09:46 SAK (Rec: 05/31/22 10:27 SAK [id number]) Current Condition History of Current Condition Onset Date 3 months Current Complaints bilateral hamstring pain History of Current Condition Reports acute onset, not sure what she did. Posterior thighs really hurt, seemed like it got a little better, then reinjured moving furniture, lives alone. At first did stretches and still does periodically, helped some . Takes Alleve occasionally, otherwise no treatment. No ice or heat. 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 Walks and gardens for exercise. Prior Treatments and Tests no imaging Future Testing and Treatments Planned sees doctor Jun 25. Treatment Goals Patient/Caregiver Goals Main goal is to be able to sit in car 30 min without pain, walk on stairs without pain. PT-OP-C Subjective Start: 05/23/22 14:05 Freq: Status: Active Protocol: Document 06/19/22 09:52 NBM (Rec: 06/19/22 10:33 NBM [id number]) OP-PT Subjective Patient Comments Patient Comments Pt reports she can sit for longer periods before pain sets in. She is not in pain right now and thinks the deep massage last treatment was very helpful. I feel myself improving. PT-OP-G Mobility & Gait Start: 05/23/22 14:05 Freq: Status: Active Protocol: Document 05/24/22 13:51 SAK (Rec: 05/28/22 16:58 SAK [id number]) OP Mobility Evaluation Transfers Sit to Stand requires use of UE's Stair Climbing Evaluation Evaluation Level of Assist On Stairs Independent Technique/Endurance Stair Climbing Technique Step to Step Comments Stair Climbing Comments painful PT-OP-H Neuro Start: 05/23/22 14:05 Freq: Status: Active Protocol: Document 05/24/22 13:51 [facility] (Rec: 05/28/22 16:58 [facility] [id number]) Sensation Evaluation Gross Sensation Gross Sensation WNL PT-OP-J Posture/Palpation/Skin Start: 05/23/22 14:05 Freq: Status: Active Protocol: Document 05/24/22 13:51 [facility] (Rec: 05/28/22 16:58 [facility] [id number]) Posture Evaluation Position Standing Head/C-Spine Posture Forward Head T-Spine Posture Increased Kyphosis Hip Posture (L) Externally Rotated,(R) Externally Rotated Knee Posture (L) Genu Varus,(R) Genu Varus Ankle/Foot Posture (R) Forefoot Adducted,(L) Forefoot Eversion Palpation Assessment Location hamstring Palpation Findings Soft Tissue Tightness,Muscle Guarding,Tenderness Palpation Details bilateral PT-OP-K Range of Motion Start: 05/23/22 14:05 Freq: Status: Active Protocol: Document 05/24/22 13:51 [facility] (Rec: 05/28/22 16:58 [facility] [id number]) Lumbar Spine Range of Motion Lumbar Spine Active Comments FF limited by hamstring tightness and pain Hip Goniometric Range of Motion Hip chikis Flexion w/Knee Flexed 125 Straight Leg Raise 55 Extension 5 Abduction 35 Internal Rotation 20 External Rotation 45 Knee Goniometric Range of Motion Knee chikis Knee ROM WFL Yes Ankle and Foot Goniometric Range of Motion Ankle and Foot chikis Dorsiflexion with Knee Flexed 5 Dorsiflexion with Knee Extended 0 PT-OP-M Strength Start: 05/23/22 14:05 Freq: Status: Active Protocol: Document 05/24/22 13:51 [facility] (Rec: 05/28/22 16:58 [facility] [id number]) Trunk Strength Trunk Manual Muscle Testing Flexion 4- Good- Extension 4- Good- Core Stabilization decreased core stabilization ability Hip Strength Hip Manual Muscle Testing chikis Flexion (L2) 4 Good Extension (S1) 3+ Fair+ Abduction 4- Good- Adduction 4 Good External Rotation 4- Good- Internal Rotation 4 Good Knee Strength Knee Manual Muscle Testing chikis Flexion (S2) 4 Good Extension (L3) 5 Normal Comments painful resisted flexion Ankle/Foot Strength Ankle and Foot Manual Muscle Testing chikis Dorsiflexion (L4) 4+ Good+ Plantarflexion (S1) 4+ Good+ PT-OP-T Assessment and Plan Start: 05/23/22 14:05 Freq: Status: Active Protocol: Document 06/22/22 10:02 [facility] (Rec: 06/22/22 10:48 [facility] [id number]) Physical Therapy Assessment Goals activity tolerance Impairment painful to sit 30 min, unable to ambulate on stairs without increased pain [employer] Worker Goal (LTG) Patient able to sit for 30-45 min, and ascend/descend stairs with min to no pain LTG Duration 08/26/22 lacking HEP Short Term Goal (STG) Patient to be instructed in progressive HEP for purposes of flexibility and strengthening bilateral LE's Casino Worker Goal (LTG) Patient to be independent and compliant with HEP for purposes of flexibility and strengthening bilateral LE's and demonstrate 5/5 muscle strength and ROM WNL LTG Duration 08/26/22 pain bilateral hamstrings Impairment 5/10 on pain scale Impairment Unable to garden or take walks as previously due to pain bilateral hamstrings Short Term Goal (STG) pain no greater than 3/10 with all usual activities STG Duration 06/28/22 Casino Worker Goal (LTG) pain no greater than 1/10 with all usual activities including gardening and walking LTG Duration 08/26/22 Assessment Summary Assessment Treatment focus today on hip and HS strengthening and flexibility, and manual therapy to hamstrings. Pt continues to require cues for excessive hip ER w/ exercises but demonstrates increased self-correction of hip ER with exercises - pt more aware of R hip ER than L. Progressed hip extension w/ Tband at knees. Decreased palpable tightness in hamstrings after manual therapy. Added bandwalks fwd/bwd/lat and Mini squats at rail to HEP - HO given. Physical Therapy Plan Next Visit Focus/Plan Next Note Type Treatment Note Next Visit Plan Continue strengthening and flexibility hamstrings. Continue PT per POC to decrease pain and improve LE function.
== END 2023-06-07 15:43 ==
LOC: PHYS 10:00
PROVIDERS: Family Provider Family Medicine; PCP Family Medicine; Referring Provider Family Medicine; Visit Provider Family Medicine
DX: M76.899 Other specified enthesopathies of unspecified lower limb, excluding foot (principal); R26.2 Difficulty in walking, not elsewhere classified; R53.1 Weakness
CPT/HCPCS: 97010; 97035; 97110; 97112; 97140; 97161; 97535

== ENCOUNTER → 2022-07-06 10:27 | Outpatient (CLI) | payer MEDICARE, BC, OTHER, SELFPAY ==
[2022-07-06 11:16] LABS: COVID19 -Nasal RAPID Negative (Negative)
== END ==
PROVIDERS: Family Provider Family Medicine; PCP Family Medicine; Visit Provider Surgery
DX: Z01.812 Encounter for preprocedural laboratory examination (principal); Z20.822 Contact with and (suspected) exposure to COVID-19
CPT/HCPCS: 87635; C9803

== ENCOUNTER 2022-07-09 12:51 | Day surgery (SDC) | payer MEDICARE, BC, OTHER, SELFPAY ==
--- NOTE | 2022-07-09 | PATH_ITS ---
[facility] Accession Number: [id number] . 01 Material submitted: . PART A: colon - SIGMOID COLON POLYP PART B: colon - SIGMOID COLON POLYP X3 PART C: colon - RECTAL/SIGMOID BIOPSY . 01 Diagnosis: A. Sigmoid Colon Polyp, Biopsy: Tubular adenoma. . B. Sigmoid Colon Polyp x3, Biopsy: Tubular adenoma x2. Hyperplastic polyp x1. . C. Rectal/Sigmoid, Biopsy: Tubular adenoma. MRV 07/13/2022 1433 Local . 01 Electronically signed: . Makeda Valente MD, Pathologist NPI- [id number] . 01 Gross description: . Part A: SIGMOID COLON POLYP: Received in formalin is 1 fragment(s) of prasad, soft tissue measuring 0.3 x 0.3 x 0.2 cm submitted entirely in 1 cassette(s) Part B: SIGMOID COLON POLYP X3: Received in formalin are 4 fragment(s) of prasad, soft tissue measuring 0.5 x 0.5 x 0.4 cm to 0.1 x 0.1 x 0.1 cm submitted entirely in 1 cassette(s) Part C: RECTAL/SIGMOID BIOPSY: Received in formalin is 1 fragment(s) of prasad, soft tissue measuring 0.4 x 0.3 x 0.3 cm submitted entirely in 1 cassette(s) /QBJ 07/11/2022 0958 Local . 01 Pathologist provided ICD-10: D12.5, D12.8 . 01 CPT . 794073, 848874, 975740 Specimen Comment: A courtesy copy of this report has been sent to [phone] Performed at: 01 [facility] [address] [place] [address], [place], [place] [id number] MD Dom Javed MD Phone: [phone]
[2022-07-09] MEDS: LACTATED RINGERS 1,000 ML 42 ML IV (13:00)
[2022-07-09 13:22] VITALS: BP 195/99; PULSE 102; RESP 16; TEMP 36.8; O2SAT 99; BMI 30.4
--- NOTE | 2022-07-09 14:56 | PM.HP.1 ---
History of Present Illness History of Present Illness Date Patient Seen: 07/09/22 Time Patient Seen: 14:56 Chief complaint: SDC Narrative: Polyp history Patient History Medical History Diabetes Gastroparesis Hx of cervical cancer Hx of nephrolithotomy with removal of calculi Hypothyroidism Kidney stones Neuropathy Surgical History H/O: hysterectomy Hx of breast biopsy Family & Social History Family History Father Heart disease Gout Mother Heart disease Diabetes mellitus Epilepsy seizure, generalized, convulsive AAA (abdominal aortic aneurysm) Pernicious anemia Gout Thyroid disease Brother Heart disease CAD (coronary artery disease) Sister CAD (coronary artery disease) Heart disease COPD (chronic obstructive pulmonary disease) Cancer UTI (urinary tract infection) Social History: household members none Tobacco & Substance use: Smoking Status Never smoker alcohol intake current alcohol intake frequency holiday/special occasion Substance Use Type does not use Meds Home Medications and Allergies Home Medications Medication Instructions Recorded Confirmed Type Vitamin B-12 2,000 units SUBCUT QMONTH 08/04/20 04/24/22 History aspirin 81 mg tablet,delayed 81 mg PO DAILY 08/04/20 07/09/22 History release cholecalciferol (vitamin D3) 25 1,000 unit DAILY 08/04/20 04/24/22 History mcg (1,000 unit) capsule (Vitamin D3) glipizide 5 mg tablet, extended 5 mg PO DAILY 08/04/20 04/24/22 History release 24 hr levothyroxine 100 mcg tablet 100 mcg PO DAILY 08/04/20 04/24/22 History lisinopril 5 mg tablet 5 mg PO DAILY 08/04/20 04/24/22 History metformin 500 mg tablet 500 mg PO BID 08/04/20 04/24/22 History pantoprazole 40 mg tablet,delayed 40 mg PO DAILY 08/04/20 04/24/22 History release simvastatin 10 mg tablet 10 mg PO DAILY 08/04/20 04/24/22 History Allergies Allergy/AdvReac Type Severity Reaction Status Date / Time iron AdvReac ITCHING Verified 07/09/22 13:38 Review of Systems Review of Systems ROS: Yes All systems reviewed with the patient and are negative except as otherwise documented Exam Vital Signs (past 8 hours): - 07/09/22 13:22 Temperature 98.2 F Pulse Rate 102 H Respiratory Rate 16 Blood Pressure 195/99 H Pulse Oximetry 99 Oxygen Delivery Method Room Air Oxygen Delivery Method Room Air Const General: cooperative HENMT Head: normal to inspection Eyes General: appearance normal, both eyes and all related structures Neck Neck: normal visual inspection Chest Chest: normal inspection of the chest Resp Effort & Inspection: normal respiratory effort Cardio Rate: regular rate GI Inspection: normal to inspection Skin General: no rashes or lesions noted Neuro General: patient alert and patient awake Extrem General: normal to inspection and no pedal edema Psych Appearance: grossly normal Assessment & Plan Assessment & Plan narrative: 72-year-old female with an adenomatous polyp removed from the rectosigmoid junction by piecemeal resection. Surveillance flexible sigmoidoscopy is pursued today. She has had a full bowel prep. Time Spent With Patient Critical Care time: I spent a total of [] minutes of critical care time on this patient's care today; this time is exclusive of procedural time.
--- NOTE | 2022-07-09 14:57 | PM.PREOP ---
Pre-operative Note COVID-19 COVID-19 status: Negative Result date/Date tested (Pos, Neg/Pending): 07/06/22 Criteria for continued procedure: Possibility delay results in more complex future surgery or treatment Interval Note History & Physical reviewed/Exam performed by Physician: Yes Changes to H&P: No ASA Class (for procedural sedation): II
[2022-07-09 16:15] VITALS: BP 123/61; PULSE 77; RESP 16; TEMP 36.5; O2SAT 97
[2022-07-09 16:20] VITALS: BP 110/66; PULSE 86; RESP 14; O2SAT 99
--- NOTE | 2022-07-09 16:24 | PM.OP.COLON ---
Operative Date/Time/Diagnoses Date of procedure: 07/09/22 Time of procedure: 16:24 Pre-op diagnosis: Adenomatous colon polyps Post-op diagnosis: same Procedure & Clinicians Study performed: Flexible sigmoidoscopy with hot snare polypectomy, cold forceps polypectomy, and Mary ink submucosal tattoo placement Same procedure as scheduled: Yes Indications: History of adenomatous colon polyps Surgeon: Darrick Hammond Procedure Notes SCOAP/Timeout: Done Procedure in detail: After the risks and benefits were explained, written and verbal informed consent was obtained. The patient was brought into the procedure room and placed into the left lateral decubitus position. Please see nurse retail selling floor leader notes for sedation details. Digital rectal examination was accomplished. The scope was introduced into the patient and advanced under direct visualization to approximately descending colon. Proximally 40 cm the scope was introduced. The scope was slowly withdrawn to carefully examine the mucosa for any defects or lesions. Comprehensive imaging was accomplished throughout the rectum including the dentate line. The colon was decompressed, the scope was then removed from the patient who tolerated the procedure well. Pediatric colonoscope Bowel prep fair but with copious irrigation and suction rendered adequate Scope withdrawal time: Not applicable Sedation minutes: 29 Complications: none Impression: The scope was introduced into the left colon as described above. There was a diminutive polyp in the sigmoid removed with cold forceps. Initially it was a little difficult to see the prior polypectomy site at 14 cm from the anal verge. There were a few small 5-6 mm polyps in the tortuous distal sigmoid removed with hot snare. The prior polypectomy site was eventually identified with a residual 8 x 4 mm sessile polypoid structure adjacent obvious scarring. We removed this with hot snare application. Following all of our efforts the polyp appeared to be completely excised. I placed a small tattoo immediately distal into the left of the polypectomy site. No additional pathology was appreciated. Endoscopic diagnosis 1. Residual rectosigmoid polyp at 14 cm from the anal verge 2. Additional sigmoid small polyps Post-procedure Plan for aftercare: 1. Await histopathology 2. Surveillance colonoscopy will be contingent on histopathology results. Disposition: PACU
[2022-07-09 16:25] VITALS: BP 133/66; PULSE 92; RESP 18; O2SAT 96
--- NOTE | 2022-07-09 16:25 | SUR.PHASEI ---
licha Hathaway RN hung fluids and I finished it
[2022-07-09 16:29] VITALS: BP 137/73; PULSE 69; RESP 14; TEMP 36.2; O2SAT 99
== END 2022-07-09 16:51 | disposition home or self-care (01) ==
PROVIDERS: Family Provider Family Medicine; PCP Family Medicine; Referring Provider Internal Medicine Gastroenterology; Visit Provider Internal Medicine Gastroenterology
PROC: 0DJD8ZZ Inspection of Lower Intestinal Tract, Via Natural or Artificial Opening Endoscopic (ICD-10-PCS; CPT 45378; principal; 2022-07-09 15:00)
DX: Z12.11 Encounter for screening for malignant neoplasm of colon (principal); Z86.010 Personal history of colon polyps; E11.9 Type 2 diabetes mellitus without complications; Z79.84 Long term (current) use of oral hypoglycemic drugs; D12.5 Benign neoplasm of sigmoid colon; D12.7 Benign neoplasm of rectosigmoid junction
CPT/HCPCS: 45338; 45335

== ENCOUNTER → 2022-09-05 10:34 | Outpatient (CLI) | payer MEDICARE, BC, OTHER, SELFPAY ==
--- NOTE | 2022-09-05 | DI.MG.S_ITS ---
BILATERAL DIGITAL SCREENING MAMMOGRAM 3D/2D WITH CAD: 09/05/2022 CLINICAL: Routine screening. Comparison is made to exams dated: 08/15/2021 mammogram, 08/10/2020 mammogram, and 08/04/2019 mammogram - [facility]. There are scattered areas of fibroglandular density in both breasts (category b / 25%-50% glandular tissue). Current study was also evaluated with a Computer Aided Detection (CAD) system. No significant masses, calcifications, or other findings are seen in either breast. There has been no significant interval change. IMPRESSION: NEGATIVE There is no mammographic evidence of malignancy. A 1 year screening mammogram is recommended. Based on the Tyrer Cuzick model (a risk assessment model) the patient's lifetime risk is 1.7% and her 10 year risk is 1.3%. According to the ACR, ACS, and NCCN guidelines, an annual breast MRI exam along with mammogram is recommended if the patient's lifetime risk is 20% or greater. This exam was interpreted at Station ID: [id number]. NOTE: For mammograms, a report in lay terms will be sent to the patient. Approximately 15% of breast malignancies will not be visualized mammographically. In the management of a palpable breast mass, a negative mammogram must not discourage biopsy of a clinically suspicious lesion. Electronically Signed By: Dami clements/cynthia:09/05/2022 11:01:35 letter sent: Normal Exam ACR BI-RADS Category 1: Negative [id number]
== END ==
PROVIDERS: Family Provider Family Medicine; PCP Family Medicine; Referring Provider Family Medicine; Visit Provider Family Medicine
DX: Z12.31 Encounter for screening mammogram for malignant neoplasm of breast (principal)
CPT/HCPCS: 77063; 77067

== ENCOUNTER → 2022-11-22 10:08 | Outpatient (CLI) | payer MEDICARE, BC, OTHER, SELFPAY ==
--- NOTE | 2022-11-22 | DI.RAD.S_ITS ---
PROCEDURE: XR DEXA AXIAL SKELETON INDICATIONS: OSTEOPOROSIS SCREENING COMPARISON: [facility], CR, XR DEXA AXIAL SKELETON, 11/08/2020, 12:52. FINDINGS: This blank DEXA report has been sent in error by the PACS system. The correct and complete report will be forthcoming in 1-2 days. Thank you for your patience and understanding. Dictated by: Thomas Bettencourt M.D. on 11/22/2022 at 14:31 Approved by: Thomas Bettencourt M.D. on 11/22/2022 at 14:31
== END ==
PROVIDERS: Family Provider Family Medicine; PCP Family Medicine; Referring Provider Family Medicine; Visit Provider Family Medicine
DX: M85.851 Other specified disorders of bone density and structure, right thigh (principal); Z13.820 Encounter for screening for osteoporosis; Z78.0 Asymptomatic menopausal state; Z92.23 Personal history of estrogen therapy; Z90.710 Acquired absence of both cervix and uterus
CPT/HCPCS: 77080

== ENCOUNTER → 2023-06-10 10:05 | Outpatient (CLI) | payer MEDICARE, BC, OTHER, SELFPAY ==
[2023-06-10 11:09] LABS: Add Manual Diff / Slide Review NO; Basophils Absolute Auto 100 /uL (0-100); Basophils Percent Auto 1.3 % (0-2); Eosinophils Absolute Auto 200 /uL (0-450); Eosinophils Percent Auto 2.8 % (2-4); Hematocrit 34.4 % (36-46); Hemoglobin 11.6 g/dL (12.0-16.0); Lymphocytes Absolute Auto 2100 /uL (1100-4500); Lymphocytes Percent Auto 31.4 % (25-40); Mean Corpuscular HGB Conc 33.9 % (30-36); Mean Corpuscular Volume 82.6 fL (80-100); Monocytes Absolute Auto 600 /uL (0-900); Monocytes Percent Auto 9.2 % (3-14); Neutrophils Absolute Auto 3800 /uL (1500-7000); Neutrophils Percent Auto 55.3 % (50-75); Platelet Count 330 X10^3/uL (150-400); Red Blood Cell Count 4.16 X10^6/uL (4.0-5.2); Red Cell Distribution Width 15.6 % (11.6-14.8); White Blood Cell Count 6.8 X10^3/uL (4.5-11.0)
[2023-06-10 11:23] LABS: Alanine Aminotransferase 18 IU/L (<35); Albumin Globulin Ratio 1.3 (1.0-2.8); Alkaline Phosphatase 81 U/L (38-126); Aspartate Aminotransferase 31 IU/L (14-36); BUN Creatinine Ratio 12.2 (6-22); Bilirubin Total 0.2 mg/dL (0.2-1.3); Bilirubin Unconjugated 0.1 mg/dL (0.0-1.1); Blood Urea Nitrogen 11 mg/dL (7-17); Calcium 9.4 mg/dL (8.4-10.2); Carbon Dioxide 23 mmol/L (22-32); Chloride 98 mmol/L (98-107); Estimated Glomerular Filt Rate > 60 mL/min (>60); Globulin 3.2 g/dL (1.7-4.1); Glucose 166 mg/dL (80-110); HEMOLYSIS < 15 (0-50); Potassium 4.5 mmol/L (3.4-5.1); Sodium 134 mmol/L (137-145); Total Protein 7.2 g/dL (6.3-8.2)
== END ==
PROVIDERS: Family Provider Family Medicine; PCP Family Medicine; Referring Provider Internal Medicine Infectious Disease; Visit Provider Internal Medicine Infectious Disease
DX: Z79.899 Other long term (current) drug therapy (principal); M86.671 Other chronic osteomyelitis, right ankle and foot
CPT/HCPCS: 36415; 80048; 80076; 85025

== ENCOUNTER → 2023-09-09 09:50 | Outpatient (CLI) | payer MEDICARE, BC, OTHER, SELFPAY ==
--- NOTE | 2023-09-09 | DI.MG.S_ITS ---
BILATERAL DIGITAL SCREENING MAMMOGRAM 3D/2D WITH CAD: 09/09/2023 CLINICAL: Routine screening. Comparison is made to exams dated: 09/05/2022 mammogram, 08/15/2021 mammogram, 08/10/2020 mammogram, 08/04/2019 mammogram, and 07/10/2018 mammogram - [facility]. There are scattered areas of fibroglandular density in both breasts (category b / 25%-50% glandular tissue). Current study was also evaluated with a Computer Aided Detection (CAD) system. There are benign post operative findings in the left breast. No significant masses, calcifications, or other findings are seen in either breast. There has been no significant interval change. IMPRESSION: BENIGN There is no mammographic evidence of malignancy. A 1 year screening mammogram is recommended. Based on the Tyrer Cuzick model (a risk assessment model) the patient's lifetime risk is 1.6% and her 10 year risk is 1.3%. According to the ACR, ACS, and NCCN guidelines, an annual breast MRI exam along with mammogram is recommended if the patient's lifetime risk is 20% or greater. This exam was interpreted at Station ID: [id number]. NOTE: For mammograms, a report in lay terms will be sent to the patient. Approximately 15% of breast malignancies will not be visualized mammographically. In the management of a palpable breast mass, a negative mammogram must not discourage biopsy of a clinically suspicious lesion. Electronically Signed By: Arcenio lira/cynthia:09/11/2023 07:29:07 letter sent: Normal Exam ACR BI-RADS Category 2: Benign Finding(s) 3342F
== END ==
PROVIDERS: Family Provider Family Medicine; PCP Family Medicine; Referring Provider Family Medicine; Visit Provider Family Medicine
DX: Z12.31 Encounter for screening mammogram for malignant neoplasm of breast (principal)
CPT/HCPCS: 77063; 77067

== ENCOUNTER → 2024-07-08 12:51 | Outpatient (CLI) | payer MEDICARE, BC, OTHER, SELFPAY ==
--- NOTE | 2024-07-08 12:53 | DI.RAD.S_ITS ---
PROCEDURE: XR CLAVICLE LT INDICATIONS: CLAVICAL PAIN TECHNIQUE: 2 views of the clavicle were acquired. COMPARISON: None. FINDINGS: Bones: No fractures or dislocations. No suspicious bony lesions. 1 cm bone island in the humeral head. Acromioclavicular joint space narrowing with osteophytosis. Soft tissues: No suspicious soft tissue calcifications. IMPRESSION: No acute bony abnormality. Dictated by: Garrick Zavala M.D. on 07/08/2024 at 16:07 Approved by: Garrick Zavala M.D. on 07/08/2024 at 16:07
== END ==
PROVIDERS: Family Provider Family Medicine; PCP Family Medicine; Referring Provider Family Medicine; Visit Provider Family Medicine
DX: M25.712 Osteophyte, left shoulder (principal); M89.319 Hypertrophy of bone, unspecified shoulder
CPT/HCPCS: 73000

== ENCOUNTER → 2024-08-12 15:03 | Outpatient (CLI) | payer MEDICARE, BC, OTHER, SELFPAY ==
--- NOTE | 2024-08-12 15:04 | DI.CT.S_ITS ---
PROCEDURE: CT KIDNEY URETER BLADDER (KUB) INDICATIONS: NEPHROLITHIASIS TECHNIQUE: Axial sections were acquired from the lung bases to the pubic symphysis. Coronal and sagittal reformats were performed. For radiation dose reduction, the following was used: automated exposure control, adjustment of mA and/or kV according to patient size. COMPARISON: [facility], CT, CT KIDNEY URETER BLADDER (KUB), 02/22/2022, 12:45. FINDINGS: Image quality: Diagnostic. Lower Chest: Lung bases are clear. Small hiatal hernia. URINARY: Right Kidney: No stones or hydronephrosis. Right Ureter: No hydroureter. Left Kidney: No stones or hydronephrosis. Left Ureter: No hydroureter. Bladder: Decompressed, limiting evaluation. Punctate calcification in the right case is again noted. ABDOMEN: Liver: No contour-deforming solid mass. Gallbladder: No radiopaque gallstones or wall thickening. Biliary ducts: No biliary dilation. Pancreas: No ductal dilation. Spleen: Size is within normal limits. Adrenal Glands: No adrenal nodules. Stomach and Bowel: Normal colonic caliber, without significant wall thickening. Few prominent fluid-filled loops of small bowel within the pelvis. Peritoneum: No abnormal intraperitoneal fluid. No free air. Ventral Wall: No hernia. Abdominal Nodes: No enlarged retroperitoneal or mesenteric lymph nodes. Vessels: Aorta and inferior vena cava are normal in size. Atherosclerotic vascular calcifications. Surgical clips in the region of the left external iliac artery are redemonstrated. PELVIS: Pelvic Organs: Unremarkable. Pelvic Nodes: Unremarkable. Miscellaneous: No inguinal hernias are seen. Bones: Decreased osseous mineralization. Degenerative changes of the spine. IMPRESSION: 1. No obstructing stones or hydronephrosis. 2. Again seen punctate calcification at the radius. Evaluation of bladder is limited secondary to decompression. Consider cystoscopy for further evaluation if not previously performed. 3. Prominent loops of fluid-filled small bowel in the pelvis, consider enteritis. Dictated by: Kana Ac M.D. on 08/12/2024 at 17:34 Approved by: Kana Ac M.D. on 08/12/2024 at 17:41
== END ==
LOC: CT 15:04
PROVIDERS: Family Provider Family Medicine; PCP Family Medicine; Referring Provider Family Medicine; Visit Provider Family Medicine
DX: N20.0 Calculus of kidney (principal); K44.9 Diaphragmatic hernia without obstruction or gangrene
CPT/HCPCS: 74176

== ENCOUNTER → 2024-08-26 13:41 | Outpatient (CLI) | payer MEDICARE, BC, OTHER, SELFPAY | PROVIDERS: Family Provider Family Medicine; PCP Family Medicine; Visit Provider Urology | DX: R39.9 Unspecified symptoms and signs involving the genitourinary system (principal); Z87.442 Personal history of urinary calculi | CPT/HCPCS: 81002; 87077; 87086; 87186; 99213 ==

== ENCOUNTER → 2024-09-11 08:24 | Outpatient (CLI) | payer MEDICARE, BC, OTHER, SELFPAY ==
--- NOTE | 2024-09-11 08:25 | DI.MG.S_ITS ---
BILATERAL DIGITAL SCREENING MAMMOGRAM 3D/2D WITH CAD: 09/11/2024 CLINICAL: Routine screening. Family history of breast cancer. Comparison is made to exams dated: 09/09/2023 mammogram, 09/05/2022 mammogram, 08/15/2021 mammogram, 08/10/2020 mammogram, and 08/04/2019 mammogram - [facility]. There are scattered areas of fibroglandular density (category b / 25%-50% glandular tissue). Current study was also evaluated with a Computer Aided Detection (CAD) system. There are benign post operative findings in the left breast. No significant masses, calcifications, or other findings are seen in either breast. There has been no significant interval change. IMPRESSION: BENIGN There is no mammographic evidence of malignancy. A 1 year screening mammogram is recommended. Based on the Tyrer Cuzick model (a risk assessment model) the patient's lifetime risk is 1.9% and her 10 year risk is 1.7%. According to the ACR, ACS, and NCCN guidelines, an annual breast MRI exam along with mammogram is recommended if the patient's lifetime risk is 20% or greater. This exam was interpreted at Station ID: [id number]. NOTE: For mammograms, a report in lay terms will be sent to the patient. Approximately 15% of breast malignancies will not be visualized mammographically. In the management of a palpable breast mass, a negative mammogram must not discourage biopsy of a clinically suspicious lesion. Electronically Signed By: Georgette More M.D., Ph.D. kimberlyn/cynthia:09/12/2024 16:42:18 letter sent: Normal Exam ACR BI-RADS Category 2: Benign
== END ==
LOC: MAMMO 08:25
PROVIDERS: Family Provider Family Medicine; PCP Family Medicine; Referring Provider Family Medicine; Visit Provider Family Medicine
DX: Z12.31 Encounter for screening mammogram for malignant neoplasm of breast (principal); Z80.3 Family history of malignant neoplasm of breast
CPT/HCPCS: 77063; 77067

== ENCOUNTER → 2024-11-13 10:36 | Outpatient (CLI) | payer MEDICARE, BC, OTHER, SELFPAY ==
--- NOTE | 2024-11-13 10:40 | DI.RAD.S_ITS ---
PROCEDURE: XR DEXA AXIAL SKELETON INDICATIONS: Osteopenia COMPARISON: [facility], CR, XR DEXA AXIAL SKELETON, 11/22/2022, 10:25. FINDINGS: Lumbar Spine: Bone mineral density 1.131 g/cm2, T score 0.8, normal, change from previous 3.3% Statistical significance of bone mineral density change cannot be determined due to dissimilar scan types or analysis method.. Left Femoral Neck: Bone mineral density 0.789 g/cm2, T score -0.5. Normal Left Hip: Bone mineral density 0.734 g/cm2, T score -1.7, osteopenia, change from previous-3.4%. Statistical significance of bone mineral density change cannot be determined due to dissimilar scan types or analysis method.. Fracture Risk Calculation (when applicable): 10-year fracture risk of a major osteoporotic fracture 13 percent and of a hip fracture 4.2 percent. (T score greater or equal to -1.0 to: NORMAL) (T score from -1.1 to -2.4: OSTEOPENIA) (T score less than or equal to -2.5: OSTEOPOROSIS) IMPRESSION: Osteopenia elevates the patient's 10 year fracture risk as described. Increase in lumbar spine bone mineral density, but decrease in left hip bone mineral density since previous exam. Follow-up guidelines as follows: Osteoporosis: Consider a repeat DEXA and Vertebral Fracture Assessment (VFA) exam in 2 years or sooner if medically necessary, to reassess this patient's status. Osteopenia: Consider a repeat DEXA in 2-3 years to reassess this patient's status, or if there is a new clinical indication. Normal: Consider a repeat DEXA in 5 years or sooner, or if there is a new clinical indication. All treatment decisions require clinical judgment and consideration of individual patient factors, including patient preferences, comorbidities, previous drug use, risk factors not captured in the FRAX model (e.g., frailty, falls, vitamin D deficiency, increased bone turnover, interval significant decline in bone density ) and possible under- or over-estimation of fracture risk by FRAX. In addition, the NOF Guide recommends that FDA-approved medical therapies be considered in postmenopausal women and men age >= 50 years with a: * Hip or vertebral (clinical or morphometric) fracture * T-score of <=-2.5 at the spine or hip * Ten-year fracture probability by FRAX of >= 3% for hip fracture or >=20% for major osteoporotic fracture. Dictated by: Kenzie Reyes M.D. on 11/13/2024 at 14:00 Approved by: Kenzie Reyes M.D. on 11/13/2024 at 14:02
== END ==
LOC: RAD 10:39
PROVIDERS: Family Provider Family Medicine; PCP Family Medicine; Referring Provider Family Medicine; Visit Provider Family Medicine
DX: M85.89 Other specified disorders of bone density and structure, multiple sites (principal)
CPT/HCPCS: 77080

== ENCOUNTER → 2025-03-09 07:49 | Outpatient (CLI) | payer MEDICARE, BC, OTHER, SELFPAY ==
[2025-03-09 08:20] LABS: Add Manual Diff / Slide Review NO; Basophils Absolute Auto 0 /uL (0-100); Basophils Percent Auto 0.8 % (0-2); Eosinophils Absolute Auto 200 /uL (0-450); Eosinophils Percent Auto 3.4 % (2-4); Hemoglobin 11.1 g/dL (12.0-16.0); Lymphocytes Absolute Auto 1900 /uL (1100-4500); Lymphocytes Percent Auto 38.2 % (25-40); Mean Corpuscular HGB Conc 33.8 % (30-36); Mean Corpuscular Hemoglobin 27.6 PG (26-34); Mean Corpuscular Volume 81.7 fL (80-100); Monocytes Absolute Auto 400 /uL (0-900); Monocytes Percent Auto 7.9 % (3-14); Neutrophils Absolute Auto 2400 /uL (1500-7000); Neutrophils Percent Auto 49.7 % (50-75); Platelet Count 196 X10^3/uL (150-400); Red Blood Cell Count 4.03 X10^6/uL (4.0-5.2); Red Cell Distribution Width 14.9 % (11.6-14.8); White Blood Cell Count 4.9 X10^3/uL (4.5-11.0)
[2025-03-09 08:59] LABS: Alanine Aminotransferase 20 IU/L (<35); Albumin 4.3 g/dL (3.5-5.0); Albumin Globulin Ratio 1.7 (1.0-2.8); Alkaline Phosphatase 66 U/L (38-126); Aspartate Aminotransferase 34 IU/L (14-36); BUN Creatinine Ratio 15.7 (6-22); Bilirubin Total 0.5 mg/dL (0.2-1.3); Blood Urea Nitrogen 13 mg/dL (7-17); Calcium 9.4 mg/dL (8.4-10.2); Carbon Dioxide 21 mmol/L (22-32); Chloride 108 mmol/L (98-107); Cholesterol 142 mg/dL (140-199); Estimated Glomerular Filt Rate > 60 mL/min (>60); Globulin 2.6 g/dL (1.7-4.1); Glucose 124 mg/dL (70-99); HDL Cholesterol 40 mg/dL (40-60); HEMOLYSIS 18 (0-50); LDL Cholesterol Calculated 80 mg/dL (<100); Potassium 3.8 mmol/L (3.4-5.1); Sodium 141 mmol/L (137-145); Total Protein 6.9 g/dL (6.3-8.2); Triglycerides 111 mg/dL (35-150)
[2025-03-09 09:29] LABS: TSH w/ Reflex to FT4 0.71 uIU/mL (0.47-4.68)
[2025-03-09 09:34] LABS: Ferritin 6 ng/mL (11-264)
[2025-03-09 09:48] LABS: Vitamin B12 341 pg/mL (239-931)
== END ==
LOC: LAB 07:51
PROVIDERS: Family Provider Family Medicine; PCP Family Medicine; Referring Provider Family Medicine; Visit Provider Family Medicine
DX: E03.9 Hypothyroidism, unspecified (principal); D50.9 Iron deficiency anemia, unspecified; E53.8 Deficiency of other specified B group vitamins; E11.40 Type 2 diabetes mellitus with diabetic neuropathy, unspecified; E55.9 Vitamin D deficiency, unspecified; I10 Essential (primary) hypertension; E78.00 Pure hypercholesterolemia, unspecified
CPT/HCPCS: 36415; 80053; 80061; 82607; 82728; 84443; 85025

== ENCOUNTER → 2025-08-20 08:57 | Outpatient (CLI) | payer MEDICARE, BC, OTHER, SELFPAY ==
--- NOTE | 2025-08-20 08:58 | DI.RAD.S_ITS ---
PROCEDURE: XR KUB INDICATIONS: Kidney Stones TECHNIQUE: One view of the abdomen acquired. she COMPARISON: [facility], CT, CT KIDNEY URETER BLADDER (KUB), 08/12/2024, 15:14. FINDINGS: Surgical changes and devices: None. Bowel: Bowel gas pattern is normal. Soft tissues: No suspicious abdominal calcifications. Visualized solid organ contours appear normal in size. Bones: No suspicious bony lesions. Left mid abdominal surgical clips are noted. IMPRESSION: No acute abnormality. No suspicious calcifications are identified. Dictated by: Katie Toure M.D. on 08/20/2025 at 12:14 Approved by: Katie Toure M.D. on 08/20/2025 at 12:17
== END ==
PROVIDERS: Family Provider Family Medicine; PCP Family Medicine; Referring Provider Urology; Visit Provider Urology
DX: Z09 Encounter for follow-up examination after completed treatment for conditions other than malignant neoplasm (principal); Z87.442 Personal history of urinary calculi
CPT/HCPCS: 74018

== ENCOUNTER → 2025-09-15 09:04 | Outpatient (CLI) | payer MEDICARE, BC, OTHER, SELFPAY ==
--- NOTE | 2025-09-15 09:05 | DI.MG.S_ITS ---
MM screening mammo BI: 09/15/2025. BI-RADS: 1 CLINICAL: 75-year old female for bilateral screening mammogram. Tyrer-Cuzick lifetime risk of 5.9%. No personal or first-degree family history of breast cancer. Current reported family history of breast cancer: sister's daughter. The patient had a prior left breast biopsy. PRIOR EXAMS: 09/11/2024, 09/09/2023, 09/05/2022, 08/15/2021, 08/10/2020, 08/04/2019, 07/10/2018, 07/03/2017, 06/22/2016. MAMMOGRAPHY TECHNIQUE: 2D and 3D (tomosynthesis) digital mammographic views obtained, with additional images as needed for full coverage. Current study was also evaluated with a Computer Aided Detection (CAD) system. DENSITY C. The breasts are heterogeneously dense, which may obscure small masses. MAMMOGRAPHY FINDINGS Bilateral: No suspicious mass, asymmetry, microcalcification, or other abnormality seen. IMPRESSION: * No evidence of malignancy. RECOMMENDATIONS Bilateral * Annual screening mammography. OVERALL ASSESSMENT CATEGORY BI-RADS-1: Negative. The [employer] recommends annual screening mammography beginning at age 40 for women with average risk of breast cancer. ELECTRONICALLY SIGNED: Eugenie Huynh M.D. on 09/15/2025 at 04:34:48 PM PT Interpreting Station ID: [id number]
== END ==
PROVIDERS: Family Provider Family Medicine; PCP Family Medicine; Referring Provider Family Medicine; Visit Provider Family Medicine
DX: Z12.31 Encounter for screening mammogram for malignant neoplasm of breast (principal); R92.333 Mammographic heterogeneous density, bilateral breasts; Z80.3 Family history of malignant neoplasm of breast
CPT/HCPCS: 77063; 77067